=== PATIENT | female | born 1955 | race Caucasian/White ===

== ENCOUNTER → 2016-11-28 | Outpatient (CLI) | payer BC ==
[~2016-11-28] MED LIST: EZET10TA63 PO; GLC/500 PO; LEVO88TA PO; METO1TAB69 PO; METO50TA7 PO; OXYC-57 PO; POTA10CA28 PO; POTA20TA16 PO; TRIA37.5 PO
--- NOTE | 2016-11-28 16:45 | MAMMOGRAPHY REPORT ---
BILATERAL DIGITAL SCREENING MAMMOGRAM TOMOSYNTHESIS WITH CAD: 11/28/2016 CLINICAL HISTORY: Routine screening. Patient has no complaints. TECHNIQUE: Breast tomosynthesis in addition to standard 2D mammography was performed. Current study was also evaluated with a Computer Aided Detection (CAD) system. COMPARISON: Comparison is made to exams dated: 11/27/2015 mammogram, 11/22/2013 mammogram, 11/23/2014 [place] mogram, 11/18/2012 mammogram, 11/13/2011 mammogram, and 11/12/2010 mammogram - [facility] nt. BREAST COMPOSITION: The tissue of both breasts is almost entirely fatty. FINDINGS: No suspicious masses, calcifications, or areas of architectural distortion are noted in e ither breast. There has been no significant interval change compared to prior exams. IMPRESSION: ACR BI-RADS CATEGORY 1: NEGATIVE There is no mammographic evidence of malignancy. A 1 year screening mammogram is recommended. The p atient will receive written notification of the results. Approximately 10% of breast cancers are not detected with mammography. A negative mammographic repor t should not delay biopsy if a clinically suggestive mass is present. Mary Zapien M.D. /:11/28/2016 16:12:37 Tar Chaser: Yasmine PORTILLO(Tanja)(M), [facility] letter sent: Normal 1/2 BI-RADS Code: ACR BI-RADS Category 1: Negative
== END | disposition home or self-care (01) ==
LOC: C.MAMM 08:26
PROVIDERS: ATTEND Internal Medicine
DX: Z12.31 Encounter for screening mammogram for malignant neoplasm of breast (principal)

== ENCOUNTER → 2016-11-28 | Outpatient (CLI) | payer BC ==
[2016-11-28 10:07] LABS: BLOOD UREA NITROGEN 14 mg/dl (7-18); BUN/CREATININE RATIO 14.2 (10-20); CALCIUM 8.6 mg/dl (8.5-10.1); CARBON DIOXIDE 31 mmol/L (21-32); CHLORIDE 101 mmol/L (98-107); GLUCOSE 110 mg/dl (70-99); POTASSIUM 3.2 mmol/L (3.5-5.1); SODIUM 140 mmol/L (136-145)
[2016-11-28 10:18] LABS: CHOLESTEROL 194 mg/dl (0-200); CHOLESTEROL/HDL RATIO 4.3; HDL CHOLESTEROL 45 mg/dl; LDL CHOLESTEROL CALCULATED 124 mg/dl; TRIGLYCERIDES 125 mg/dl (0-150); VERY LOW DENSITY LIPOPROT CALC 25 mg/dl
[2016-11-28 10:40] LABS: ESTIMATED AVERAGE GLUCOSE 137 mg/dl; HA1C FLAG Normal (Normal)
== END | disposition home or self-care (01) ==
LOC: C.LAB1850 08:48
PROVIDERS: ATTEND Internal Medicine
DX: R73.03 Prediabetes (principal); E03.9 Hypothyroidism, unspecified; E78.5 Hyperlipidemia, unspecified

== ENCOUNTER 2016-12-15 19:22 | Inpatient (IN) | payer BC ==
[~2016-12-15] VITALS: Ht 154.9 cm; Wt 90.5 kg
[~2016-12-15 19:22] MED LIST changes: -OXYC-57 PO; -POTA10CA28 PO
[2016-12-15] MEDS ORDERED: SODIUM CHLORIDE 0.9% 1000ML 1,000 ML IV STA (19:59)
[2016-12-15] MEDS ORDERED: SODIUM CHLORIDE 0.9% 1000ML 500 ML IV STA (19:59)
[2016-12-15 20:07] LABS: BASO % 0.1 %; BASO ABS # 0.02 K/uL (0-0.2); COMPLETE YES; EOS % 1.1 %; HEMATOCRIT 46.1 % (37-47); IG% 0.2 %; LYMPH % 12.4 %; LYMPH ABS # 1.75 K/uL (1.2-3.4); MEAN CELL VOLUME 83.1 fL (80-100); MEAN CORPUSCULAR HEMOGLOBIN 28.8 pg (25-34); MEAN CORPUSCULAR HGB CONC 34.7 g/dl (32-36); MEAN PLATELET VOLUME 9.6 fL (7.4-10.4); MONO % 5.9 %; NEUT % 80.3 %; PLATELET COUNT 355 K/uL (130-400); RED BLOOD COUNT 5.55 M/uL (4.2-5.4); WHITE BLOOD COUNT 14.17 K/uL (4.8-10.8)
--- NOTE | 2016-12-15 20:11 | EMERGENCY ROOM VISIT NOTE ---
History Report prepared by Cesar: Carmen Longoria Under the Supervision of: Dr. Goldy Fernandez M.D. First contact with patient: 19:56 Chief Complaint: ABDOMINAL PAIN Stated Complaint: ABD/RT SIDE/BACK PAIN Nursing Triage Summary: Pt reports R sided abdominal pain off and on since August. Got worse today, now presents to ER for evaluation. Pt reports nausea today, but no other symptoms. History of Present Illness The patient is a 61 year old female who presents to the Emergency Room with complaints of intermittent right sided abdominal pain that began in August, but worsened this weekend. She rated her discomfort as an 8/10 in severity earlier today. The patient states that she has noticed her pain everywhere from her right flank, right upper quadrant abdominal pain, and epigastric pain. She states that her mother from pancreatic cancer, and states that she talked to Dr. Bartholomew regarding her symptoms several months ago. The patient states that Dr. Bartholomew didn't think that the pain was related to her pancreas, but offered an ultrasound. She states that she declined the ultrasound, and states that she let her symptoms go too long. The patient states that she has an appointment with Dr. Bartholomew tomorrow. She states that last evening she ate a piece of pizza and chips, and states that she noticed increased pain. The patient states that this evening she noticed chills, but denies any fever or urinary symptoms. She denies any previous abdominal surgeries. Source of History: patient Onset: August, worsened this weekend Position: abdomen (right sided) Symptom Intensity: 8/10 Timing: intermittent, worsening Modifying Factors (Worsening): eating (pizza) Associated Symptoms: + chills, No fevers, No urinary symptoms Review of Systems See HPI for pertinent positives & negatives. A total of 10 systems reviewed and were otherwise negative. Past Medical & Surgical No pertinent history stated. Family History Cancer Social History Smoking Status: Never Smoker Marital Status: Housing Status: lives with significant other Occupation Status: employed Current/Historical Medications Scheduled Ezetimibe (Zetia), 10 MG PO DAILY Levothyroxine Sodium (Synthroid), 88 MCG PO DAILY Metformin Hcl (Glucophage), 500 MG PO DAILY Metformin Hcl (Glucophage), 1,000 MG PO QPM Metoprolol Succ (Toprol Xl) (Toprol-Xl ), 100 MG PO DAILY Metoprolol Succ (Toprol Xl) (Toprol-Xl), 50 MG PO DAILY Triamterene/Hctz (Dyazide 37.5MG/25MG), 1 TAB PO DAILY Allergies Coded Allergies: Statins (Unverified Allergy, Unknown, ACHY, 12/15/16) Physical Exam Vital Signs Date Time Temp Pulse Resp B/P Pulse Ox O2 Delivery O2 Flow Rate FiO2 12/15/16 23:44 95 18 147/78 94 Room Air 12/15/16 22:11 97 16 159/82 97 Room Air 12/15/16 21:09 101 14 154/90 95 Room Air 12/15/16 19:29 37.4 113 16 179/84 97 Room Air Physical Exam GENERAL: Patient is in no acute distress. HEENT: No acute trauma, normocephalic atraumatic, mucous membranes moist, no nasal congestion, no scleral icterus. NECK: No stridor, no adenopathy, no meningismus, trachea is midline. LUNGS: Clear to auscultation bilaterally, no wheeze, no rhonchi, breath sounds equal. HEART: Tachycardic, with a regular rhythm, no murmurs. ABDOMEN: Soft, tender in the right upper quadrant and somewhat in the epigastrium, bowel sounds positive, no hernias, no peritonitis. EXTREMITIES: No cyanosis or edema, full range of motion of all the joints without pain or difficulty, no signs for acute trauma. NEUROLOGIC: Oriented x 3, no acute motor or sensory deficits, no focal weakness. SKIN: No rash, no jaundice, no diaphoresis. Medical Decision & Procedures ER Provider Diagnostic Interpretation: X ray results and stated below per my interpretation and radiologist interpretation. Other radiology results and stated below per my review and radiologist interpretation: CHEST ONE VIEW PORTABLE CLINICAL HISTORY: Abdominal pain. COMPARISON STUDY: No previous studies for comparison. FINDINGS: Lung volumes are normal. Lungs are clear. There is no pneumothorax or pleural effusion. Cardiac size is normal. Mediastinal contours are normal. There is no evidence of pulmonary edema. IMPRESSION: No acute cardiopulmonary findings. Electronically signed by: Ethan Mcneill M.D. 12/15/2016 8:26 PM Dictated Date/Time: 12/15/2016 8:[address] OF THE ABDOMEN AND PELVIS WITH CONTRAST CLINICAL HISTORY: Right-sided abdominal and back pain. COMPARISON STUDY: None. TECHNIQUE: Following IV administration of Optiray-320, axial images of the abdomen and pelvis were obtained from the lung bases to the proximal femurs. Images were reviewed in the axial, sagittal, and coronal planes. IV contrast was administered without complication. Oral contrast was administered. CT DOSE: 810.08 mGy.cm FINDINGS: Lung bases are clear. There is moderate gallbladder wall thickening with mild pericholecystic infiltration. There is a peripherally calcified abnormality within the gallbladder neck which could reflect a partially calcified gallstone or minimal calcification of the gallbladder wall. Note is made of mild biliary ductal dilatation. The common bile measures 8 mm in caliber. There is no peripancreatic infiltration. There is no pancreatic ductal dilatation. There is a suspected 1.1 cm cystic lesion within the pancreatic head shown on axial image 159 of 461. There is no evidence for a bowel obstruction. The caliber and wall thickness of small and large bowel are normal. No lymphadenopathy is present. No suspicious skeletal lesions are identified. The uterus is mildly enlarged and heterogeneous. A 2.1 cm hypodense anterior uterine body lesion likely reflects a fibroid. There is a bulbous appearance of the posterior uterine fundus that measures approximately 4.7 cm. This likely reflects an additional fibroid. No hepatic lesions are identified. The spleen is unremarkable with exception of several calcified granulomas. The adrenal glands and kidneys are normal. There is no hydronephrosis. IMPRESSION: 1. Moderate gallbladder wall thickening with mild pericholecystic infiltration suggestive of acute cholecystitis. Peripherally calcified abnormality within the gallbladder neck could reflect a gallstone or less likely gallbladder wall calcification. 2. Mild biliary ductal dilatation which could be correlated with obstructive liver function tests. No peripancreatic infiltration. 3. 1.1 cm cystic lesion within the pancreatic head. This likely reflects a side branch IPMN. A follow-up MRI of the pancreas in 6 months is recommended to ensure stability. 4. Suspected uterine fibroids. Nonemergent follow-up pelvic ultrasound is recommended for confirmation. Electronically signed by: Ethan Mcneill M.D. 12/15/2016 10:49 PM Dictated Date/Time: 12/15/2016 10:39 PM Laboratory Results 12/15/16 19:50 Red Blood Count 5.55, Mean Corpuscular Volume 83.1, Mean Corpuscular Hemoglobin 28.8, Mean Corpuscular Hemoglobin Concent 34.7, Mean Platelet Volume 9.6, Neutrophils (%) (Auto) 80.3, Lymphocytes (%) (Auto) 12.4, Monocytes (%) (Auto) 5.9, Eosinophils (%) (Auto) 1.1, Basophils (%) (Auto) 0.1, Neutrophils # (Auto) 11.37, Lymphocytes # (Auto) 1.75, Monocytes # (Auto) 0.84, Eosinophils # (Auto) 0.16, Basophils # (Auto) 0.02 12/15/16 19:50 Test 12/15/16 19:41 12/15/16 19:50 Urine Color DK YELLOW Urine Appearance CLEAR (CLEAR) Urine pH 5.5 (4.5-7.5) Urine Specific [place] 1.023 (1.000-1.030) Urine Protein NEG (NEG) Urine Glucose (UA) NEG (NEG) Urine Ketones 3+ (NEG) Urine Occult Blood NEG (NEG) Urine Nitrite NEG (NEG) Urine Bilirubin NEG (NEG) Urine Urobilinogen NEG (NEG) Urine Leukocyte Esterase NEG (NEG) White Blood Count 14.17 K/uL (4.8-10.8) Red Blood Count 5.55 M/uL (4.2-5.4) Hemoglobin 16.0 g/dL (12.0-16.0) Hematocrit 46.1 % (37-47) Mean Corpuscular Volume 83.1 fL (80-100) Mean Corpuscular Hemoglobin 28.8 pg (25-34) Mean Corpuscular Hemoglobin Concent 34.7 g/dl (32-36) Platelet Count 355 K/uL (130-400) Mean Platelet Volume 9.6 fL (7.4-10.4) Neutrophils (%) (Auto) 80.3 % Lymphocytes (%) (Auto) 12.4 % Monocytes (%) (Auto) 5.9 % Eosinophils (%) (Auto) 1.1 % Basophils (%) (Auto) 0.1 % Neutrophils # (Auto) 11.37 K/uL (1.4-6.5) Lymphocytes # (Auto) 1.75 K/uL (1.2-3.4) Monocytes # (Auto) 0.84 K/uL (0.11-0.59) Eosinophils # (Auto) 0.16 K/uL (0-0.5) Basophils # (Auto) 0.02 K/uL (0-0.2) RDW Standard Deviation 38.9 fL (36.4-46.3) RDW Coefficient of Variation 12.9 % (11.5-14.5) Immature Granulocyte % (Auto) 0.2 % Immature Granulocyte # (Auto) 0.03 K/uL (0.00-0.02) Anion Gap 9.0 mmol/L (3-11) Est Creatinine Clear Calc Drug Dose 60.5 ml/min Estimated GFR () 70.4 Estimated GFR (Non- 60.8 BUN/Creatinine Ratio 14.0 (10-20) Calcium Level 9.8 mg/dl (8.5-10.1) Total Bilirubin 1.1 mg/dl (0.2-1) Aspartate Amino Transf (AST/SGOT) 26 U/L (15-37) Alanine Aminotransferase (ALT/SGPT) 39 U/L (12-78) Alkaline Phosphatase 106 U/L (45-117) Troponin I < 0.015 ng/ml (0-0.045) Total Protein 8.7 gm/dl (6.4-8.2) Albumin 3.8 gm/dl (3.4-5.0) Globulin 4.9 gm/dl (2.5-4.0) Albumin/Globulin Ratio 0.8 (0.9-2) Lipase 236 U/L (73-393) Thyroid Stimulating Hormone (TSH) 1.870 uIu/ml (0.300-4.500) Laboratory results reviewed by me. Medications Administered Medications (Trade) Dose Ordered Sig/Joe Route Start Time Stop Time Status Last Admin Dose Admin Sodium Chloride 500 ml @ 999 mls/hr Q31M STAT IV 12/15/16 19:59 12/15/16 20:29 DC 12/15/16 20:27 999 MLS/HR Sodium Chloride 1,000 ml @ 200 mls/hr Q5H STAT IV 12/15/16 19:59 12/16/16 00:58 12/15/16 20:27 200 MLS/HR Sodium Chloride (Nss 500ml) 500 ml @ 999 mls/hr Q31M STAT IV 12/15/16 21:25 12/15/16 21:55 DC 12/15/16 21:25 999 MLS/HR Ondansetron HCl (Zofran Inj) 4 mg NOW STAT IV 12/15/16 21:52 12/15/16 21:53 DC 12/15/16 21:56 4 MG Piperacillin Sod/ Tazobactam Sod (Zosyn Iv) 4.5 gm NOW STAT IV 12/15/16 23:20 12/15/16 23:21 DC 12/15/16 23:41 4.5 GM Morphine Sulfate (MoRPHine SULFATE INJ) 4 mg Q15M PRN IV 12/15/16 23:30 12/29/16 23:29 12/15/16 23:39 4 MG ED Course 1956: The patient was evaluated in room B11B. A complete history and physical exam was performed. 1958: Ordered Sodium Chloride 1000 ml @ 200 mls/hr IV, Sodium Chloride 500 ml @ 999 mls/hr IV. 2124: Ordered Sodium Chloride 1000 ml @ 500 mls/hr IV. 2151: Per nursing staff the patient is nauseous. Ordered Zofran Inj 4 mg IV. 2321: I reevaluated the patient and she is resting comfortably. I discussed the exam findings with her and I discussed the treatment plan. She verbalized complete understanding and agreement. Surgery has been paged for the patient and the surgeon is going to call back as soon as he is out of the operating room. 0: Ordered Zosyn IV 4.5 gm IV. 2330: Ordered Morphine Sulfate 4 mg IV. Medical Decision The patient is a 61 year old female who presents to the ED with complaints of abdominal pain. Differential diagnoses considered include biliary colic, pancreatitis, hepatitis, acute cholecystitis, pneumonia, diverticulitis, appendicitis, UTI, musculoskeletal pain. There is a moderate leukocytosis which is consistent with infection, no concerning anemia. No significant electrolyte abnormality, kidney failure or hepatitis. There is no pancreatitis. The patient appears to be in a euthyroid state. Urinalysis does not show evidence for infection. Chest x-ray shows no pneumonia or free air. EKG shows a sinus tachycardia, no acute ischemia. Cardiac enzyme testing times one is not consistent with acute cardiac injury. Abdominal CT shows evidence for acute cholecystitis. The patient received IV Zosyn for antibiotic coverage. She was given IV Zofran and IV saline. She was given IV morphine for pain control. The patient presents with abdominal pain. She was tender in the right upper quadrant and epigastrium. She appears to have acute cholecystitis by workup. Admission/observation is warranted. The on-call surgeon has been consulted. I discussed my findings with the patient and case management. Consults Time Called: 2320 Consulting Physician: General Surgeon Impression Primary Impression: Acute cholecystitis Scribe Attestation The scribe's documentation has been prepared under my direction and personally reviewed by me in its entirety. I confirm that the note above accurately reflects all work, treatment, procedures, and medical decision making performed by me. Departure Information Dispostion Being Evaluated By Surgeon Referrals Pro,Mejia Sinha M.D. (PCP)
[2016-12-15] MEDS ORDERED: OPTIRAY 320 IV PRN (20:15)
[2016-12-15 20:24] LABS: ALT/SGPT 39 U/L (12-78); BLOOD UREA NITROGEN 14 mg/dl (7-18); CALCIUM 9.8 mg/dl (8.5-10.1); CARBON DIOXIDE 30 mmol/L (21-32); CHLORIDE 95 mmol/L (98-107); GLUCOSE 125 mg/dl (70-99); POTASSIUM 3.1 mmol/L (3.5-5.1); SODIUM 134 mmol/L (136-145)
[2016-12-15 20:25] LABS: URINE APPEARANCE CLEAR (CLEAR); URINE BILIRUBIN NEG (NEG); URINE COLOR DK YELLOW; URINE NITRITE NEG (NEG); URINE PH 5.5 (4.5-7.5); URINE SPECIFIC GRAVITY 1.023 (1.000-1.030); UROBILINOGEN NEG (NEG); ZZUR CULT IF INDIC CLEAN CATCH NO
[2016-12-15 20:27] LABS: MANUAL MICROSCOPIC REQUIRED? NO; REVIEW REQ? NO
--- NOTE | 2016-12-15 20:27 | DIAGNOSTIC IMAGING REPORT ---
CHEST ONE VIEW PORTABLE CLINICAL HISTORY: Abdominal pain. COMPARISON STUDY: No previous studies for comparison. FINDINGS: Lung volumes are normal. Lungs are clear. There is no pneumothorax or pleural effusion. Cardiac size is normal. Mediastinal contours are normal. There is no evidence of pulmonary edema. IMPRESSION: No acute cardiopulmonary findings. Electronically signed by: Ethan Mcneill M.D. 12/15/2016 8:26 PM Dictated Date/Time: 12/15/2016 8:25 PM
[2016-12-15 20:34] LABS: ALB/GLOB RATIO 0.8 (0.9-2); ALKALINE PHOSPHATASE 106 U/L (45-117); AST/SGOT 26 U/L (15-37)
[2016-12-15] MEDS ORDERED: SODIUM CHLORIDE 0.9% 500ML 500 ML IV STA (21:25)
[2016-12-15] MEDS ORDERED: ONDANSETRON INJ 2 MG/ML 2 ML VIAL IV STA (21:52)
--- NOTE | 2016-12-15 22:51 | DIAGNOSTIC IMAGING REPORT ---
CT OF THE ABDOMEN AND PELVIS WITH CONTRAST CLINICAL HISTORY: Right-sided abdominal and back pain. COMPARISON STUDY: None. TECHNIQUE: Following IV administration of Optiray-320, axial images of the abdomen and pelvis were obtained from the lung bases to the proximal femurs. Images were reviewed in the axial, sagittal, and coronal planes. IV contrast was administered without complication. Oral contrast was administered. CT DOSE: 810.08 mGy.cm FINDINGS: Lung bases are clear. There is moderate gallbladder wall thickening with mild pericholecystic infiltration. There is a peripherally calcified abnormality within the gallbladder neck which could reflect a partially calcified gallstone or minimal calcification of the gallbladder wall. Note is made of mild biliary ductal dilatation. The common bile measures 8 mm in caliber. There is no peripancreatic infiltration. There is no pancreatic ductal dilatation. There is a suspected 1.1 cm cystic lesion within the pancreatic head shown on axial image 159 of 461. There is no evidence for a bowel obstruction. The caliber and wall thickness of small and large bowel are normal. No lymphadenopathy is present. No suspicious skeletal lesions are identified. The uterus is mildly enlarged and heterogeneous. A 2.1 cm hypodense anterior uterine body lesion likely reflects a fibroid. There is a bulbous appearance of the posterior uterine fundus that measures approximately 4.7 cm. This likely reflects an additional fibroid. No hepatic lesions are identified. The spleen is unremarkable with exception of several calcified granulomas. The adrenal glands and kidneys are normal. There is no hydronephrosis. IMPRESSION: 1. Moderate gallbladder wall thickening with mild pericholecystic infiltration suggestive of acute cholecystitis. Peripherally calcified abnormality within the gallbladder neck could reflect a gallstone or less likely gallbladder wall calcification. 2. Mild biliary ductal dilatation which could be correlated with obstructive liver function tests. No peripancreatic infiltration. 3. 1.1 cm cystic lesion within the pancreatic head. This likely reflects a side branch IPMN. A follow-up MRI of the pancreas in 6 months is recommended to ensure stability. 4. Suspected uterine fibroids. Nonemergent follow-up pelvic ultrasound is recommended for confirmation. Electronically signed by: Ethan Mcneill M.D. 12/15/2016 10:49 PM Dictated Date/Time: 12/15/2016 10:39 PM
[2016-12-15] MEDS ORDERED: PIPERACILLIN/TAZOBACTAM 4.5 GM/100ML D5W IV STA (23:20)
[2016-12-15] MEDS ORDERED: MoRPHine SULFATE 4 MG/ML 1 ML CARP\\VIAL IV PRN (23:30)
--- NOTE | 2016-12-16 00:33 | History and Physical ---
History & Physical Date & Time of Service: Dec 16, 2016 at 00:26 Chief Complaint: Abd/Rt Side/Back Pain Primary Care Physician: Mejia Bartholomew M.D. History of Present Illness Source: patient The patient is a 61 year old female who presents to the Emergency Room with complaints of intermittent right sided abdominal pain that began in August, but worsened this weekend. She rated her discomfort as an 8/10 in severity earlier today. The patient states that she has noticed her pain everywhere from her right flank, right upper quadrant abdominal pain, and epigastric pain.pt denies diarrhea, no fever, Family History Cancer Social History Smoking Status: Never Smoker Smokeless Tobacco Use: No Alcohol Use: none Drug Use: none Marital Status: Occupational Status: employed Multi-Drug Resistant Organisms History of MDRO: No Allergies Coded Allergies: Statins (Unverified Allergy, Unknown, ACHY, 12/15/16) Home Medications Scheduled Ezetimibe (Zetia), 10 MG PO DAILY Levothyroxine Sodium (Synthroid), 88 MCG PO DAILY Metformin Hcl (Glucophage), 500 MG PO DAILY Metformin Hcl (Glucophage), 1,000 MG PO QPM Metoprolol Succ (Toprol Xl) (Toprol-Xl ), 100 MG PO DAILY Metoprolol Succ (Toprol Xl) (Toprol-Xl), 50 MG PO DAILY Triamterene/Hctz (Dyazide 37.5MG/25MG), 1 TAB PO DAILY Review of Systems Constitutional: No chills, No fatigue, No fever, No problem reported, No sweats , No weakness, No weight loss Eyes: No diplopia, No discharge, No eye pain, No problem reported, No redness, No worsening of vision ENT: No dental problems, No hearing loss, No nasal symptoms, No problem reported, No sore throat, No tinnitus, No trouble swallowing, No unusual epistaxis Respiratory: No cough, No dyspnea at rest, No dyspnea on exertion, No hemoptysis, No problem reported, No shortness of breath, No sputum, No wheezing Cardiovascular: No PND, No chest pain, No claudication, No edema, No orthopnea , No palpitations, No problem reported Abdomen: + nausea, + pain, + vomiting Genitourinary - Female: No dysmenorrhea, No dysuria, No hematuria, No menorrhagia, No metrorrhagia, No , No problem reported, No rash, No urinary frequency, No urinary incontinence, No urinary retention, No urinary urgency, No vaginal bleeding, No vaginal discharge, No vaginal itching, No vulvodynia Neurologic: No balance problems, No memory loss, No numbness/tingling, No paralysis, No problem reported, No vertigo, No weakness Psychiatric: No anhedonism, No anxiety, No depression symptoms, No insomnia, No problem reported, No substance abuse Endocrine: No excessive thirst, No excessive urination, No fatigue, No problem reported Hematologic / Lymphatic: No abnormal bleeding/bruising, No clotting problems, No night sweats, No problem reported, No swollen lymph nodes Physical Exam Vital Signs Date Time Temp Pulse Resp B/P Pulse Ox O2 Delivery O2 Flow Rate FiO2 12/15/16 23:44 95 18 147/78 94 Room Air 12/15/16 22:11 97 16 159/82 97 Room Air 12/15/16 21:09 101 14 154/90 95 Room Air 12/15/16 19:29 37.4 113 16 179/84 97 Room Air General Appearance: WD/WN Head: normocephalic Eyes: normal inspection ENT: normal ENT inspection Neck: supple, no JVD Respiratory/Chest: chest non-tender, lungs clear, normal breath sounds Cardiovascular: regular rate, rhythm, no edema, no gallop, no JVD Abdomen/GI: soft, + tenderness Genitourinary - Female: external genitalia normal Extremities/Musculoskelatal: normal inspection, no calf tenderness, normal capillary refill Neurologic/Psych: no motor/sensory deficits, alert, normal mood/affect Skin: normal color, warm/dry, no rash Diagnostics Laboratory Results Results Past 24 Hours Test 12/15/16 19:41 12/15/16 19:50 Range/Units Urine Color DK YELLOW Urine Appearance CLEAR CLEAR Urine pH 5.5 4.5-7.5 Urine Specific [place] 1.023 1.000-1.030 Urine Protein NEG NEG Urine Glucose (UA) NEG NEG Urine Ketones 3+ NEG Urine Occult Blood NEG NEG Urine Nitrite NEG NEG Urine Bilirubin NEG NEG Urine Urobilinogen NEG NEG Urine Leukocyte Esterase NEG NEG White Blood Count 14.17 4.8-10.8 K/uL Red Blood Count 5.55 4.2-5.4 M/uL Hemoglobin 16.0 12.0-16.0 g/dL Hematocrit 46.1 37-47 % Mean Corpuscular Volume 83.1 80-100 fL Mean Corpuscular Hemoglobin 28.8 25-34 pg Mean Corpuscular Hemoglobin Concent 34.7 32-36 g/dl Platelet Count 355 130-400 K/uL Mean Platelet Volume 9.6 7.4-10.4 fL Neutrophils (%) (Auto) 80.3 % Lymphocytes (%) (Auto) 12.4 % Monocytes (%) (Auto) 5.9 % Eosinophils (%) (Auto) 1.1 % Basophils (%) (Auto) 0.1 % Neutrophils # (Auto) 11.37 1.4-6.5 K/uL Lymphocytes # (Auto) 1.75 1.2-3.4 K/uL Monocytes # (Auto) 0.84 0.11-0.59 K/uL Eosinophils # (Auto) 0.16 0-0.5 K/uL Basophils # (Auto) 0.02 0-0.2 K/uL RDW Standard Deviation 38.9 36.4-46.3 fL RDW Coefficient of Variation 12.9 11.5-14.5 % Immature Granulocyte % (Auto) 0.2 % Immature Granulocyte # (Auto) 0.03 0.00-0.02 K/uL Sodium Level 134 136-145 mmol/L Potassium Level 3.1 3.5-5.1 mmol/L Chloride Level 95 98-107 mmol/L Carbon Dioxide Level 30 21-32 mmol/L Anion Gap 9.0 3-11 mmol/L Blood Urea Nitrogen 14 7-18 mg/dl Creatinine 1.00 0.60-1.20 mg/dl Est Creatinine Clear Calc Drug Dose 60.5 ml/min Estimated GFR () 70.4 Estimated GFR (Non- 60.8 BUN/Creatinine Ratio 14.0 10-20 Random Glucose 125 70-99 mg/dl Calcium Level 9.8 8.5-10.1 mg/dl Total Bilirubin 1.1 0.2-1 mg/dl Aspartate Amino Transf (AST/SGOT) 26 15-37 U/L Alanine Aminotransferase (ALT/SGPT) 39 12-78 U/L Alkaline Phosphatase 106 45-117 U/L Troponin I < 0.015 0-0.045 ng/ml Total Protein 8.7 6.4-8.2 gm/dl Albumin 3.8 3.4-5.0 gm/dl Globulin 4.9 2.5-4.0 gm/dl Albumin/Globulin Ratio 0.8 0.9-2 Lipase 236 73-393 U/L Thyroid Stimulating Hormone (TSH) 1.870 0.300-4.500 uIu/ml Diagnostic Radiology CT scan-IMPRESSION: 1. Moderate gallbladder wall thickening with mild pericholecystic infiltration suggestive of acute cholecystitis. Peripherally calcified abnormality within the gallbladder neck could reflect a gallstone or less likely gallbladder wall calcification. 2. Mild biliary ductal dilatation which could be correlated with obstructive liver function tests. No peripancreatic infiltration. 3. 1.1 cm cystic lesion within the pancreatic head. This likely reflects a side branch IPMN. A follow-up MRI of the pancreas in 6 months is recommended to ensure stability. 4. Suspected uterine fibroids. Nonemergent follow-up pelvic ultrasound is recommended for confirmation. Impression Assessment and Plan IMP acute cholecystitis Plan: admit to hospital IV fluid, antibiotic, control pain U/S study gallbladder possible do laparoscopic cholecystectomy tomorrow, D/W benefits, risks and alternatives of the procedure, the risks- infection, bleeding, injury CBD, bowel , NH, DVT, stroke, , pt understood, she agrees with the plan. I answered all questions, ASA Classification: ASA Class II Level of Care Med/Surg VTE Prophylaxis Given or contraindicated: SCD's
[2016-12-16] MEDS ORDERED: IV FLUIDS COMPLETED PRN (02:30)
[2016-12-16 02:41] VITALS: Ht 154.9 cm; Wt 90.5 kg
[2016-12-16] MEDS: HYDROmorphone INJ 1 MG/ML SYR IV PRN ×2 (04:25→07:45)
[2016-12-16] MEDS: D5W AND 1/2NSS + 40MEQ KCL 1,000 ML IV SCH ×3 (04:25→23:16)
[2016-12-16] MEDS: ONDANSETRON INJ 2 MG/ML 2 ML VIAL IV PRN ×2 (04:25→12:07)
[2016-12-16] MEDS ORDERED: NURSING VERBAL MED ORDER ONE ×2 (04:30→17:45)
[2016-12-16] MEDS: PIPERACILL/TAZOBAC IV 3.375 GM in DEXTROSE 5% 100ML 100 ML IV SCH ×3 (05:38→22:34)
[2016-12-16] MEDS: OXYCODONE/ACETAMINOPHEN 5-325 TAB PO PRN (05:56)
[2016-12-16 07:18] VITALS: BP 128/77; PULSE 91; TEMP 36.8; O2SAT 91
--- NOTE | 2016-12-16 07:18 | DIAGNOSTIC IMAGING REPORT ---
ULTRASOUND RIGHT UPPER QUADRANT ABDOMEN CLINICAL HISTORY: Right upper quadrant abdominal pain. COMPARISON STUDY: Abdominal CT dated 12/15/2016. TECHNIQUE: Real-time, grayscale, and color flow sonography of the right upper quadrant of the abdomen was performed. Images are reviewed in the transverse and longitudinal planes. FINDINGS: Liver: The liver is enlarged and demonstrates heterogeneously increased echotexture consistent with severe hepatic steatosis. Fatty sparing is noted adjacent to gallbladder fossa. There is mild central intrahepatic biliary ductal dilatation. The main portal vein is patent. Gallbladder: There are shadowing calcified gallstones and biliary sludge. The gallbladder is significantly distended and the wall is thickened measuring up to 5 mm. There is trace pericholecystic fluid. A sonographic Gilbert's sign is reportedly present. The common bile duct measures up to 1.0 cm in diameter. Pancreas: Visualized portions of the pancreatic head and body are normal in appearance. Right kidney: Survey images of the right kidney demonstrate mild cortical atrophy. There is no hydronephrosis. Ascites: None. IMPRESSION: 1. Cholelithiasis with evidence of acute cholecystitis. Surgical consultation is advised. 2. Hepatomegaly and severe hepatic steatosis. 3. The common bile duct is dilated measuring up to 1.0 cm. There is also intrahepatic biliary ductal dilatation. Electronically signed by: Goldy Jimenez M.D. 12/16/2016 7:16 AM Dictated Date/Time: 12/16/2016 7:14 AM
[2016-12-16 12:39] LABS: HEMATOCRIT 41.5 % (37-47); MEAN CELL VOLUME 84.2 fL (80-100); MEAN CORPUSCULAR HEMOGLOBIN 29.6 pg (25-34); MEAN PLATELET VOLUME 9.7 fL (7.4-10.4); PLATELET COUNT 337 K/uL (130-400); RED BLOOD COUNT 4.93 M/uL (4.2-5.4); WHITE BLOOD COUNT 14.48 K/uL (4.8-10.8)
[2016-12-16 12:48] LABS: MEAN CORPUSCULAR HGB CONC 35.2 g/dl (32-36)
[2016-12-16 12:49] LABS: BUN/CREATININE RATIO 12.1 (10-20); CALCIUM 8.8 mg/dl (8.5-10.1); CREATININE 0.94 mg/dl (0.60-1.20); POTASSIUM 3.8 mmol/L (3.5-5.1)
--- NOTE | 2016-12-16 12:54 | Surgery Progress Note ---
Surgery Progress Note Date of Service Dec 16, 2016. Subjective Post OP Day: HD # 1 + feeling well, + nausea, + pain controlled, + vomiting (vomited this am), No SOB, No chest pain, No complaints Objective Vital Signs: Date Time Temp Pulse Resp B/P Pulse Ox O2 Delivery O2 Flow Rate FiO2 12/16/16 07:40 Room Air 12/16/16 07:18 36.8 91 16 128/77 91 Room Air 12/16/16 02:49 Room Air 12/16/16 02:41 Room Air 12/16/16 01:04 97 20 163/94 96 Room Air 12/15/16 23:44 95 18 147/78 94 Room Air 12/15/16 22:11 97 16 159/82 97 Room Air 12/15/16 21:09 101 14 154/90 95 Room Air 12/15/16 19:29 37.4 113 16 179/84 97 Room Air General Appearance: WD/WN, no apparent distress, + obese Head: normocephalic, atraumatic Respiratory/Chest: no respiratory distress, no accessory muscle use Abdomen: non distended, soft, + tenderness (RUQ) Laboratory Results: Results Past 24 Hours Test 12/15/16 19:41 12/15/16 19:50 12/16/16 12:22 Range/Units Urine Color DK YELLOW Urine Appearance CLEAR CLEAR Urine pH 5.5 4.5-7.5 Urine Specific [place] 1.023 1.000-1.030 Urine Protein NEG NEG Urine Glucose (UA) NEG NEG Urine Ketones 3+ NEG Urine Occult Blood NEG NEG Urine Nitrite NEG NEG Urine Bilirubin NEG NEG Urine Urobilinogen NEG NEG Urine Leukocyte Esterase NEG NEG White Blood Count 14.17 14.48 4.8-10.8 K/uL Red Blood Count 5.55 4.93 4.2-5.4 M/uL Hemoglobin 16.0 14.6 12.0-16.0 g/dL Hematocrit 46.1 41.5 37-47 % Mean Corpuscular Volume 83.1 84.2 80-100 fL Mean Corpuscular Hemoglobin 28.8 29.6 25-34 pg Mean Corpuscular Hemoglobin Concent 34.7 35.2 32-36 g/dl Platelet Count 355 337 130-400 K/uL Mean Platelet Volume 9.6 9.7 7.4-10.4 fL Neutrophils (%) (Auto) 80.3 % Lymphocytes (%) (Auto) 12.4 % Monocytes (%) (Auto) 5.9 % Eosinophils (%) (Auto) 1.1 % Basophils (%) (Auto) 0.1 % Neutrophils # (Auto) 11.37 1.4-6.5 K/uL Lymphocytes # (Auto) 1.75 1.2-3.4 K/uL Monocytes # (Auto) 0.84 0.11-0.59 K/uL Eosinophils # (Auto) 0.16 0-0.5 K/uL Basophils # (Auto) 0.02 0-0.2 K/uL RDW Standard Deviation 38.9 39.8 36.4-46.3 fL RDW Coefficient of Variation 12.9 13.2 11.5-14.5 % Immature Granulocyte % (Auto) 0.2 % Immature Granulocyte # (Auto) 0.03 0.00-0.02 K/uL Sodium Level 134 136 136-145 mmol/L Potassium Level 3.1 3.8 3.5-5.1 mmol/L Chloride Level 95 102 98-107 mmol/L Carbon Dioxide Level 30 23 21-32 mmol/L Anion Gap 9.0 11.0 3-11 mmol/L Blood Urea Nitrogen 14 11 7-18 mg/dl Creatinine 1.00 0.94 0.60-1.20 mg/dl Est Creatinine Clear Calc Drug Dose 60.5 64.3 ml/min Estimated GFR () 70.4 75.9 Estimated GFR (Non- 60.8 65.5 BUN/Creatinine Ratio 14.0 12.1 10-20 Random Glucose 125 172 70-99 mg/dl Calcium Level 9.8 8.8 8.5-10.1 mg/dl Total Bilirubin 1.1 0.2-1 mg/dl Aspartate Amino Transf (AST/SGOT) 26 226 15-37 U/L Alanine Aminotransferase (ALT/SGPT) 39 205 12-78 U/L Alkaline Phosphatase 106 45-117 U/L Troponin I < 0.015 0-0.045 ng/ml Total Protein 8.7 6.4-8.2 gm/dl Albumin 3.8 2.9 3.4-5.0 gm/dl Globulin 4.9 2.5-4.0 gm/dl Albumin/Globulin Ratio 0.8 0.9-2 Lipase 236 73-393 U/L Thyroid Stimulating Hormone (TSH) 1.870 0.300-4.500 uIu/ml Hepatitis C Antibody Screen NEG NEG Assessment & Plan Acute Cholecystitis Dilated CBD - Leukocytosis of 14.8 - CMP pending - Abdominal pain controlled with Dilaudid - slight nausea Plan: Continue IV fluids, IV antibiotics and pain management Start full liquids NPO after midnight Plan for Laparoscopic Cholecystectomy tomorrow Repeat labs in am Encouraged ambulation Dr. Herrmann has seen and examined patient, agrees with above stated findings and treatment plan.
[2016-12-16 12:55] LABS: ALB/GLOB RATIO 0.7 (0.9-2)
--- NOTE | 2016-12-16 15:10 | Gastrointestinal Consultation ---
Gastrointestinal Consultation Date of Consultation: Dec 16, 2016 Consulting Physician: Stoney Reason for Consultation: choledocolithiasis, CBD dilation History of Present Illness Patient is a 61 year old female with past medical history significant for insulin resistance, HTN, hypothyroidism and dyslipidemia who presented to the ED with severe right upper quadrant abdominal pain. She reports for the past few months she has had intermittent abdominal discomfort, right upper quadrant and epigastric region. This pain would wax and wane. Two days ago, after dinner there was an abrupt onset increase in pain 7/10. This was located in the right upper quadrant and epigastric region. It was sharp stabbing and did not radiate. There was associated nausea and vomiting. and she was unable to identify alleviating factors. No other GI symptoms reported. No change in bowels , black/bloody stools, unintentional weight loss, fever, chills, chest pain, SOB. GI was consulted this morning with new elevating in LFTs and a lipase of 2502. RUQ US 12/16/16: Cholelithiasis with evidence of acute cholecystitis. Surgical consultation is advised. Hepatomegaly and severe hepatic steatosis. The common bile duct is dilated measuring up to 1.0 cm. There is also intrahepatic biliary ductal dilatation. CT abd 12/15/16: Moderate gallbladder wall thickening with mild pericholecystic infiltration suggestive of acute cholecystitis. Peripherally calcified abnormality within the gallbladder neck could reflect a gallstone or less likely gallbladder wall calcification. Mild biliary ductal dilatation which could be correlated with obstructive liver function tests. No peripancreatic infiltration. 1.1 cm cystic lesion within the pancreatic head. This likely reflects a side branch IPMN. A follow-up MRI of the pancreas in 6 months is recommended to ensure stability. Suspected uterine fibroids. Nonemergent follow- up pelvic ultrasound is recommended for confirmation. Past Medical/Surgical History Medical Problems: (1) Acute cholecystitis Status: Acute Family History Cancer Social History Smoking Status: Never Smoker Drug Use: none Marital Status: Housing Status: lives with significant other Occupation Status: employed Allergies Coded Allergies: Statins (Unverified Allergy, Unknown, ACHY, 12/15/16) Current Medications Home Meds and Scripts Medications Dose Route/Sig Max Daily Dose Days Date Category Dose Instructions Toprol-Xl (Metoprolol Succinate) 50 Mg Tabcr 50 Mg PO DAILY 10/11/13 Reported TAKE WITH 100 MG TABLET TO EQUAL 150 MG'S A DAY. Zetia (Ezetimibe) 10 Mg Tab 10 Mg PO DAILY 10/11/13 Reported Dyazide 37.5MG/25MG (Triamterene/HCTZ) Cap 1 Tab PO DAILY 10/11/13 Reported Toprol-Xl (Metoprolol Succinate) 100 Mg Tabcr 100 Mg PO DAILY 10/11/13 Reported TAKE WITH 50 MG TABLET TO EQUAL 150 MG'S DAILY. Glucophage (Metformin Hcl) 500 Mg Tab 1,000 Mg PO QPM 10/11/13 Reported TAKE 2 TABLETS AT DINNER Glucophage (Metformin Hcl) 500 Mg Tab 500 Mg PO DAILY 10/11/13 Reported TAKE ONE TABLET WITH BREAKFAST. Synthroid (Levothyroxine Sodium) 88 Mcg Tab 88 Mcg PO DAILY 10/11/13 Reported Review of Systems Constitutional: No chills, No fever Respiratory: No cough, No shortness of breath Cardiac: No chest pain, No edema Abdomen: + nausea, + pain, No GI bleeding, No constipation, No diarrhea, No vomiting Physical Exam Date Time Temp Pulse Resp B/P Pulse Ox O2 Delivery O2 Flow Rate FiO2 12/16/16 07:40 Room Air 12/16/16 07:18 36.8 91 16 128/77 91 Room Air 12/16/16 02:49 Room Air 12/16/16 02:41 Room Air 12/16/16 01:04 97 20 163/94 96 Room Air 12/15/16 23:44 95 18 147/78 94 Room Air 12/15/16 22:11 97 16 159/82 97 Room Air 12/15/16 21:09 101 14 154/90 95 Room Air 12/15/16 19:29 37.4 113 16 179/84 97 Room Air General Appearance: no apparent distress Eyes: PERRL, EOMI ENT: hearing grossly normal Neck: supple, trachea midline Respiratory/Chest: lungs clear, normal breath sounds, no respiratory distress, no accessory muscle use Cardiovascular: regular rate, rhythm, no edema, no gallop, no murmur Abdomen: normal bowel sounds, soft, no organomegaly, no pulsatile mass, + tenderness (epigastric tenderness with palpation) Neurologic/Psych: alert, normal mood/affect, oriented x 3 Skin: normal color, no jaundice, warm/dry Laboratory Results Last 24 Hours Test 12/15/16 19:41 12/15/16 19:50 12/16/16 12:22 Urine Color DK YELLOW Urine Appearance CLEAR Urine pH 5.5 Urine Specific [place] 1.023 Urine Protein NEG Urine Glucose (UA) NEG Urine Ketones 3+ Urine Occult Blood NEG Urine Nitrite NEG Urine Bilirubin NEG Urine Urobilinogen NEG Urine Leukocyte Esterase NEG White Blood Count 14.17 K/uL 14.48 K/uL Red Blood Count 5.55 M/uL 4.93 M/uL Hemoglobin 16.0 g/dL 14.6 g/dL Hematocrit 46.1 % 41.5 % Mean Corpuscular Volume 83.1 fL 84.2 fL Mean Corpuscular Hemoglobin 28.8 pg 29.6 pg Mean Corpuscular Hemoglobin Concent 34.7 g/dl 35.2 g/dl Platelet Count 355 K/uL 337 K/uL Mean Platelet Volume 9.6 fL 9.7 fL Neutrophils (%) (Auto) 80.3 % Lymphocytes (%) (Auto) 12.4 % Monocytes (%) (Auto) 5.9 % Eosinophils (%) (Auto) 1.1 % Basophils (%) (Auto) 0.1 % Neutrophils # (Auto) 11.37 K/uL Lymphocytes # (Auto) 1.75 K/uL Monocytes # (Auto) 0.84 K/uL Eosinophils # (Auto) 0.16 K/uL Basophils # (Auto) 0.02 K/uL RDW Standard Deviation 38.9 fL 39.8 fL RDW Coefficient of Variation 12.9 % 13.2 % Immature Granulocyte % (Auto) 0.2 % Immature Granulocyte # (Auto) 0.03 K/uL Sodium Level 134 mmol/L 136 mmol/L Potassium Level 3.1 mmol/L 3.8 mmol/L Chloride Level 95 mmol/L 102 mmol/L Carbon Dioxide Level 30 mmol/L 23 mmol/L Anion Gap 9.0 mmol/L 11.0 mmol/L Blood Urea Nitrogen 14 mg/dl 11 mg/dl Creatinine 1.00 mg/dl 0.94 mg/dl Est Creatinine Clear Calc Drug Dose 60.5 ml/min 64.3 ml/min Estimated GFR () 70.4 75.9 Estimated GFR (Non- 60.8 65.5 BUN/Creatinine Ratio 14.0 12.1 Random Glucose 125 mg/dl 172 mg/dl Calcium Level 9.8 mg/dl 8.8 mg/dl Total Bilirubin 1.1 mg/dl 3.8 mg/dl Aspartate Amino Transf (AST/SGOT) 26 U/L 226 U/L Alanine Aminotransferase (ALT/SGPT) 39 U/L 205 U/L Alkaline Phosphatase 106 U/L 176 U/L Troponin I < 0.015 ng/ml Total Protein 8.7 gm/dl 7.2 gm/dl Albumin 3.8 gm/dl 2.9 gm/dl Globulin 4.9 gm/dl 4.3 gm/dl Albumin/Globulin Ratio 0.8 0.7 Lipase 236 U/L 2502 U/L Thyroid Stimulating Hormone (TSH) 1.870 uIu/ml Hepatitis C Antibody Screen NEG Impression Patient is a 61 year old female with gallstones pancreatitis and elevated LFTs. Differentials include gallstone pancreatitis, suspected choledocholithiasis and suspected cholangitis Plan MRCP 1 mg IV ativan 15-20 minutes before MRCP for anxiety/claustrophobia NPO - bowel rest and for procedure tomorrow EUS/ERCP tomorrow with Dr. Lua LR 200 ml/hr antiemetics as needed pain medications as needed I have seen and evaluated the patient. She presented last evening with abdominal pain nausea and vomiting. Of note her liver enzymes have increased and she is now mildly jaundiced. She reports having persistent nausea and right -sided abdominal discomfort. Physical examination Mild scleral icterus Right upper quadrant tender to outpatient Impression I suspect the patient may have choledocholithiasis and would suggest an MRCP tonight. If the study is negative I would then recommend we proceed with endoscopic ultrasound and ERCP if positive. Recommendations Continue broad-spectrum antibiotics MRCP ordered ERCP arranged for Thursday
--- NOTE | 2016-12-16 15:51 | Anesthesiology Progress Note ---
Anesthesia Progress Note Date of Service Dec 16, 2016. Progress Notes Patient for possible l/s ryan and/or EUS/ERCP tomorrow. Chart reviewed, spoke with patient about the anesthesia and answered her questions. Perop eval and consent in holding.
[2016-12-16] MEDS ORDERED: LORAZEPAM INJ 1 MG in SYRINGE 0.5 ML IV ONE (16:00)
[2016-12-16 17:15] VITALS: BP 126/81; PULSE 79; TEMP 36.9; O2SAT 91
[2016-12-16] MEDS ORDERED: PROMETHAZINE HCL INJ 12.5 MG in SODIUM CHLORIDE 0.9% 50ML 50 ML IV PRN (18:00)
--- NOTE | 2016-12-16 20:52 | DIAGNOSTIC IMAGING REPORT ---
MAGNETIC RESONANCE CHOLANGIOPANCREATOGRAPHY CLINICAL HISTORY: Acute cholecystitis. Ductal dilatation. COMPARISON STUDY: Abdominal ultrasound dated 12/08/2016, CT scan dated 12/15/2016 FINDINGS: There is mild intrahepatic biliary ductal dilatation. There is cholelithiasis. There is sludge in the gallbladder. There is pericholecystic fluid. The findings are indicative of acute cholecystitis. There is no pancreatic ductal dilatation. The common bile duct measures 9.5 mm. There is a suspected distal common bile duct calculus measuring 5 mm. IMPRESSION: 1. MRCP findings indicative of acute cholecystitis with gallstones, gallbladder sludge, and pericholecystic fluid 2. Intra and extrahepatic biliary ductal dilatation. The common bile duct measures 9.5 mm 3. 5 mm filling defect within the distal common bile duct, consistent with a calculus. Electronically signed by: Jose Juan Jiang M.D. 12/16/2016 8:50 PM Dictated Date/Time: 12/16/2016 8:45 PM
[2016-12-16 23:37] VITALS: BP 119/69; PULSE 85; TEMP 36.5; O2SAT 96
[2016-12-17] VITALS (8 sets, daily range): BP systolic 135–163; BP diastolic 81–94; PULSE 91–117; TEMP 36.5–37.2; O2SAT 91–99
[2016-12-17 08:39] LABS: BASO % 0.1 %; BASO ABS # 0.01 K/uL (0-0.2); COMPLETE YES; EOS % 3.9 %; HEMATOCRIT 37.8 % (37-47); IG% 0.1 %; LYMPH % 16.2 %; LYMPH ABS # 1.21 K/uL (1.2-3.4); MEAN CELL VOLUME 83.8 fL (80-100); MEAN CORPUSCULAR HEMOGLOBIN 28.6 pg (25-34); MEAN CORPUSCULAR HGB CONC 34.1 g/dl (32-36); MEAN PLATELET VOLUME 9.4 fL (7.4-10.4); NEUT % 71.7 %; PLATELET COUNT 283 K/uL (130-400); RED BLOOD COUNT 4.51 M/uL (4.2-5.4); WHITE BLOOD COUNT 7.47 K/uL (4.8-10.8)
[2016-12-17] MEDS: D5W AND 1/2NSS + 40MEQ KCL 1,000 ML IV SCH ×2 (08:51→21:01)
[2016-12-17] MEDS ORDERED: INDOMETHACIN 50 MG SUPP PR ONE ×3 (09:00→12:45)
[2016-12-17 09:14] LABS: BUN/CREATININE RATIO 9.3 (10-20); CALCIUM 9.2 mg/dl (8.5-10.1); CREATININE 0.9 mg/dl (0.60-1.20); POTASSIUM 3.6 mmol/L (3.5-5.1)
[2016-12-17 09:17] LABS: ALB/GLOB RATIO 0.7 (0.9-2)
[2016-12-17] MEDS ORDERED: LIDOCAINE HCL 2% 2 ML VIAL (20MG/ML) ONE (11:32)
[2016-12-17] MEDS ORDERED: PROPOFOL IV EMULSION 10 MG/ML 20 ML VIAL IV ONE (11:32)
[2016-12-17] MEDS ORDERED: ONDANSETRON INJ 2 MG/ML 2 ML VIAL ONE (11:32)
[2016-12-17] MEDS ORDERED: DEXAMETHASONE SOD INJ 4 MG/ML VIAL ONE (11:32)
[2016-12-17] MEDS ORDERED: FENTANYL CITRATE INJ 50 MCG/1 ML 2 ML VIAL ONE (11:33)
[2016-12-17] MEDS ORDERED: MIDAZOLAM HCL 1 MG/ML 2ML VIAL ONE (11:33)
--- NOTE | 2016-12-17 11:49 | Endo History and Physical ---
History & Physical Date of Service: Dec 17, 2016. Chief Complaint: Abdominal pain Referring Physician: Dr. Herrmann History of Present Illness History of abdominal pain elevated LAEs found to have a stone in the CBD. Past Surgical History Hx Cardiac Surgery: No Hx Internal Defibrillator: No Hx Pacemaker: No Hx Abdominal Surgery: No Hx Post-Op Nausea and Vomiting: No Hx Cancer Surgery: No Hx Thoracic Surgery: No Hx Orthopedic: No Hx Urinary Tract Surgery: No Social History Smoking Status: Never Smoker Smokeless Tobacco Use: No Hx Substance Use: No Hx Alcohol Use: No Allergies Coded Allergies: Statins (Unverified Allergy, Unknown, ACHY, 12/15/16) Current Medications Reported Home Medications Medications Dose Route/Sig Max Daily Dose Days Date Category Dose Instructions Toprol-Xl (Metoprolol Succinate) 50 Mg Tabcr 50 Mg PO DAILY 10/11/13 Reported TAKE WITH 100 MG TABLET TO EQUAL 150 MG'S A DAY. Zetia (Ezetimibe) 10 Mg Tab 10 Mg PO DAILY 10/11/13 Reported Dyazide 37.5MG/25MG (Triamterene/HCTZ) Cap 1 Tab PO DAILY 10/11/13 Reported Toprol-Xl (Metoprolol Succinate) 100 Mg Tabcr 100 Mg PO DAILY 10/11/13 Reported TAKE WITH 50 MG TABLET TO EQUAL 150 MG'S DAILY. Glucophage (Metformin Hcl) 500 Mg Tab 1,000 Mg PO QPM 10/11/13 Reported TAKE 2 TABLETS AT DINNER Glucophage (Metformin Hcl) 500 Mg Tab 500 Mg PO DAILY 10/11/13 Reported TAKE ONE TABLET WITH BREAKFAST. Synthroid (Levothyroxine Sodium) 88 Mcg Tab 88 Mcg PO DAILY 10/11/13 Reported Vital Signs Weight (Kilograms): 90.500 Height (Feet): 5 Height (Inches): 1.00 Date Time Temp Pulse Resp B/P Pulse Ox O2 Delivery O2 Flow Rate FiO2 12/17/16 08:02 36.7 117 18 148/86 98 Room Air 12/17/16 08:00 Room Air 12/16/16 23:37 36.5 85 18 119/69 96 Room Air 12/16/16 19:20 Room Air 12/16/16 17:15 36.9 79 18 126/81 91 Room Air Physical Exam General Appearance: no apparent distress Respiratory/Chest: Respiratory effort: no dyspnea, good air movement Cardiovascular: Heart Auscultation: RRR Abdomen: Inspection & Palpation: RUQ tenderness Assessment and Plan ERCP today for evaluation of CBD stones. We have discussed the risks to include bleeding, infection, perforation, pain, pancreatitis and failed cannulation.
[2016-12-17] MEDS ORDERED: LACTATED RINGER'S 1000ML 1,000 ML IV PRN (11:53)
[2016-12-17] MEDS ORDERED: FENTANYL CITRATE INJ 50 MCG/1 ML 2 ML VIAL IV PRN (12:00)
[2016-12-17] MEDS ORDERED: ONDANSETRON INJ 2 MG/ML 2 ML VIAL IV PRN (12:00)
[2016-12-17] MEDS ORDERED: SUCCINYLCHOLINE CHLORIDE 20 MG/ML 10 ML VIAL IV ONE (12:22)
--- NOTE | 2016-12-17 12:41 | GI REPORT ---
Procedure Date: 12/17/2016 12:06 PM Procedure: ERCP Indications: Abdominal pain of suspected biliary origin, Abnormal MRCP, Jaundice Medicines: General Anesthesia Complications: No immediate complications. Estimated blood loss: Minimal. Estimated Blood Loss: Estimated blood loss was minimal. Procedure: Pre-Anesthesia Assessment: - Prior to the procedure, a History and Physical was performed, and patient medications, allergies and sensitivities were reviewed. The patient's tolerance of previous anesthesia was reviewed. - The risks and benefits of the procedure and the sedation options and risks were discussed with the patient. All questions were answered and informed consent was obtained. - Patient identification and proposed procedure were verified prior to the procedure by the physician, the nurse and the radiology orderly. The procedure was verified in the procedure room. - Pre-procedure physical examination revealed no contraindications to sedation. - ASA Grade Assessment: III - A patient with severe systemic disease. - After reviewing the risks and benefits, the patient was deemed in satisfactory condition to undergo the procedure. - The anesthesia plan was to use general anesthesia. - Immediately prior to administration of medications, the patient was re-assessed for adequacy to receive sedatives. - The heart rate, respiratory rate, oxygen saturations, blood pressure, adequacy of pulmonary ventilation, and response to care were monitored throughout the procedure. - The physical status of the patient was re-assessed after the procedure. After obtaining informed consent, the scope was passed under direct vision. Throughout the procedure, the patient's blood pressure, pulse, and oxygen saturations were monitored continuously. The scope was introduced through the mouth, and advanced to the duodenum and used to inject contrast into the bile duct. The ERCP was accomplished without difficulty. The patient tolerated the procedure well. Findings: The timekeeping supervisor film was normal. The esophagus was successfully intubated under direct vision without detailed examination of the pharynx, larynx, and associated structures, and upper GI tract. The upper GI tract was grossly normal. The major papilla was congested. The major papilla was small. The bile duct was deeply cannulated with the short-nosed traction sphincterotome (Omni 35) and 0.035 in MET2 gluidewire during the initial cannulation attempt. Contrast was injected. I personally interpreted the bile duct images. Contrast extended to the hepatic ducts. The main bile duct was diffusely dilated. The largest diameter was 10 mm. The biliary orifice was stenotic. This appeared benign. The lower third of the main bile duct and middle third of the main bile duct contained filling defect(s) thought to be a stone and sludge. Biliary sphincterotomy was made with a monofilament short-tip traction sphincterotome using ERBE electrocautery. There was no post-sphincterotomy bleeding. The biliary tree was swept with an 8.5 mm to 15 mm balloon starting at the bifurcation 4 times. Sludge was swept from the duct. Four pale pigmented stones were removed. No stones remained on occlusion cholangiogram. A moderate amount of pus was swept from the duct. Due to the cholangitis, one 10 Fr by 7 cm biliary stent with a single external flap and a single internal flap was placed 7 cm into the common bile duct. Bile, pus and sludge flowed through the stent. The stent was in good position. The total fluoroscopy exposure time was 1 minute and 4 seconds. The endoscope was withdrawn from the patient. Impression: - The major papilla appeared congested. - The biliary tree was swept and pus and 4 stones were found. - One biliary stent was placed into the common bile duct. Recommendation: - Avoid aspirin and nonsteroidal anti-inflammatory medicines for 1 week. - Clear liquid diet today. - Observe patient's clinical course following today's ERCP with therapeutic intervention. - Repeat ERCP in 6 weeks to remove stent. - Use broad spectrum antibiotics for 2 weeks. Malka Lua D.O. Malka Lua, 12/17/2016 12:40:32 PM This report has been signed electronically. Note Initiated On: 12/17/2016 12:06 PM I attest to the content of the Intraoperative Record and orders documented therein, exceptions below
[2016-12-17] MEDS ORDERED: ESMOLOL HCL 10 MG/ML 10 ML VIAL ONE (12:57)
--- NOTE | 2016-12-17 13:22 | DIAGNOSTIC IMAGING REPORT ---
ERCP BILIARY DUCTAL CLINICAL HISTORY: Choledocholithiasis COMPARISON STUDY: MRCP dated 12/16/2016 FLUOROSCOPY TIME: 65 seconds. 15 fluoroscopic spot images were acquired.. FINDINGS: The ERCP was performed. The common buttock was cannulated and contrast was instilled. It appears a sphincterotomy was performed. A balloon catheter was swept through the duct. A biliary enteric stent was placed. IMPRESSION: ERCP with placement of a biliary enteric stent. Electronically signed by: Jose Juan Jiang M.D. 12/17/2016 1:21 PM Dictated Date/Time: 12/17/2016 1:20 PM
--- NOTE | 2016-12-17 13:34 | Anesthesiology Progress Note ---
Anesthesia Post Op Note Date & Time Dec 17, 2016 at 13:34 Vital Signs Pain Intensity: 1 Vital Signs Past 12 Hours Date Time Temp Pulse Resp B/P Pulse Ox O2 Delivery O2 Flow Rate FiO2 12/17/16 13:25 121/99 12/17/16 13:23 87 12 100 12/17/16 13:23 87 12 12/17/16 13:19 155/90 12/17/16 13:18 95 19 100 12/17/16 13:18 98 19 12/17/16 13:17 36.5 12/17/16 13:14 163/86 12/17/16 13:12 90 12/17/16 13:12 90 16 100 12/17/16 13:09 153/89 12/17/16 13:07 90 16 12/17/16 13:07 90 16 100 12/17/16 13:04 156/86 12/17/16 13:02 103 17 100 12/17/16 13:02 104 17 12/17/16 12:59 144/98 12/17/16 12:57 103 14 12/17/16 12:57 103 14 100 12/17/16 12:55 Nasal Cannula 3 12/17/16 12:54 152/90 12/17/16 12:52 105 15 100 12/17/16 12:52 106 15 12/17/16 12:50 140/102 12/17/16 12:42 36.7 107 14 152/99 100 Mask 10 12/17/16 08:02 36.7 117 18 148/86 98 Room Air 12/17/16 08:00 Room Air Notes Mental Status: alert / awake / arousable, participated in evaluation Pt Amnestic to Procedure: Yes Nausea / Vomiting: adequately controlled Pain: adequately controlled Airway Patency, RR, SpO2: stable & adequate BP & HR: stable & adequate Hydration State: stable & adequate Anesthetic Complications: no major complications apparent Pt doing well.
--- NOTE | 2016-12-17 13:52 | [facility] Post Operative Brief Note ---
Immediate Operative Summary Operative Date Dec 17, 2016. Pre-Operative Diagnosis Common bile duct stones Post-Operative Diagnosis Common bile duct stones, cholangitis Procedure(s) Performed Endoscopic Retrograde Cholangiopancreatogram, with common bile duct stent placement, biliary sphincterotomy and gallstone extraction. Surgeon Dr. Malka Lua Gas Producer Surgeon(s) None Estimated Blood Loss 0 mL Findings 4 common bile duct stones Cholangitis Specimens No pathology specimens per surgeon Anesthesia general Complication(s) None
--- NOTE | 2016-12-17 14:16 | Surgery Progress Note ---
Surgery Progress Note Date of Service Dec 17, 2016. Subjective Post OP Day: HD # 2 + ambulating, + pain controlled, No SOB, No chest pain, No nausea, No vomiting Objective Vital Signs: Date Time Temp Pulse Resp B/P Pulse Ox O2 Delivery O2 Flow Rate FiO2 12/17/16 14:08 91 18 141/87 99 2.0 12/17/16 13:40 Nasal Cannula 2.0 12/17/16 13:40 36.5 92 16 135/83 94 Nasal Cannula 2.0 12/17/16 13:40 Nasal Cannula 12/17/16 13:25 121/99 12/17/16 13:23 87 12 100 12/17/16 13:23 87 12 12/17/16 13:19 155/90 12/17/16 13:18 95 19 100 12/17/16 13:18 98 19 12/17/16 13:17 36.5 12/17/16 13:14 163/86 12/17/16 13:12 90 12/17/16 13:12 90 16 100 12/17/16 13:09 153/89 12/17/16 13:07 90 16 12/17/16 13:07 90 16 100 12/17/16 13:04 156/86 12/17/16 13:02 103 17 100 12/17/16 13:02 104 17 12/17/16 12:59 144/98 12/17/16 12:57 103 14 12/17/16 12:57 103 14 100 12/17/16 12:55 Nasal Cannula 3 12/17/16 12:54 152/90 12/17/16 12:52 105 15 100 12/17/16 12:52 106 15 12/17/16 12:50 140/102 12/17/16 12:42 36.7 107 14 152/99 100 Mask 10 12/17/16 08:02 36.7 117 18 148/86 98 Room Air 12/17/16 08:00 Room Air 12/16/16 23:37 36.5 85 18 119/69 96 Room Air 12/16/16 19:20 Room Air 12/16/16 17:15 36.9 79 18 126/81 91 Room Air General Appearance: WD/WN, no apparent distress, + obese Head: normocephalic, atraumatic Respiratory/Chest: no respiratory distress, no accessory muscle use Abdomen: non tender, non distended, soft Extremities: normal range of motion Laboratory Results: Results Past 24 Hours Test 12/17/16 08:23 Range/Units White Blood Count 7.47 4.8-10.8 K/uL Red Blood Count 4.51 4.2-5.4 M/uL Hemoglobin 12.9 12.0-16.0 g/dL Hematocrit 37.8 37-47 % Mean Corpuscular Volume 83.8 80-100 fL Mean Corpuscular Hemoglobin 28.6 25-34 pg Mean Corpuscular Hemoglobin Concent 34.1 32-36 g/dl Platelet Count 283 130-400 K/uL Mean Platelet Volume 9.4 7.4-10.4 fL Neutrophils (%) (Auto) 71.7 % Lymphocytes (%) (Auto) 16.2 % Monocytes (%) (Auto) 8.0 % Eosinophils (%) (Auto) 3.9 % Basophils (%) (Auto) 0.1 % Neutrophils # (Auto) 5.35 1.4-6.5 K/uL Lymphocytes # (Auto) 1.21 1.2-3.4 K/uL Monocytes # (Auto) 0.60 0.11-0.59 K/uL Eosinophils # (Auto) 0.29 0-0.5 K/uL Basophils # (Auto) 0.01 0-0.2 K/uL RDW Standard Deviation 40.9 36.4-46.3 fL RDW Coefficient of Variation 13.5 11.5-14.5 % Immature Granulocyte % (Auto) 0.1 % Immature Granulocyte # (Auto) 0.01 0.00-0.02 K/uL Sodium Level 140 136-145 mmol/L Potassium Level 3.6 3.5-5.1 mmol/L Chloride Level 106 98-107 mmol/L Carbon Dioxide Level 26 21-32 mmol/L Anion Gap 8.0 3-11 mmol/L Blood Urea Nitrogen 8 7-18 mg/dl Creatinine 0.90 0.60-1.20 mg/dl Est Creatinine Clear Calc Drug Dose 67.2 ml/min Estimated GFR () 80.0 Estimated GFR (Non- 69.0 BUN/Creatinine Ratio 9.3 10-20 Random Glucose 159 70-99 mg/dl Calcium Level 9.2 8.5-10.1 mg/dl Total Bilirubin 3.8 0.2-1 mg/dl Aspartate Amino Transf (AST/SGOT) 284 15-37 U/L Alanine Aminotransferase (ALT/SGPT) 298 12-78 U/L Alkaline Phosphatase 265 45-117 U/L Total Protein 6.5 6.4-8.2 gm/dl Albumin 2.6 3.4-5.0 gm/dl Globulin 3.9 2.5-4.0 gm/dl Albumin/Globulin Ratio 0.7 0.9-2 Lipase 298 73-393 U/L Assessment & Plan Acute Cholecystitis with Choledocholithiasis and Acute Pancreatitis - Leukocytosis resolved - Abdominal pain controlled with Dilaudid - Lipase normalized with IV fluids hydration - LFTs increased, bilirubin stable at 3.8 - MRCP showing intra and extrahepatic biliary ductal dilatation (CBD 9.5 mm ) and a 5 mm filling defect within the distal common bile duct, consistent with a calculus. Plan: Continue IV fluids, IV antibiotics and pain management Patient had ERCP today with biliary stent placement Will plan for Laparoscopic cholecystectomy on Thursday May have clear liquids Will continue to monitor Dr. Herrmann has seen and examined patient, agrees with assessment and plan.
[2016-12-17] MEDS ORDERED: NURSING VERBAL MED ORDER ONE (19:45)
[2016-12-17] MEDS ORDERED: GLUCOSE 10 TABS/TUBE PO PRN (20:00)
[2016-12-17] MEDS ORDERED: GLUCAGON FOR INJ 1 MG VIAL SQ PRN (20:00)
[2016-12-17] MEDS ORDERED: GLUCOSE 40% GEL 15 GM TUBE PO PRN (20:00)
[2016-12-17] MEDS ORDERED: DEXTROSE 50% 50 ML SYR IV PRN (20:00)
[2016-12-17] MEDS: INSULIN ASPART 100 UNITS/ML 3 ML PEN SC SCH (21:00)
[2016-12-17] MEDS: CIPROFLOXACIN 500 MG TAB PO SCH (21:01)
[2016-12-17] MEDS: METOPROLOL SUCC 25MG EXT REL TAB PO SCH (21:01)
[2016-12-17] MEDS: OXYCODONE/ACETAMINOPHEN 5-325 TAB PO PRN (23:37)
[2016-12-18 04:13] VITALS: BP 146/77; PULSE 81; TEMP 36.7; O2SAT 95
[2016-12-18] MEDS: D5W AND 1/2NSS + 40MEQ KCL 1,000 ML IV SCH ×2 (06:11→15:31)
--- NOTE | 2016-12-18 06:43 | Surgery Progress Note ---
Surgery Progress Note Date of Service Dec 18, 2016. Subjective + feeling well S/P ERCP, pt is doing beter, no abdominal pain, no fever, Objective Vital Signs: Date Time Temp Pulse Resp B/P Pulse Ox O2 Delivery O2 Flow Rate FiO2 12/18/16 04:13 36.7 81 14 146/77 95 Room Air 12/17/16 23:30 Room Air 12/17/16 22:39 37.1 94 17 157/84 93 Room Air 12/17/16 19:31 37.0 113 18 163/94 91 Room Air 12/17/16 16:48 37.2 105 18 152/90 92 Room Air 12/17/16 15:40 37.1 96 18 148/86 91 Room Air 12/17/16 15:30 Room Air 12/17/16 14:40 36.6 91 18 143/81 96 Room Air 12/17/16 14:08 91 18 141/87 99 2.0 12/17/16 13:40 Nasal Cannula 2.0 12/17/16 13:40 36.5 92 16 135/83 94 Nasal Cannula 2.0 12/17/16 13:40 Nasal Cannula 12/17/16 13:25 121/99 12/17/16 13:23 87 12 100 12/17/16 13:23 87 12 12/17/16 13:19 155/90 12/17/16 13:18 95 19 100 12/17/16 13:18 98 19 12/17/16 13:17 36.5 12/17/16 13:14 163/86 12/17/16 13:12 90 12/17/16 13:12 90 16 100 12/17/16 13:09 153/89 12/17/16 13:07 90 16 12/17/16 13:07 90 16 100 12/17/16 13:04 156/86 12/17/16 13:02 103 17 100 12/17/16 13:02 104 17 12/17/16 12:59 144/98 12/17/16 12:57 103 14 12/17/16 12:57 103 14 100 12/17/16 12:55 Nasal Cannula 3 12/17/16 12:54 152/90 12/17/16 12:52 105 15 100 12/17/16 12:52 106 15 12/17/16 12:50 140/102 12/17/16 12:42 36.7 107 14 152/99 100 Mask 10 12/17/16 08:02 36.7 117 18 148/86 98 Room Air 12/17/16 08:00 Room Air General Appearance: WD/WN Head: normocephalic Neck: supple, no JVD Respiratory/Chest: chest non-tender, lungs clear Cardiovascular: regular rate, rhythm, no edema, no gallop, no JVD Abdomen: normal bowel sounds, non tender, non distended, soft Laboratory Results: Results Past 24 Hours Test 12/17/16 08:23 12/17/16 20:49 Range/Units White Blood Count 7.47 4.8-10.8 K/uL Red Blood Count 4.51 4.2-5.4 M/uL Hemoglobin 12.9 12.0-16.0 g/dL Hematocrit 37.8 37-47 % Mean Corpuscular Volume 83.8 80-100 fL Mean Corpuscular Hemoglobin 28.6 25-34 pg Mean Corpuscular Hemoglobin Concent 34.1 32-36 g/dl Platelet Count 283 130-400 K/uL Mean Platelet Volume 9.4 7.4-10.4 fL Neutrophils (%) (Auto) 71.7 % Lymphocytes (%) (Auto) 16.2 % Monocytes (%) (Auto) 8.0 % Eosinophils (%) (Auto) 3.9 % Basophils (%) (Auto) 0.1 % Neutrophils # (Auto) 5.35 1.4-6.5 K/uL Lymphocytes # (Auto) 1.21 1.2-3.4 K/uL Monocytes # (Auto) 0.60 0.11-0.59 K/uL Eosinophils # (Auto) 0.29 0-0.5 K/uL Basophils # (Auto) 0.01 0-0.2 K/uL RDW Standard Deviation 40.9 36.4-46.3 fL RDW Coefficient of Variation 13.5 11.5-14.5 % Immature Granulocyte % (Auto) 0.1 % Immature Granulocyte # (Auto) 0.01 0.00-0.02 K/uL Sodium Level 140 136-145 mmol/L Potassium Level 3.6 3.5-5.1 mmol/L Chloride Level 106 98-107 mmol/L Carbon Dioxide Level 26 21-32 mmol/L Anion Gap 8.0 3-11 mmol/L Blood Urea Nitrogen 8 7-18 mg/dl Creatinine 0.90 0.60-1.20 mg/dl Est Creatinine Clear Calc Drug Dose 67.2 ml/min Estimated GFR () 80.0 Estimated GFR (Non- 69.0 BUN/Creatinine Ratio 9.3 10-20 Random Glucose 159 70-99 mg/dl Calcium Level 9.2 8.5-10.1 mg/dl Total Bilirubin 3.8 0.2-1 mg/dl Aspartate Amino Transf (AST/SGOT) 284 15-37 U/L Alanine Aminotransferase (ALT/SGPT) 298 12-78 U/L Alkaline Phosphatase 265 45-117 U/L Total Protein 6.5 6.4-8.2 gm/dl Albumin 2.6 3.4-5.0 gm/dl Globulin 3.9 2.5-4.0 gm/dl Albumin/Globulin Ratio 0.7 0.9-2 Lipase 298 73-393 U/L Bedside Glucose 144 70-90 mg/dl Assessment & Plan S/P ERCP, cholelithiasis Pt will have laparoscopic cholecystectomy ,possible open, or cholangiogram tomorrow, D/W benefits, risks and alternatives of the procedure, the risks- infection, bleeding, injury CBD, bowel, incisional hernia, , pt understood , she agrees with the plan, I answered all questions,
[2016-12-18 07:33] VITALS: BP 150/77; PULSE 79; TEMP 36.8; O2SAT 95
[2016-12-18] MEDS: CIPROFLOXACIN 500 MG TAB PO SCH ×2 (09:08→20:31)
[2016-12-18] MEDS: METOPROLOL SUCC 25MG EXT REL TAB PO SCH (09:08)
[2016-12-18] MEDS: INSULIN ASPART 100 UNITS/ML 3 ML PEN SC SCH ×4 (09:08→23:03)
--- NOTE | 2016-12-18 10:08 | Gastroenterology Progress Note ---
Progress Note Date of Service: Dec 18, 2016 Subjective Pt evaluation today including: conversation w/ patient, physical exam, chart review, lab review, review of inpatient medication list Pt feels well, denies any abd pain, n/v, passing flatus and tolerated [place] diet this AM. LFTs trending down, lipase normalized to 158 Review of Systems Constitutional: No chills, No fever Respiratory: No cough, No shortness of breath Cardiac: No chest pain Abdomen: No nausea, No pain, No vomiting Medications Current Inpatient Medications Medications (Trade) Dose Ordered Sig/Joe Route Start Time Stop Time Status Last Admin Dose Admin Ioversol 100 ml 100 ml UD PRN IV 12/15/16 20:15 12/19/16 20:14 Potassium Chloride/Dextrose/ Sod Cl (D5W And 1/2nss + 40meq KCl) 1,000 ml @ 100 mls/hr Q10H IV 12/16/16 04:00 01/15/17 03:59 12/18/16 06:11 100 MLS/HR Oxycodone/ Acetaminophen (Percocet 5-325mg Tab) 1 tab Q4H PRN PO 12/16/16 00:45 12/30/16 00:44 12/17/16 23:37 1 TAB Hydromorphone HCl (Dilaudid Inj) 1 mg Q3H PRN IV 12/16/16 00:45 12/30/16 00:44 12/16/16 07:45 1 MG Miscellaneous (Iv Fluids Completed) 1 ea PRN PRN N/A 12/16/16 02:30 12/16/17 02:29 Ondansetron HCl 4 mg 4 mg Q8H PRN IV 12/16/16 04:30 01/15/17 04:29 12/16/16 12:07 4 MG Promethazine HCl/ Sodium Chloride (Phenergan Inj/ Nss 50ml) 50.5 ml @ 202 mls/hr Q6H PRN IV 12/16/16 18:00 01/15/17 17:59 12/16/16 17:57 202 MLS/HR Ciprofloxacin (Cipro Tab) 500 mg BID PO 12/17/16 21:00 12/31/16 20:59 12/18/16 09:08 500 MG Insulin Aspart (novoLOG ASPART) SLIDING SCALE ACHS SC 12/17/16 21:00 3/31/17 20:59 Glucose (Glucose 40% Gel) 15-30 GRAMS 15 GRAMS... UD PRN PO 12/17/16 20:00 01/16/17 19:59 Glucose (Glucose Chew Tab) 4-8 Tablets 4 Tabl... UD PRN PO 12/17/16 20:00 01/16/17 19:59 Dextrose (Dextrose 50% 50ML Syringe) 25-50ML OF 50% DW IV FOR... UD PRN IV 12/17/16 20:00 01/16/17 19:59 Glucagon (Glucagon Inj) 1 mg UD PRN SQ 12/17/16 20:00 01/16/17 19:59 Metoprolol Succinate (Toprol Xl Tab) 25 mg BID PO 12/17/16 21:00 01/16/17 20:59 12/18/16 09:08 25 MG Objective Vital Signs Date Time Temp Pulse Resp B/P Pulse Ox O2 Delivery O2 Flow Rate FiO2 12/18/16 07:33 36.8 79 20 150/77 95 Room Air 12/18/16 04:13 36.7 81 14 146/77 95 Room Air 12/17/16 23:30 Room Air 12/17/16 22:39 37.1 94 17 157/84 93 Room Air 12/17/16 19:31 37.0 113 18 163/94 91 Room Air 12/17/16 16:48 37.2 105 18 152/90 92 Room Air 12/17/16 15:40 37.1 96 18 148/86 91 Room Air 12/17/16 15:30 Room Air 12/17/16 14:40 36.6 91 18 143/81 96 Room Air 12/17/16 14:08 91 18 141/87 99 2.0 12/17/16 13:40 Nasal Cannula 2.0 12/17/16 13:40 36.5 92 16 135/83 94 Nasal Cannula 2.0 12/17/16 13:40 Nasal Cannula 12/17/16 13:25 121/99 12/17/16 13:23 87 12 100 12/17/16 13:23 87 12 12/17/16 13:19 155/90 12/17/16 13:18 95 19 100 12/17/16 13:18 98 19 12/17/16 13:17 36.5 12/17/16 13:14 163/86 12/17/16 13:12 90 12/17/16 13:12 90 16 100 12/17/16 13:09 153/89 12/17/16 13:07 90 16 12/17/16 13:07 90 16 100 12/17/16 13:04 156/86 12/17/16 13:02 103 17 100 12/17/16 13:02 104 17 12/17/16 12:59 144/98 12/17/16 12:57 103 14 12/17/16 12:57 103 14 100 12/17/16 12:55 Nasal Cannula 3 12/17/16 12:54 152/90 12/17/16 12:52 105 15 100 12/17/16 12:52 106 15 12/17/16 12:50 140/102 12/17/16 12:42 36.7 107 14 152/99 100 Mask 10 Physical Exam General Appearance: WD/WN, no apparent distress, + obese Eyes: normal inspection, PERRL, EOMI Neck: supple, no JVD, trachea midline Respiratory/Chest: normal breath sounds, no respiratory distress, no accessory muscle use Cardiovascular: regular rate, rhythm, no gallop, no murmur Abdomen: normal bowel sounds, non tender, soft Extremities: normal inspection, no pedal edema, no calf tenderness Neurologic/Psych: alert, normal mood/affect, oriented x 3 Skin: normal color, no jaundice, no rash Laboratory Results Last 24 Hours Test 12/17/16 20:49 12/18/16 07:40 12/18/16 08:58 Bedside Glucose 144 mg/dl 144 mg/dl Total Bilirubin 1.1 mg/dl Direct Bilirubin 0.6 mg/dl Aspartate Amino Transf (AST/SGOT) 139 U/L Alanine Aminotransferase (ALT/SGPT) 260 U/L Alkaline Phosphatase 254 U/L Total Protein 6.3 gm/dl Albumin 2.4 gm/dl Lipase 158 U/L Assessment and Plan Pt is a 61 y/o female admitted for gallstone pancreatitis - noted elevated LFTs , Lipase, MRCP w 9mm CBD and filling defect in distal CBD. Underwent ERCP w biliary stone removal on 12/17/16, biliary stent placement. Pus was noted on bile duct. She did well overnight afebrile, denies any abd pain, n/ v this AM. Tolerated breakfast. LFTs trending down, lipase normalized. PLANS: - Diet advancement per surgery. - Per Dr. Montez goddard vs open cholecystectomy on 12/19 - Monitor LFTs - Cipro 500mg BID x 2 week; avoid NSAIDs and ASA x 1 week post sphincterectomy - Repeat ERCP in 6 week's time to remove biliary stent - GI will watch peripherally; call if new questions or concerns arise. I saw and evaluated the patient. She underwent an ERCP for gallstone extraction yesterday. A biliary stent was placed due to underlying cholangitis. Recommendations Avoid nonsteroidals for a total of 1 week Complete a two-week course of antibiotics due to underlying cholangitis ERCP in 6-8 weeks
[2016-12-18 10:57] VITALS: BP 159/80; PULSE 80; TEMP 36.5; O2SAT 99
[2016-12-18] MEDS ORDERED: NURSING VERBAL MED ORDER ONE (11:30)
[2016-12-18] MEDS ORDERED: METOPROLOL SUCC 25MG EXT REL TAB PO ONE (12:00)
--- NOTE | 2016-12-18 14:03 | Anesthesiology Progress Note ---
Pre-OP Anesthesia Assessment Date of Note Dec 18, 2016. Review patient information reviewed, chart reviewed, labs reviewed, acceptable for surgery Notes I saw this pt for lap ryan by Dr. Herrmann tomorrow. She was admitted w/ gallstone pancreatitis and underwent uneventful ERCP and biliary stent placement yesterday on 12/17 (grade 2 view w/ Mac 3). Lipase has since normalized and LFTs are coming down. PMH includes obesity, HTN, HLD, DM2 on oral agents, hypothyroidism. Afebrile w/ stable vitals. I consented the pt for GA. She'll be NPO after midnight except meds w/ sips of water.
[2016-12-18 15:38] VITALS: BP 144/81; PULSE 79; TEMP 36.9; O2SAT 94
[2016-12-18] MEDS: METOPROLOL SUCC 50MG EXT REL TAB PO SCH (20:32)
[2016-12-18 23:23] VITALS: BP 160/82; PULSE 81; TEMP 37.1; O2SAT 96
[2016-12-19] VITALS (10 sets, daily range): BP systolic 134–162; BP diastolic 59–90; PULSE 70–98; TEMP 36.1–36.9; O2SAT 96–100
[2016-12-19] MEDS: D5W AND 1/2NSS + 40MEQ KCL 1,000 ML IV SCH (01:05)
[2016-12-19] MEDS ORDERED: NURSING VERBAL MED ORDER ONE ×2 (01:15→12:15)
[2016-12-19] MEDS ORDERED: CEFAZOLIN IV 2,000 MG/60 ML D5W IV SCH (06:00)
[2016-12-19] MEDS ORDERED: INSULIN ASPART 100 UNITS/ML 3 ML PEN SC SCH (06:00)
[2016-12-19] MEDS: METOPROLOL SUCC 50MG EXT REL TAB PO SCH ×2 (06:00→21:13)
[2016-12-19] MEDS ORDERED: DEXAMETHASONE SOD INJ 4 MG/ML VIAL ONE (06:35)
[2016-12-19] MEDS ORDERED: FENTANYL CITRATE INJ 50 MCG/1 ML 2 ML VIAL ONE ×2 (06:35→09:18)
[2016-12-19] MEDS ORDERED: ONDANSETRON INJ 2 MG/ML 2 ML VIAL ONE ×2 (06:35→07:48)
[2016-12-19] MEDS ORDERED: GLYCOPYRROLATE INJ 0.2 MG/ML VIAL ONE ×2 (06:35→10:34)
[2016-12-19] MEDS ORDERED: NEOSTIGMINE METHYLSULFATE 5 MG/5 ML SYR ONE (06:35)
[2016-12-19] MEDS ORDERED: MIDAZOLAM HCL 1 MG/ML 2ML VIAL ONE (06:35)
[2016-12-19] MEDS ORDERED: PROPOFOL IV EMULSION 10 MG/ML 20 ML VIAL IV ONE ×2 (06:35→09:16)
[2016-12-19] MEDS ORDERED: ROCURONIUM BROMIDE 10 MG/ML 5 ML VIAL ONE (06:35)
[2016-12-19] MEDS ORDERED: LIDOCAINE HCL 2% 2 ML VIAL (20MG/ML) ONE (06:35)
--- NOTE | 2016-12-19 06:50 | History & Physical Bridge Note ---
H&P Re-Evaluation Bridge Note: I have examined the patient, reviewed the History & Physical and in the interval since the performance of the History & Physical I have noted the following changes of clinical significance: No changes noted
[2016-12-19] MEDS ORDERED: ONDANSETRON INJ 2 MG/ML 2 ML VIAL IV PRN (07:00)
[2016-12-19] MEDS ORDERED: ATROPINE SULFATE 0.1 MG/ML 5ML SYR IV PRN (07:00)
[2016-12-19] MEDS ORDERED: LABETALOL HCL IV 5 MG/ML 20ML IV PRN (07:00)
[2016-12-19] MEDS ORDERED: KETOROLAC TROMETHAMINE 30 MG/ML VIAL IV. PRN (07:00)
[2016-12-19] MEDS ORDERED: PROMETHAZINE HCL INJ 12.5 MG in SODIUM CHLORIDE 0.9% 50ML 50 ML IV PRN (07:00)
[2016-12-19] MEDS ORDERED: LIDOCAINE HCL 1% 20 ML VIAL ONE (07:03)
[2016-12-19] MEDS ORDERED: BUPIVACAINE 0.5 % 5 MG/1 ML MPF 30ML VIAL ONE (07:04)
[2016-12-19] MEDS ORDERED: BACITRACIN OINT 15 GM TUBE ONE (07:04)
[2016-12-19] MEDS ORDERED: EpHEDrine SULFATE 50MG/5ML SYR ONE (07:51)
[2016-12-19] MEDS: CIPROFLOXACIN 500 MG TAB PO SCH ×2 (09:00→21:12)
--- NOTE | 2016-12-19 10:20 | [facility] Post Operative Brief Note ---
Immediate Operative Summary Operative Date Dec 19, 2016. Pre-Operative Diagnosis Acute cholecystitis Post-Operative Diagnosis Same Procedure(s) Performed Laparoscopic Subtotal Cholecystectomy Surgeon Dr Herrmann Laborer Rags Surgeon(s) Dee Jones PA-C Estimated Blood Loss 30ml Findings severe acute cholecystis, cholelithiasis Fluids (cc crystalloids) 1000ml Specimens A. Gallbladder Drains DERRICK x1 Anesthesia General Complication(s) None Disposition Recovery Room / PACU
[2016-12-19] MEDS: HYDROmorphone INJ 2 MG/ML SYR/VIAL IV PRN ×4 (10:40→10:55)
--- NOTE | 2016-12-19 11:04 | OPERATIVE REPORT ---
DATE OF OPERATION: 12/19/2016 PREOPERATIVE DIAGNOSIS: Post stat endoscopic retrograde cholangiopancreatography. POSTOPERATIVE DIAGNOSIS: Same. OPERATION: Laparoscopic subtotal cholecystectomy, DERRICK drainage x1. SURGEON: Dr. Ty Herrmann. ANESTHESIA: General. ESTIMATED BLOOD LOSS: About 30 mL. INTRAVENOUS FLUIDS: 1 liter. FINDINGS: Significant and severe acute cholecystitis with cholelithiasis. COMPLICATIONS: None. INDICATIONS FOR THE PROCEDURE: This is a 61-year-old female who presented to the ED with abdominal pain. The patient was admitted to hospital for acute cholecystitis, cholelithiasis with common bile duct stone and the patient had an ERCP by the GI doctor 2 days ago and patient doing fine; however, patient still has acute cholecystitis, cholelithiasis and patient required total laparoscopic cholecystectomy, possible open, possible cholangiogram. I did talk to the patient about the benefit and risk, alternate procedure. I indicated the risks may include but not limited such as bleeding, infection, injury to common bile duct, injury to bowel, myocardial infarction, DVT, stroke, incisional hernia, bile leak, even . The patient understands. She signed informed consent and I answered all questions. DETAILS OF PROCEDURE: We brought the patient to the OR and put the patient in the supine position. The patient received SCD on bilateral legs to prevent DVT. Also, the patient received 2 grams Ancef IV for prophylactic antibiotic. The patient received general anesthesia without difficulty. The abdomen was prepped and draped in routine sterile fashion. After a timeout, I injected local anesthesia by using 1% lidocaine mixed with 0.5% Marcaine just above the umbilical. Then I made a small incision just above umbilical, opened fascia and opened peritoneum under direct vision. I put a Ev trocar in, connected to CO2 to create pneumoperitoneum. Flow rate 6 liter per minute. Pressure not more than 14 mmHg. Once we got a nice pneumoperitoneum, we put a 10 mm camera in and looked around the abdomen shows no more findings on the stomach, small bowel, large bowel, liver; however, the patient had significant inflammation gallbladder. The gallbladder wall significant inflammation with edema. Then we put another 3.5 mm trocar on the right upper quadrant and we used a grasper to hold the base of the gallbladder; however, based on the gallbladder significant distended we tried to use the needle to decompress the gallbladder, nothing came out because the gallbladder filled full of stones. We tried to identify the cystic duct, it was very difficult because the inflammation and not very clear the cystic duct. At this moment I decided to do the subtotal cholecystectomy used the top down technique, then we used Bovie to take down the gallbladder from top near close the cystic duct. I used the Endoloop close near the cystic duct and then I used harmonic transection the gallbladder near the cystic duct and hemostasis obtained. No bile leak. Then we found the gallbladder had multiple larger stones. Then we used the catch bag to catch the gallbladder and stone pulled out. Then we reinserted Ev trocar in to create pneumoperitoneum again to look around the abdomen on the liver bed and no bile leak and the Endoloop stayed securely, no bile leak from the remaining small portion of the gallbladder. I did remove almost 95% of the gallbladder. This was a safety concern. There were very very tiny small piece of gallbladder to the wall of the common bile duct. Rechecked and no bile leak, no active bleeding. I decided to put 7 mm DERRICK drainage and used 2-0 Vicryl to fix the skin on the DERRICK drainage and then we removed all the trocars under direct vision. No active bleeding. Then the pneumoperitoneum released. Closed umbilical fascial layer by using #1 Vicryl [id number] x2, closed subcutaneous layer by using 2-0 Vicryl, closed the skin by using 4-0 Vicryl and another 3.5 mm trocar site closed skin only by using 4-0 Vicryl. Another two 5 mm trocar site closed skin by using 2-0 Vicryl. We put the dressing on. The patient tolerated the procedure well. All the instrument, needle and sponge count correct x2 at the end of case. The patient transferred to recovery room in stable condition. I attest to the content of the Intraoperative Record and any orders documented therein. Any exceptions are noted below. BLAKE
[2016-12-19] MEDS: SODIUM CHLOR 0.45% + 20MEQ KCL 1,000 ML IV SCH (11:33)
[2016-12-19] MEDS ORDERED: OXYC-57 PO (11:40)
--- NOTE | 2016-12-19 11:42 | Discharge Instructions ---
Discharge Instructions Admission Reason for Admission: Acute Cholecystitis Discharge Discharge Diagnosis / Problem: S/p laparoscopic cholecystectomy and ERCP Discharge Goals Goal(s): Decrease discomfort Activity Recommendations Activity Limitations: as noted below No heavy lifting over 20 pounds for 2 weeks Walking is encouraged NO strenuous activity No driving while taking narcotic pain medications. . Instructions / Follow-Up Instructions / Follow-Up Remove dressings in 3 days and then you may shower sponge bath in the meantime Follow-up in surgical office in 1 week for Drain removal Please call office at [phone] to make an appointment Record drainage each day If you develop abdominal pain, nausea, vomiting, incisional pain/redness/ drainage please call office or go to emergency room if symptoms are severe for further evaluation Current Hospital Diet Patient's current hospital diet: Full Liquid Diet Discharge Diet Recommended Diet: Regular Diet Procedures Procedures Performed: Laparoscopic Subtotal Cholecystectomy Pending Studies Studies pending at discharge: no Laboratory Results Hemoglobin A1c Test 11/28/16 08:50 Range/Units Estimated Average Glucose 137 mg/dl Hemoglobin A1c 6.4 H 4.5-5.6 % Lipid Panel Test 11/28/16 08:50 Range/Units Triglycerides Level 125 0-150 mg/dl Cholesterol Level 194 0-200 mg/dl HDL Cholesterol 45 mg/dl Cholesterol/HDL Ratio 4.3 LDL Cholesterol, Calculated 124 mg/dl Medical Emergencies . Who to Call and When: Medical Emergencies: If at any time you feel your situation is an emergency, please call 911 immediately. . Non-Emergent Contact Non-Emergency issues call your: Primary Care Provider, Surgeon Call Non-Emergent contact if: temperature is above 101.5, your pain is not controlled, your pain is worsening, wound has increased drainage, wound has increased redness, wound has increased pain . "Provider Documentation" section prepared by Dee Jones. VTE Core Measure Inpt VTE Proph given/why not?: SCD's [place] Drug Monitoring Program Search Results: patient reviewed within database, no issues identified
--- NOTE | 2016-12-19 14:44 | Anesthesiology Progress Note ---
Anesthesia Post Op Note Date & Time Dec 19, 2016 at 14:44 Vital Signs Pain Intensity: 0.0 Vital Signs Past 12 Hours Date Time Temp Pulse Resp B/P Pulse Ox O2 Delivery O2 Flow Rate FiO2 12/19/16 13:32 36.6 98 16 157/88 99 Nasal Cannula 3.0 12/19/16 12:13 76 16 134/78 97 2.0 12/19/16 11:57 36.4 77 17 157/82 97 Nasal Cannula 2.0 12/19/16 11:30 96 Nasal Cannula 3.0 12/19/16 11:30 36.7 86 16 155/90 96 Nasal Cannula 3.0 12/19/16 11:30 96 Nasal Cannula 3.0 12/19/16 11:06 36.5 12/19/16 11:02 77 16 96 12/19/16 11:02 76 16 12/19/16 11:00 153/89 12/19/16 10:57 74 15 96 12/19/16 10:57 75 15 12/19/16 10:56 150/85 12/19/16 10:52 85 14 12/19/16 10:52 85 14 97 12/19/16 10:51 165/91 12/19/16 10:47 77 13 99 12/19/16 10:47 77 13 12/19/16 10:46 166/93 12/19/16 10:45 Nasal Cannula 3 12/19/16 10:42 83 14 99 12/19/16 10:42 83 14 12/19/16 10:40 168/110 12/19/16 10:37 83 13 12/19/16 10:37 83 13 99 12/19/16 10:35 169/97 12/19/16 10:32 81 15 99 12/19/16 10:32 81 15 12/19/16 10:30 157/83 12/19/16 10:29 167/98 12/19/16 10:22 36.2 83 16 162/94 100 Mask 10 12/19/16 06:34 36.9 75 18 151/95 96 Room Air 12/19/16 06:03 36.8 71 16 162/85 97 Room Air Notes Mental Status: alert / awake / arousable, participated in evaluation Pt Amnestic to Procedure: Yes Nausea / Vomiting: adequately controlled Pain: adequately controlled Airway Patency, RR, SpO2: stable & adequate BP & HR: stable & adequate Hydration State: stable & adequate Anesthetic Complications: no major complications apparent
[2016-12-19] MEDS: INSULIN ASPART 100 UNITS/ML 3 ML PEN SC SCH ×2 (17:15→21:00)
[2016-12-19] MEDS: OXYCODONE/ACETAMINOPHEN 5-325 TAB PO PRN ×2 (17:29→22:04)
[2016-12-20 03:46] VITALS: BP 149/84; PULSE 67; TEMP 36.7; O2SAT 97
[2016-12-20] MEDS: SODIUM CHLOR 0.45% + 20MEQ KCL 1,000 ML IV SCH (06:16)
[2016-12-20 07:09] LABS: BASO % 0.3 %; BASO ABS # 0.02 K/uL (0-0.2); COMPLETE YES; EOS % 1.7 %; IG% 0.3 %; LYMPH % 33.1 %; LYMPH ABS # 2.35 K/uL (1.2-3.4); MEAN CELL VOLUME 87.6 fL (80-100); MEAN CORPUSCULAR HEMOGLOBIN 29.2 pg (25-34); MEAN CORPUSCULAR HGB CONC 33.3 g/dl (32-36); MEAN PLATELET VOLUME 9.4 fL (7.4-10.4); MONO % 7.2 %; NEUT % 57.4 %; PLATELET COUNT 271 K/uL (130-400); RED BLOOD COUNT 4.11 M/uL (4.2-5.4)
[2016-12-20 07:18] LABS: BUN/CREATININE RATIO 13.3 (10-20); CALCIUM 8.3 mg/dl (8.5-10.1); CREATININE 0.75 mg/dl (0.60-1.20); POTASSIUM 3.7 mmol/L (3.5-5.1)
[2016-12-20 07:21] LABS: ALB/GLOB RATIO 0.7 (0.9-2)
[2016-12-20 07:45] VITALS: BP 150/77; PULSE 70; TEMP 36.5; O2SAT 93
[2016-12-20] MEDS: INSULIN ASPART 100 UNITS/ML 3 ML PEN SC SCH ×2 (08:00→11:48)
--- NOTE | 2016-12-20 09:38 | Surgery Progress Note ---
Surgery Progress Note Date of Service Dec 20, 2016. Subjective Post OP Day: 1 + feeling well S/P lparoscopic subtotal cholecystectomy, POD 1 pt is doing fine, no C/O, good control incisional pain, she tolerated the diet, DERRICK 25ml, I informed pt about or finding and the procedure pt had, pt understood , I answered all questions, pt wants to go home. Objective Vital Signs: Date Time Temp Pulse Resp B/P Pulse Ox O2 Delivery O2 Flow Rate FiO2 12/20/16 07:45 36.5 70 18 150/77 93 Room Air 12/20/16 07:28 Room Air 12/20/16 03:46 36.7 67 18 149/84 97 Room Air 12/19/16 23:55 Room Air 12/19/16 23:20 36.8 70 16 159/59 96 Nasal Cannula 2.0 12/19/16 21:14 73 148/84 12/19/16 19:11 36.9 77 17 159/82 100 Nasal Cannula 3.0 12/19/16 16:35 Nasal Cannula 3.0 12/19/16 15:45 36.6 70 18 146/80 97 Nasal Cannula 3.0 12/19/16 14:30 36.1 84 18 152/79 97 Nasal Cannula 2.0 12/19/16 13:32 36.6 98 16 157/88 99 Nasal Cannula 3.0 12/19/16 12:13 76 16 134/78 97 2.0 12/19/16 11:57 36.4 77 17 157/82 97 Nasal Cannula 2.0 12/19/16 11:30 96 Nasal Cannula 3.0 12/19/16 11:30 36.7 86 16 155/90 96 Nasal Cannula 3.0 12/19/16 11:30 96 Nasal Cannula 3.0 12/19/16 11:06 36.5 12/19/16 11:02 77 16 96 12/19/16 11:02 76 16 12/19/16 11:00 153/89 12/19/16 10:57 74 15 96 12/19/16 10:57 75 15 12/19/16 10:56 150/85 12/19/16 10:52 85 14 12/19/16 10:52 85 14 97 12/19/16 10:51 165/91 12/19/16 10:47 77 13 99 12/19/16 10:47 77 13 12/19/16 10:46 166/93 12/19/16 10:45 Nasal Cannula 3 12/19/16 10:42 83 14 99 12/19/16 10:42 83 14 12/19/16 10:40 168/110 12/19/16 10:37 83 13 12/19/16 10:37 83 13 99 12/19/16 10:35 169/97 12/19/16 10:32 81 15 99 12/19/16 10:32 81 15 12/19/16 10:30 157/83 12/19/16 10:29 167/98 12/19/16 10:22 36.2 83 16 162/94 100 Mask 10 Physical Exam: DERRICK drainage (25ml) General Appearance: WD/WN Head: normocephalic Neck: supple, no JVD Respiratory/Chest: chest non-tender, lungs clear, normal breath sounds Cardiovascular: regular rate, rhythm, no edema, no gallop, no JVD Abdomen: normal bowel sounds, non tender, non distended, soft Incision(s): clean, dry, intact Extremities: normal range of motion, non-tender, normal inspection Laboratory Results: Results Past 24 Hours Test 12/19/16 10:28 12/19/16 11:54 12/19/16 17:18 12/19/16 20:51 Range/Units Bedside Glucose 126 125 113 100 70-90 mg/dl Test 12/20/16 06:30 12/20/16 08:49 Range/Units White Blood Count 7.10 4.8-10.8 K/uL Red Blood Count 4.11 4.2-5.4 M/uL Hemoglobin 12.0 12.0-16.0 g/dL Hematocrit 36.0 37-47 % Mean Corpuscular Volume 87.6 80-100 fL Mean Corpuscular Hemoglobin 29.2 25-34 pg Mean Corpuscular Hemoglobin Concent 33.3 32-36 g/dl Platelet Count 271 130-400 K/uL Mean Platelet Volume 9.4 7.4-10.4 fL Neutrophils (%) (Auto) 57.4 % Lymphocytes (%) (Auto) 33.1 % Monocytes (%) (Auto) 7.2 % Eosinophils (%) (Auto) 1.7 % Basophils (%) (Auto) 0.3 % Neutrophils # (Auto) 4.08 1.4-6.5 K/uL Lymphocytes # (Auto) 2.35 1.2-3.4 K/uL Monocytes # (Auto) 0.51 0.11-0.59 K/uL Eosinophils # (Auto) 0.12 0-0.5 K/uL Basophils # (Auto) 0.02 0-0.2 K/uL RDW Standard Deviation 44.8 36.4-46.3 fL RDW Coefficient of Variation 13.9 11.5-14.5 % Immature Granulocyte % (Auto) 0.3 % Immature Granulocyte # (Auto) 0.02 0.00-0.02 K/uL Sodium Level 142 136-145 mmol/L Potassium Level 3.7 3.5-5.1 mmol/L Chloride Level 106 98-107 mmol/L Carbon Dioxide Level 25 21-32 mmol/L Anion Gap 11.0 3-11 mmol/L Blood Urea Nitrogen 10 7-18 mg/dl Creatinine 0.75 0.60-1.20 mg/dl Est Creatinine Clear Calc Drug Dose 80.7 ml/min Estimated GFR () 99.7 Estimated GFR (Non- 86.0 BUN/Creatinine Ratio 13.3 10-20 Random Glucose 93 70-99 mg/dl Calcium Level 8.3 8.5-10.1 mg/dl Total Bilirubin 0.7 0.2-1 mg/dl Aspartate Amino Transf (AST/SGOT) 52 15-37 U/L Alanine Aminotransferase (ALT/SGPT) 151 12-78 U/L Alkaline Phosphatase 179 45-117 U/L Total Protein 5.8 6.4-8.2 gm/dl Albumin 2.4 3.4-5.0 gm/dl Globulin 3.4 2.5-4.0 gm/dl Albumin/Globulin Ratio 0.7 0.9-2 Lipase 153 73-393 U/L Bedside Glucose 81 70-90 mg/dl Assessment & Plan 12/20/2016, S/P lparoscopic subtotal cholecystectomy POD 1, pt is doing fine, pulled DERRICK, pt wants to go home today, I gave pt post- op care instruction, pt understood, I answered all questions, F/U 1 week, S/P ERCP, cholelithiasis Pt will have laparoscopic cholecystectomy ,possible open, or cholangiogram tomorrow, D/W benefits, risks and alternatives of the procedure, the risks- infection, bleeding, injury CBD, bowel, incisional hernia, , pt understood , she agrees with the plan, I answered all questions, regular diet S/P ERCP, cholelithiasis Pt will have laparoscopic cholecystectomy ,possible open, or cholangiogram tomorrow, D/W benefits, risks and alternatives of the procedure, the risks- infection, bleeding, injury CBD, bowel, incisional hernia, , pt understood , she agrees with the plan, I answered all questions,
[2016-12-20] MEDS: METOPROLOL SUCC 50MG EXT REL TAB PO SCH (09:42)
[2016-12-20] MEDS: CIPROFLOXACIN 500 MG TAB PO SCH (09:42)
[2016-12-20 09:43] VITALS: BP 150/77; PULSE 70; TEMP 36.5; O2SAT 93
[2016-12-20] MEDS ORDERED: OXYC-57 PO (09:45)
[2016-12-20] MEDS: OXYCODONE/ACETAMINOPHEN 5-325 TAB PO PRN (09:51)
--- NOTE | 2016-12-20 10:05 | DISCHARGE SUMMARY ---
DATE OF DISCHARGE: 12/20/2016. ADMITTING DIAGNOSIS: Acute cholecystitis, cholelithiasis with common bile duct stone. DISCHARGE DIAGNOSIS: Same. OPERATION: Post ERCP and laparoscopic subtotal cholecystectomy. SURGEON: Dr. Ty Herrmann and for ERCP is Dr. Malka Lua. DETAILS OF DISCHARGE SUMMARY: This is 61-year-old female who presented abdominal pain and the patient had CT scan and ultrasound showed chronic acute cholecystitis with gallstone and common bile duct stone and patient was admitted to the hospital. Later on the patient had ERCP by the GI Dr. Lua. The patient tolerated the ERCP well. Following a couple days the patient labs go back normal and we decided to take the patient to the OR. In the OR we found the patient had significant inflammation of the gallbladder. I decided to do laparoscopic subtotal cholecystectomy. The patient tolerated the procedure well. This morning we followed up the patient. The patient doing fine and no significant abdominal pain. No nausea, no vomiting. No diarrhea. The patient tolerated the diet. PHYSICAL EXAMINATION: VITAL SIGNS: This morning temperature is 36.5, heart rate 70, respiratory rate 18, blood pressure 150/76. O2 saturation 93% on room air. GENERAL: The patient is alert, awake, oriented x3. No distress. NECK: No JVD. CHEST: Bilateral lung sounds clear. HEART: Normal S1, S2. No murmur. ABDOMEN: Soft, no tenderness. All dressings intact. Bowel sounds positive. I removed the DERRICK drainage. EXTREMITIES: No edema. I reviewed all the labs with no more limitation. The patient wanted to go home today. I gave the patient postop care instructions. We will follow up the patient in 1 week. Also instructed the patient should come back to hospital ER if patient develops any severe abdominal pain, nausea, vomiting, diarrhea. The patient understands.
== END 2016-12-20 12:01 | disposition home or self-care (01) | DRG 418 ==
LOC: ENRESERVDT → ENRESERVTM → C.EDB 19:23 → C.MSW 12-16 00:39 → OBSVTOIN 12-16 10:21
PROVIDERS: ADMIT Surgery; ATTEND Surgery
PROC: 0FHB8DZ Insertion of Intraluminal Device into Hepatobiliary Duct, Via Natural or Artificial Opening Endoscopic (ICD-10-PCS; principal; 2016-12-17 13:45)
PROC: 0FC98ZZ Extirpation of Matter from Common Bile Duct, Via Natural or Artificial Opening Endoscopic (ICD-10-PCS; principal; 2016-12-17 13:45)
PROC: 0FB44ZZ Excision of Gallbladder, Percutaneous Endoscopic Approach (ICD-10-PCS; 2016-12-19)
DX: K80.62 Calculus of gallbladder and bile duct with acute cholecystitis without obstruction (principal); K80.30 Calculus of bile duct with cholangitis, unspecified, without obstruction; Z79.899 Other long term (current) drug therapy; E66.9 Obesity, unspecified; I10 Essential (primary) hypertension; E03.9 Hypothyroidism, unspecified; E78.5 Hyperlipidemia, unspecified

== ENCOUNTER → 2017-01-07 | Outpatient (CLI) | payer BC ==
[~2017-01-07] MED LIST changes: -METO50TA7 PO; +POTA10CA28 PO; -POTA20TA16 PO
[2017-01-07 11:41] LABS: ALT/SGPT 41 U/L (12-78); AST/SGOT 22 U/L (15-37); BLOOD UREA NITROGEN 18 mg/dl (7-18); BUN/CREATININE RATIO 19.3 (10-20); CALCIUM 9.1 mg/dl (8.5-10.1); CARBON DIOXIDE 31 mmol/L (21-32); CHLORIDE 105 mmol/L (98-107); CREATININE 0.94 mg/dl (0.60-1.20); GLUCOSE 86 mg/dl (70-99); POTASSIUM 3.3 mmol/L (3.5-5.1); SODIUM 143 mmol/L (136-145)
[2017-01-07 11:43] LABS: ALKALINE PHOSPHATASE 92 U/L (45-117)
== END | disposition home or self-care (01) ==
LOC: C.LAB1850 10:09
PROVIDERS: ATTEND Physician Assistant Surgical
DX: Z90.49 Acquired absence of other specified parts of digestive tract (principal)

== ENCOUNTER 2017-01-21 10:57 | Day surgery (SDC) | payer BC ==
[2017-01-06 09:06] VITALS: BMI 37.0
[~2017-01-21] VITALS: Ht 154.9 cm; Wt 88.2 kg
[~2017-01-21 10:57] MED LIST changes: +LACTATED RINGER'S 1000ML 1,000 ML IV SCH; +METO100T44 PO; -METO1TAB69 PO; -POTA10CA28 PO
[2017-01-21 11:21] VITALS: BP 149/72; PULSE 65; TEMP 36.8; O2SAT 95; Ht 154.9 cm; Wt 88.2 kg
[2017-01-21] MEDS ORDERED: LIDOCAINE HCL 2% 2 ML VIAL (20MG/ML) ONE (11:58)
[2017-01-21] MEDS ORDERED: PROPOFOL IV EMULSION 10 MG/ML 20 ML VIAL IV ONE (11:58)
[2017-01-21] MEDS ORDERED: LARYING-O-JET KIT (LTA) EXT ONE ×4 (11:58→12:47)
[2017-01-21] MEDS ORDERED: SUCCINYLCHOLINE CHLORIDE 20 MG/ML 10 ML VIAL IV ONE (11:58)
[2017-01-21] MEDS ORDERED: FENTANYL CITRATE INJ 50 MCG/1 ML 2 ML VIAL ONE (11:58)
[2017-01-21] MEDS ORDERED: MIDAZOLAM HCL 1 MG/ML 2ML VIAL ONE (11:59)
--- NOTE | 2017-01-21 12:13 | Endo History and Physical ---
History & Physical Date of Service: Jan 21, 2017. Chief Complaint: Stent removal Referring Physician: Dr. Herrmann / Dr. Bartholomew History of Present Illness Patient previously admitted with cholangitis presenting for repeat ERCP today with stent removal. Past Surgical History Hx Cardiac Surgery: No Hx Internal Defibrillator: No Hx Pacemaker: No Hx Abdominal Surgery: Yes (LAP JASEN) Hx Post-Op Nausea and Vomiting: No Hx Cancer Surgery: No Hx Thoracic Surgery: No Hx Orthopedic: No Hx Urinary Tract Surgery: No Social History Smoking Status: Never Smoker Hx Substance Use: No Hx Alcohol Use: No Allergies Coded Allergies: Statins (Verified Allergy, Unknown, ACHY, 01/21/17) Current Medications Reported Home Medications Medications Dose Route/Sig Max Daily Dose Days Date Category Dose Instructions Zetia (Ezetimibe) 10 Mg Tab 10 Mg PO QAM 10/11/13 Reported Dyazide 37.5MG/25MG (Triamterene/HCTZ) Cap 1 Tab PO QAM 10/11/13 Reported Toprol-Xl (Metoprolol Succinate) 100 Mg Tabcr 150 Mg PO QAM 10/11/13 Reported Glucophage (Metformin Hcl) 500 Mg Tab 1,000 Mg PO QPM 10/11/13 Reported TAKE 2 TABLETS AT DINNER Glucophage (Metformin Hcl) 500 Mg Tab 500 Mg PO DAILY 10/11/13 Reported TAKE ONE TABLET WITH BREAKFAST. Synthroid (Levothyroxine Sodium) 88 Mcg Tab 88 Mcg PO QAM 10/11/13 Reported Vital Signs Weight (Kilograms): 88.18 Height (Feet): 5 Height (Inches): 1 Date Time Temp Pulse Resp B/P Pulse Ox O2 Delivery O2 Flow Rate FiO2 01/21/17 11:21 36.8 65 149/72 95 Room Air Physical Exam General Appearance: no apparent distress Respiratory/Chest: Auscultation: breath sounds normal Cardiovascular: Heart Auscultation: RRR Abdomen: Inspection & Palpation: soft Assessment and Plan Patient for ERCP today for f/u on cholangitis and biliary stent removal. We have discussed the risks to include bleeding, infection, perforation, pain, pancreatitis and failed cannulation. Plan ERCP today
[2017-01-21] MEDS ORDERED: INDOMETHACIN 50 MG SUPP PR SCH (12:15)
[2017-01-21] MEDS ORDERED: DEXAMETHASONE SOD INJ 4 MG/ML VIAL ONE (12:47)
[2017-01-21] MEDS ORDERED: ONDANSETRON INJ 2 MG/ML 2 ML VIAL ONE (12:47)
--- NOTE | 2017-01-21 13:07 | GI REPORT ---
Procedure Date: 01/21/2017 12:19 PM Procedure: ERCP Indications: Follow-up of ascending cholangitis, Stent removal Medicines: General Anesthesia, Indocin 100 NE Complications: No immediate complications. Estimated blood loss: Minimal. Estimated Blood Loss: Estimated blood loss was minimal. Procedure: Pre-Anesthesia Assessment: - Prior to the procedure, a History and Physical was performed, and patient medications, allergies and sensitivities were reviewed. The patient's tolerance of previous anesthesia was reviewed. - The risks and benefits of the procedure and the sedation options and risks were discussed with the patient. All questions were answered and informed consent was obtained. - Patient identification and proposed procedure were verified prior to the procedure by the physician, the nurse and the blockers skiver. The procedure was verified in the procedure room. - Pre-procedure physical examination revealed no contraindications to sedation. - ASA Grade Assessment: II - A patient with mild systemic disease. - After reviewing the risks and benefits, the patient was deemed in satisfactory condition to undergo the procedure. - The anesthesia plan was to use general anesthesia. - Immediately prior to administration of medications, the patient was re-assessed for adequacy to receive sedatives. - The heart rate, respiratory rate, oxygen saturations, blood pressure, adequacy of pulmonary ventilation, and response to care were monitored throughout the procedure. - The physical status of the patient was re-assessed after the procedure. After obtaining informed consent, the scope was passed under direct vision. Throughout the procedure, the patient's blood pressure, pulse, and oxygen saturations were monitored continuously. The Scope was introduced through the mouth, and advanced to the duodenum and used to inject contrast into the bile duct. The ERCP was accomplished without difficulty. The patient tolerated the procedure well. Findings: A cured meats supervisor film of the abdomen was obtained. Surgical clips, consistent with previous cholecystectomy, were seen in the area of the right upper quadrant of the abdomen. One stent ending in the main bile duct was seen. The esophagus was successfully intubated under direct vision without detailed examination of the pharynx, larynx, and associated structures, and upper GI tract. The upper GI tract was grossly normal. One biliary stent originating in the biliary tree was emerging from the major papilla. The stent was visibly patent. A biliary sphincterotomy had been performed. The sphincterotomy appeared open. One stent was removed from the biliary tree using a snare. The bile duct was deeply cannulated with the short-nosed traction sphincterotome (Omni 35) and 0.035 in Acrobat guidewire. Contrast was injected. I personally interpreted the bile duct images. Contrast extended to the hepatic ducts. The upper third of the main bile duct contained a single segmental stenosis 10 mm in length. This appeared to be in the region where the cystic duct remanent crossed the bile duct (possibly inflammatory). The upper third of the main bile duct was successfully dilated with an 8 mm balloon dilator held inflated for 3 minute. Cells for cytology were obtained by brushing in the upper third of the main bile duct. One 10 Fr by 8 cm biliary stent with a single external flap and a single internal flap was placed 8 cm into the common bile duct. Bile flowed through the stent. The stent was in good position. The total fluoroscopy exposure time was 1 minute and 39 seconds. The endoscope was withdrawn from the patient. Impression: - One visibly patent stent from the biliary tree was seen in the major papilla. - Prior biliary endoscopic sphincterotomy appeared open. - One stent was removed from the biliary tree. - A segmental biliary stricture was found. The stricture was secondary to previous stone(s) and inflammatory. - The upper third of the main bile duct was successfully dilated - Cells for cytology obtained in the upper third of the main bile duct. - One biliary stent was placed into the pseudocyst. Recommendation: - Avoid aspirin and nonsteroidal anti-inflammatory medicines for 1 week. - Clear liquid diet today. - Cipro (ciprofloxacin) 500 mg PO BID for 5 days. - Await cytology results. - Repeat ERCP in 8 - 12 weeks to remove stent. Malka Lua D.O. Malka Lua DO 01/21/2017 1:06:25 PM This report has been signed electronically. Note Initiated On: 01/21/2017 12:19 PM I attest to the content of the Intraoperative Record and orders documented therein, exceptions below
--- NOTE | 2017-01-21 13:09 | [facility] Post Operative Brief Note ---
Immediate Operative Summary Operative Date Jan 21, 2017. Pre-Operative Diagnosis Indwelling Stent Post-Operative Diagnosis Bile Duct Stricture Procedure(s) Performed Endoscopic Retrograde Cholangiopancreatogram with Stent Exchange, Biliary Dilitation and [place] Cytology Surgeon Dr. Malka Lua Box Spring Maker Surgeon(s) None Estimated Blood Loss Zero Findings Stricture of the mid - common bile duct (region of cystic duct crossing CBD) Specimens [place] cytology of the CBD Drains New biliary stent placed Anesthesia general Complication(s) None Disposition Recovery Room / PACU
--- NOTE | 2017-01-21 13:11 | Discharge Instructions ---
Endoscopy Patient Instructions Date / Procedure(s) Performed Jan 21, 2017. ERCP Allergy Information Coded Allergies: Statins (Verified Allergy, Unknown, ACHY, 01/21/17) Discharge Date / Findings Jan 21, 2017. New biliary stent placed A stricture was seen in the upper CBD (possibly inflammatory) Medication Instructions Reported Home Medications Medications Dose Route/Sig Max Daily Dose Days Date Category Dose Instructions Zetia (Ezetimibe) 10 Mg Tab 10 Mg PO QAM 10/11/13 Reported Dyazide 37.5MG/25MG (Triamterene/HCTZ) Cap 1 Tab PO QAM 10/11/13 Reported Toprol-Xl (Metoprolol Succinate) 100 Mg Tabcr 150 Mg PO QAM 10/11/13 Reported Glucophage (Metformin Hcl) 500 Mg Tab 1,000 Mg PO QPM 10/11/13 Reported TAKE 2 TABLETS AT DINNER Glucophage (Metformin Hcl) 500 Mg Tab 500 Mg PO DAILY 10/11/13 Reported TAKE ONE TABLET WITH BREAKFAST. Synthroid (Levothyroxine Sodium) 88 Mcg Tab 88 Mcg PO QAM 10/11/13 Reported Provider Instructions Activity Restrictions - No exercising or heavy lifting for 24 hours. - Do not drink alcohol the day of the procedure. - Do not drive a car or operate machinery until the day after the procedure. - Do not make any important decisions or sign important papers in 24 hours after the procedure. Following Day: - Return to full activity which may include returning to work/school. Diet Clear liquid diet today Regular diet on 01/22/17 Treatment For Common After Affects For mild abdominal pain, bloating, or excessive gas: - Rest - Eat lightly - Lie on right side Follow-Up Information Follow-up with Dr. Lua in 4 weeks Cipro 500 mg twice daily for 5 days Repeat ERCP in 8 to 12 weeks Anesthesia Information What You Should Know You have had a procedure that required some medicine to reduce anxiety and discomfort. This treatment is called moderate sedation. After receiving the treatment, you may be sleepy, but you will be able to breathe on your own. The effects of the treatment may last for several hours. Follow these instructions along with Activity/Diet recommendations noted above: * Do NOT do anything where dizziness or clumsiness would be dangerous. * Rest quietly at home today, then you can be up and about tomorrow. * Have a responsible person stay with you the rest of today. * You may have had an I.V. today. If so, you may take the dressing off later today. Recommendations Call your doctor if: * Trouble breathing * Continuous vomiting for more than 24 hours * Temperature above 101 degrees * Severe abdominal pain or bloating * Pain not relieved by pain medicine ordered * There is increased drainage or redness from any incision * A large amount of rectal bleeding greater than 2-3 tablespoons. (If you had a polyp/s removed or have hemorrhoids, a small amount of blood - from the rectum is to be expected.) * You have any unanswered questions or concerns. IN THE EVENT OF A SERIOUS EMERGENCY, GO TO THE NEAREST EMERGENCY ROOM Your discharge instructions were prepared by provider Malka Lua. Patient Instructions Signature Page Jazzmine Bolaños Patient (or Guardian) Signature/Date: I have read and understand the instructions given to me by my caregivers. Caregiver/RN/Doctor Signature/Date: The above-named patient and/or guardian has received patient instructions on this date. + Original Patient Signature Page (only) stays with chart. Please make copy for patient.
[2017-01-21] MEDS ORDERED: CIPROFLOXACIN 400MG / 200ML D5W IV ONE (13:15)
[2017-01-21] MEDS ORDERED: ONDANSETRON INJ 2 MG/ML 2 ML VIAL IV PRN ×2 (13:15→13:45)
--- NOTE | 2017-01-21 13:25 | DIAGNOSTIC IMAGING REPORT ---
ERCP BILIARY DUCTAL CLINICAL HISTORY: ERCP COMPARISON STUDY: ERCP 12/17/2016. FLUOROSCOPY TIME: 1 minute and 49 seconds. 11 fluoroscopic spot images.. FINDINGS: Initial images demonstrate the endoscope at the second portion of the duodenum and a common bile duct stent in place. The common bile duct stent was removed and a guidewire was placed into the common bile duct. Contrast was injected. Filling defects within the common bile duct consistent with stones. Focal mild stricture within the proximal common bile duct. A balloon sweep was performed. Mild intrahepatic bile duct dilatation. The common bile duct stent was replaced. IMPRESSION: Fluoroscopy provided for a balloon sweep of the common bile duct with replacement of the common bile duct and. Electronically signed by: Dillon Almanza M.D. 01/21/2017 1:24 PM Dictated Date/Time: 01/21/2017 1:22 PM
--- NOTE | 2017-01-21 13:34 | Anesthesiology Progress Note ---
Anesthesia Post Op Note Date & Time Jan 21, 2017 at 13:34 Vital Signs Pain Intensity: 0 Vital Signs Past 12 Hours Date Time Temp Pulse Resp B/P Pulse Ox O2 Delivery O2 Flow Rate FiO2 01/21/17 13:15 67 16 149/87 100 Mask 10 01/21/17 13:08 36.2 80 16 176/86 100 Mask 10 01/21/17 11:21 36.8 65 149/72 95 Room Air Notes Mental Status: alert / awake / arousable, participated in evaluation Pt Amnestic to Procedure: Yes Nausea / Vomiting: adequately controlled Pain: adequately controlled Airway Patency, RR, SpO2: stable & adequate BP & HR: stable & adequate Hydration State: stable & adequate Anesthetic Complications: no major complications apparent
[2017-01-21] MEDS ORDERED: EpHEDrine SULFATE INJ 50 MG/ML AMP IV PRN (13:45)
[2017-01-21] MEDS ORDERED: PROMETHAZINE HCL INJ 6.25 MG in SODIUM CHLORIDE 0.9% 50ML 50 ML IV PRN (13:45)
[2017-01-21] MEDS ORDERED: FENTANYL CITRATE INJ 50 MCG/1 ML 2 ML VIAL IV PRN (13:45)
[2017-01-21] MEDS ORDERED: ATROPINE SULFATE 0.1 MG/ML 5ML SYR IV PRN (13:45)
[2017-01-21 14:03] VITALS: BP 152/80; PULSE 60; TEMP 36.5; O2SAT 94
[2017-01-21 14:31] VITALS: BP 165/82; PULSE 69; O2SAT 97
[2017-01-21 15:00] VITALS: BP 185/88; PULSE 64; TEMP 36.5; O2SAT 99
[2017-01-21 15:15] VITALS: BP 176/91
== END 2017-01-21 15:23 | disposition home or self-care (01) ==
LOC: C.ACU 10:57
PROVIDERS: ATTEND Internal Medicine Gastroenterology
DX: K83.1 Obstruction of bile duct (principal); E11.9 Type 2 diabetes mellitus without complications; E07.9 Disorder of thyroid, unspecified; I10 Essential (primary) hypertension

== ENCOUNTER 2017-04-10 06:24 | Day surgery (SDC) | payer BC ==
[2017-03-18 07:25] VITALS: BMI 37.0
[~2017-04-10] VITALS: Ht 154.9 cm; Wt 88.2 kg
[2017-04-10 06:48] VITALS: BP 84/81; PULSE 72; TEMP 36.8; O2SAT 95; Ht 154.9 cm; Wt 88.2 kg
[2017-04-10 07:04] LABS: BASO % 0.5 %; BASO ABS # 0.02 K/uL (0-0.2); EOS % 4.4 %; LYMPH % 41.3 %; LYMPH ABS # 1.77 K/uL (1.2-3.4); MEAN CELL VOLUME 85.7 fL (80-100); MEAN CORPUSCULAR HEMOGLOBIN 28.4 pg (25-34); MEAN PLATELET VOLUME 9.5 fL (7.4-10.4); MONO % 10.3 %; NEUT % 43.5 %; PLATELET COUNT 229 K/uL (130-400); WHITE BLOOD COUNT 4.29 K/uL (4.8-10.8)
[2017-04-10 07:08] LABS: COMPLETE YES; MEAN CORPUSCULAR HGB CONC 33.1 g/dl (32-36)
[2017-04-10] MEDS ORDERED: PROPOFOL IV EMULSION 10 MG/ML 20 ML VIAL IV ONE (07:13)
[2017-04-10] MEDS ORDERED: NEOSTIGMINE METHYLSULFATE 5 MG/5 ML SYR ONE (07:13)
[2017-04-10] MEDS ORDERED: ONDANSETRON INJ 2 MG/ML 2 ML VIAL ONE (07:13)
[2017-04-10] MEDS ORDERED: SUCCINYLCHOLINE CHLORIDE 20 MG/ML 10 ML VIAL IV ONE (07:13)
[2017-04-10] MEDS ORDERED: DEXAMETHASONE SOD INJ 4 MG/ML VIAL ONE (07:13)
[2017-04-10] MEDS ORDERED: GLYCOPYRROLATE INJ 0.2 MG/ML VIAL ONE (07:13)
[2017-04-10] MEDS ORDERED: MIDAZOLAM HCL 1 MG/ML 2ML VIAL ONE (07:13)
[2017-04-10] MEDS ORDERED: LIDOCAINE HCL 2% 2 ML VIAL (20MG/ML) ONE (07:13)
[2017-04-10] MEDS ORDERED: ROCURONIUM BROMIDE 10 MG/ML 5 ML VIAL ONE (07:13)
[2017-04-10] MEDS ORDERED: EpHEDrine SULFATE INJ 50 MG/ML AMP ONE (07:13)
[2017-04-10] MEDS ORDERED: PHENYLEPHRINE HCL INJ 10 MG/ML VIAL ONE (07:13)
[2017-04-10] MEDS ORDERED: FENTANYL CITRATE INJ 50 MCG/1 ML 2 ML VIAL ONE (07:14)
[2017-04-10] MEDS ORDERED: INDOMETHACIN 50 MG SUPP PR ONE ×2 (07:31→08:15)
[2017-04-10] MEDS ORDERED: ATROPINE SULFATE 0.1 MG/ML 5ML SYR IV PRN (07:45)
[2017-04-10] MEDS ORDERED: ONDANSETRON INJ 2 MG/ML 2 ML VIAL IV PRN ×2 (07:45→09:00)
[2017-04-10] MEDS ORDERED: PROMETHAZINE HCL INJ 6.25 MG in SODIUM CHLORIDE 0.9% 50ML 50 ML IV PRN (07:45)
[2017-04-10] MEDS ORDERED: EpHEDrine SULFATE INJ 50 MG/ML AMP IV PRN (07:45)
[2017-04-10] MEDS ORDERED: FENTANYL CITRATE INJ 50 MCG/1 ML 2 ML VIAL IV PRN (07:45)
--- NOTE | 2017-04-10 07:59 | Endo History and Physical ---
History & Physical Date of Service: Apr 10, 2017. Chief Complaint: NONE Referring Physician: History of Present Illness hISTORY OF GALLSTONES FOR F/U ERCP TODAY Past Surgical History Hx Cardiac Surgery: No Hx Internal Defibrillator: No Hx Pacemaker: No Hx Abdominal Surgery: Yes (LAP JASEN, BILATERAL TUBAL LIGATION) Hx Post-Op Nausea and Vomiting: Yes (WITH LAST ERCP, PT BECAME NAUSEATED) Hx Cancer Surgery: No Hx Thoracic Surgery: No Hx Orthopedic: No Hx Urinary Tract Surgery: No Social History Smoking Status: Never Smoker Hx Substance Use: No Hx Alcohol Use: No Allergies Coded Allergies: Statins (Verified Allergy, Unknown, KG, 04/10/17) Current Medications Reported Home Medications Medications Dose Route/Sig Max Daily Dose Days Date Category Dose Instructions Zetia (Ezetimibe) 10 Mg Tab 10 Mg PO QAM 10/11/13 Reported Dyazide 37.5MG/25MG (Triamterene/HCTZ) Cap 1 Tab PO QAM 10/11/13 Reported Toprol-Xl (Metoprolol Succinate) 100 Mg Tabcr 150 Mg PO QAM 10/11/13 Reported Glucophage (Metformin Hcl) 500 Mg Tab 1,000 Mg PO QPM 10/11/13 Reported TAKE 2 TABLETS AT DINNER Glucophage (Metformin Hcl) 500 Mg Tab 500 Mg PO DAILY 10/11/13 Reported TAKE ONE TABLET WITH BREAKFAST. Synthroid (Levothyroxine Sodium) 88 Mcg Tab 88 Mcg PO QAM 10/11/13 Reported Vital Signs Weight (Kilograms): 88.18 Height (Feet): 5 Height (Inches): 1 Date Time Temp Pulse Resp B/P (MAP) Pulse Ox O2 Delivery O2 Flow Rate FiO2 04/10/17 06:48 36.8 72 18 84/81 (82) 95 Room Air Physical Exam General Appearance: no apparent distress Respiratory/Chest: Respiratory effort: no dyspnea Auscultation: breath sounds normal Cardiovascular: Heart Auscultation: RRR Abdomen: Inspection & Palpation: soft Assessment and Plan PATIENT FOR F/U ERCP TODAY, RISKS DISCUSSED TO INCLUDE BLEEDING, INFECTION, PERFORATION, PAIN, AND PANCREATITIS
[2017-04-10] MEDS ORDERED: METOCLOPRAMIDE HCL INJ 5 MG/ML 2 ML VIAL ONE (08:13)
--- NOTE | 2017-04-10 08:48 | GI REPORT ---
Procedure Date: 04/10/2017 8:22 AM Procedure: ERCP Indications: Stent removal, Bile duct stricture Medicines: General Anesthesia, Indocin 100 mg CA Complications: No immediate complications. Estimated blood loss: Minimal. Estimated Blood Loss: Estimated blood loss was minimal. Procedure: Pre-Anesthesia Assessment: - Prior to the procedure, a History and Physical was performed, and patient medications, allergies and sensitivities were reviewed. The patient's tolerance of previous anesthesia was reviewed. - The risks and benefits of the procedure and the sedation options and risks were discussed with the patient. All questions were answered and informed consent was obtained. - Patient identification and proposed procedure were verified prior to the procedure by the physician, the nurse and the home service director. The procedure was verified in the procedure room. - Pre-procedure physical examination revealed no contraindications to sedation. - ASA Grade Assessment: III - A patient with severe systemic disease. - After reviewing the risks and benefits, the patient was deemed in satisfactory condition to undergo the procedure. - The anesthesia plan was to use general anesthesia. - Immediately prior to administration of medications, the patient was re-assessed for adequacy to receive sedatives. - The heart rate, respiratory rate, oxygen saturations, blood pressure, adequacy of pulmonary ventilation, and response to care were monitored throughout the procedure. - The physical status of the patient was re-assessed after the procedure. After obtaining informed consent, the scope was passed under direct vision. Throughout the procedure, the patient's blood pressure, pulse, and oxygen saturations were monitored continuously. The SCOPE was introduced through the mouth, and advanced to the duodenum and used to inject contrast into the bile duct. The ERCP was accomplished without difficulty. The patient tolerated the procedure well. Findings: A press set up person film of the abdomen was obtained. One stent ending in the main bile duct was seen. Surgical clips, consistent with previous cholecystectomy, were seen in the area of the right upper quadrant of the abdomen. The esophagus was successfully intubated under direct vision without detailed examination of the pharynx, larynx, and associated structures, and upper GI tract. The upper GI tract was grossly normal. One biliary stent originating in the biliary tree was emerging from the major papilla. The stent was partially occluded. A biliary sphincterotomy had been performed. The sphincterotomy appeared open. One stent was removed from the biliary tree using a snare. The bile duct was deeply cannulated with the short-nosed traction sphincterotome and 0.035 in Acrobat guidewire. Contrast was injected. I personally interpreted the bile duct images. Contrast extended to the hepatic ducts. The main bile duct was diffusely dilated. The largest diameter was 10 mm. To discover objects, the biliary tree was swept with a 15 mm balloon starting at the bifurcation. Sludge was swept from the duct. The previously noted biliary stricture had resolved. The endoscope was withdrawn from the patient. Impression: - One partially occluded stent from the biliary tree was seen in the major papilla. - Prior biliary endoscopic sphincterotomy appeared open. - One stent was removed from the biliary tree. - The entire main bile duct was dilated. - The biliary tree was swept and sludge was found. Recommendation: - Avoid aspirin and nonsteroidal anti-inflammatory medicines for 5 days. - Clear liquid diet today. - Observe patient's clinical course following today's ERCP with therapeutic intervention. Malka Lua D.O. Malka Lua DO 04/10/2017 8:47:37 AM This report has been signed electronically. Note Initiated On: 04/10/2017 8:22 AM I attest to the content of the Intraoperative Record and orders documented therein, exceptions below
--- NOTE | 2017-04-10 08:58 | Discharge Instructions ---
Endoscopy Patient Instructions Date / Procedure(s) Performed Apr 10, 2017. ERCP Allergy Information Coded Allergies: Statins (Verified Allergy, Unknown, ACHY, 04/10/17) Discharge Date / Findings Apr 10, 2017. Resolution of a biliary stricture Mld dilation of the common bile duct Medication Instructions Reported Home Medications Medications Dose Route/Sig Max Daily Dose Days Date Category Dose Instructions Zetia (Ezetimibe) 10 Mg Tab 10 Mg PO QAM 10/11/13 Reported Dyazide 37.5MG/25MG (Triamterene/HCTZ) Cap 1 Tab PO QAM 10/11/13 Reported Toprol-Xl (Metoprolol Succinate) 100 Mg Tabcr 150 Mg PO QAM 10/11/13 Reported Glucophage (Metformin Hcl) 500 Mg Tab 1,000 Mg PO QPM 10/11/13 Reported TAKE 2 TABLETS AT DINNER Glucophage (Metformin Hcl) 500 Mg Tab 500 Mg PO DAILY 10/11/13 Reported TAKE ONE TABLET WITH BREAKFAST. Synthroid (Levothyroxine Sodium) 88 Mcg Tab 88 Mcg PO QAM 10/11/13 Reported Provider Instructions Activity Restrictions - No exercising or heavy lifting for 24 hours. - Do not drink alcohol the day of the procedure. - Do not drive a car or operate machinery until the day after the procedure. - Do not make any important decisions or sign important papers in 24 hours after the procedure. Following Day: - Return to full activity which may include returning to work/school. Diet Liquid diet today Regular diet on 04/11/17 Treatment For Common After Affects For mild abdominal pain, bloating, or excessive gas: - Rest - Eat lightly - Lie on right side Follow-Up Information Follow-up with Dr. Lua as needed Anesthesia Information What You Should Know You have had a procedure that required some medicine to reduce anxiety and discomfort. This treatment is called moderate sedation. After receiving the treatment, you may be sleepy, but you will be able to breathe on your own. The effects of the treatment may last for several hours. Follow these instructions along with Activity/Diet recommendations noted above: * Do NOT do anything where dizziness or clumsiness would be dangerous. * Rest quietly at home today, then you can be up and about tomorrow. * Have a responsible person stay with you the rest of today. * You may have had an I.V. today. If so, you may take the dressing off later today. Recommendations Call your doctor if: * Trouble breathing * Continuous vomiting for more than 24 hours * Temperature above 101 degrees * Severe abdominal pain or bloating * Pain not relieved by pain medicine ordered * There is increased drainage or redness from any incision * A large amount of rectal bleeding greater than 2-3 tablespoons. (If you had a polyp/s removed or have hemorrhoids, a small amount of blood - from the rectum is to be expected.) * You have any unanswered questions or concerns. IN THE EVENT OF A SERIOUS EMERGENCY, GO TO THE NEAREST EMERGENCY ROOM Your discharge instructions were prepared by provider Malka Lua. Patient Instructions Signature Page Jazzmine Bolaños Patient (or Guardian) Signature/Date: I have read and understand the instructions given to me by my caregivers. Caregiver/RN/Doctor Signature/Date: The above-named patient and/or guardian has received patient instructions on this date. + Original Patient Signature Page (only) stays with chart. Please make copy for patient.
--- NOTE | 2017-04-10 09:01 | DIAGNOSTIC IMAGING REPORT ---
ERCP BILIARY DUCTAL CLINICAL HISTORY: EXPLORE DUCTS IN OR COMPARISON STUDY: ERCP 01/21/2017. FLUOROSCOPY TIME: 42 seconds. FINDINGS: 6 fluoroscopic spot images of the right upper quadrant were submitted. There is an endoscope at the second portion of the duodenum. The ampulla was cannulated. Contrast was injected into the common bile duct. Multiple filling defects suggestive of stones. A balloon sweep was performed. IMPRESSION: Fluoroscopy provided for ERCP. Electronically signed by: Dillon Almanza M.D. 04/10/2017 8:59 AM Dictated Date/Time: 04/10/2017 8:58 AM
[2017-04-10 09:35] VITALS: BP 158/69; PULSE 65; TEMP 36.6; O2SAT 98
--- NOTE | 2017-04-10 09:38 | Anesthesiology Progress Note ---
Anesthesia Post Op Note Date & Time Apr 10, 2017 at 09:38 Vital Signs Pain Intensity: 0 Vital Signs Past 12 Hours Date Time Temp Pulse Resp B/P (MAP) Pulse Ox O2 Delivery O2 Flow Rate FiO2 04/10/17 09:35 59 13 140/76 97 Room Air 04/10/17 09:25 36.3 59 12 146/80 98 Room Air 04/10/17 09:15 57 16 180/84 99 Room Air 04/10/17 09:05 63 17 152/88 100 Mask 10 04/10/17 08:55 64 13 157/87 100 Mask 10 04/10/17 08:49 36.2 62 12 163/85 100 Mask 10 04/10/17 06:48 36.8 72 18 84/81 (82) 95 Room Air Notes Mental Status: alert / awake / arousable, participated in evaluation Pt Amnestic to Procedure: Yes Nausea / Vomiting: adequately controlled Pain: adequately controlled Airway Patency, RR, SpO2: stable & adequate BP & HR: stable & adequate Hydration State: stable & adequate Anesthetic Complications: no major complications apparent
--- NOTE | 2017-04-10 09:51 | [facility] Post Operative Brief Note ---
Immediate Operative Summary Operative Date Apr 10, 2017. Pre-Operative Diagnosis Biliary stricture Post-Operative Diagnosis Dilated CBD Procedure(s) Performed Endoscopic Retrograde Cholangiopancreatogram with Stent Removal Surgeon Dr. Lua Switch Box Installer Surgeon(s) none Estimated Blood Loss 0 cc Findings Dilated CBD Biliary sludge Resolution of a biliary stricture Specimens none per surgeon Anesthesia General Complication(s) None Disposition Surgical ICU
[2017-04-10 10:05] VITALS: BP 163/74; PULSE 63; O2SAT 98
== END 2017-04-10 10:30 | disposition home or self-care (01) ==
LOC: C.ACU 06:24
PROVIDERS: ATTEND Internal Medicine Gastroenterology
DX: K83.1 Obstruction of bile duct (principal); Z45.89 Encounter for adjustment and management of other implanted devices; I10 Essential (primary) hypertension; E11.9 Type 2 diabetes mellitus without complications; Z90.49 Acquired absence of other specified parts of digestive tract; Z98.51 Tubal ligation status; E66.9 Obesity, unspecified; Z68.37 Body mass index [BMI] 37.0-37.9, adult

== ENCOUNTER → 2017-05-06 | Outpatient (CLI) | payer BC ==
[~2017-05-06] MED LIST changes: -LACTATED RINGER'S 1000ML 1,000 ML IV SCH; -METO100T44 PO; +METO1TAB69 PO; +POTA10CA28 PO
[2017-05-06 12:34] LABS: ALT/SGPT 49 U/L (12-78); AST/SGOT 31 U/L (15-37); BLOOD UREA NITROGEN 17 mg/dl (7-18); BUN/CREATININE RATIO 17.1 (10-20); CALCIUM 9.4 mg/dl (8.5-10.1); CARBON DIOXIDE 29 mmol/L (21-32); CHLORIDE 106 mmol/L (98-107); CREATININE 0.98 mg/dl (0.60-1.20); GLUCOSE 100 mg/dl (70-99); SODIUM 142 mmol/L (136-145)
[2017-05-06 12:45] LABS: ALB/GLOB RATIO 1.2 (0.9-2); ALKALINE PHOSPHATASE 78 U/L (45-117); CHOLESTEROL 191 mg/dl (0-200); CHOLESTEROL/HDL RATIO 3.8; HDL CHOLESTEROL 50 mg/dl; LDL CHOLESTEROL CALCULATED 118 mg/dl; THYROID STIMULATING HORMONE 0.831 uIu/ml (0.300-4.500); TRIGLYCERIDES 115 mg/dl (0-150); VERY LOW DENSITY LIPOPROT CALC 23 mg/dl
[2017-05-06 12:53] LABS: ESTIMATED AVERAGE GLUCOSE 128 mg/dl; HA1C FLAG Normal (Normal)
== END | disposition home or self-care (01) ==
LOC: C.LAB1850 10:41
PROVIDERS: ATTEND Internal Medicine
DX: Z00.00 Encounter for general adult medical examination without abnormal findings (principal); R73.03 Prediabetes; E03.9 Hypothyroidism, unspecified; K85.10 Biliary acute pancreatitis without necrosis or infection

== ENCOUNTER 2017-05-28 15:50 | Emergency (ER) | payer BC ==
[~2017-05-28] VITALS: Ht 154.9 cm; Wt 86.0 kg
[~2017-05-28 15:50] MED LIST changes: -POTA10CA28 PO
[2017-05-28 15:54] VITALS: TEMP 37.3; Ht 154.9 cm; Wt 86.0 kg
--- NOTE | 2017-05-28 16:22 | EMERGENCY ROOM VISIT NOTE ---
History Report prepared by Cesar: Kole Hdz Under the Supervision of: Dr. Mayte Burris D.O. First contact with patient: 16:02 Chief Complaint: ABDOMINAL PAIN Stated Complaint: FLU, STOMACH PAIN Nursing Triage Summary: Since May 14, pt has been experiencing episodes of diaphoresis, nausea, and abdominal pain, finally today she felt better so she came in for eval. Pt believes she has the flu. Pt also c/o sharp pain with deep inspiration. at this time rates abdominal pain zero/10. History of Present Illness The patient is a 62 year old female who presents to the Emergency Room with complaints of persistent flu-like symptoms that started around 2 weeks ago. The patient states that she thinks she has the flu. She says that she was seeing her primary care physician for a regular checkup on the day that the symptoms came on. The patient states that she has been fatigued and intermittently nauseous and sweaty, with alternating chills and hot spells. The patient states that she has been taking her temperature, and she has not had a fever. The patient adds that she has been having intermittent upper abdominal pain. She says that movement and taking a deep breath brings on the pain, and she rates the pain about a 6 out of 10 in severity. The patient notes that when she gets up in the morning, she has been having a runny nose with clear phlegm. The patient has had a decreased appetite, but did eat Jell-O today. She states that her abdomen feels bloated easily after drinking water. She denies any cough or urinary symptoms. The patient notes that her was sick earlier last month with similar symptoms. She adds that her potassium was running low, but she has not been taking her potassium medication. The patient had a cholecystectomy in December due to gallstone pancreatitis. She says that she was told that there was a little piece left by her surgeon. Source of History: patient Onset: Around 2 weeks ago Position: other (global - flu-like symptoms) Timing: other (persistent) Associated Symptoms: + chills, + diaphoresis, + nausea, + abdominal pain, + fatigue, No fevers, No cough, No urinary symptoms Note: Associated symptoms: Runny nose with clear phlegm in morning. Decreased appetite. Review of Systems See HPI for pertinent positives & negatives. A total of 10 systems reviewed and were otherwise negative. Past Medical & Surgical Surgical Problems: (1) Gallstone pancreatitis (2) Hx of cholecystectomy (3) S/P ERCP Family History Cancer Social History Smoking Status: Never Smoker Drug Use: none Marital Status: Housing Status: lives with significant other Occupation Status: employed Current/Historical Medications Scheduled Ezetimibe (Zetia), 10 MG PO QAM Levothyroxine Sodium (Synthroid), 88 MCG PO QAM Metformin Hcl (Glucophage), 500 MG PO DAILY Metformin Hcl (Glucophage), 1,000 MG PO QPM Metoprolol Succ (Toprol Xl) (Toprol-Xl ), 150 MG PO QAM Potassium Chloride (Micro-K Ext Rel), 10 MEQ PO DAILY Triamterene/Hctz (Dyazide 37.5MG/25MG), 1 TAB PO QAM Allergies Coded Allergies: Statins (Verified Allergy, Unknown, ACHY, 05/28/17) Physical Exam Vital Signs Date Time Temp Pulse Resp B/P (MAP) Pulse Ox O2 Delivery O2 Flow Rate FiO2 05/28/17 22:05 95 18 131/90 94 Room Air 05/28/17 20:12 98 14 148/98 92 Room Air 05/28/17 18:29 111 20 159/94 95 Room Air 05/28/17 15:54 37.3 124 18 110/75 95 Room Air Physical Exam GENERAL: alert, well appearing, well nourished, no distress, non-toxic EYE EXAM: normal conjunctiva, PERRL and EOM's grossly intact OROPHARYNX: no exudate, no erythema, lips, buccal mucosa, and tongue normal and mucous membranes are dry NECK: supple, no nuchal rigidity, no adenopathy, non-tender LUNGS: Clear to auscultation. Normal chest wall mechanics HEART: no murmurs, S1 normal and S2 normal ABDOMEN: abdomen soft, non-tender, normo-active bowel sounds, no masses, no rebound or guarding. BACK: Back is symmetrical on inspection and there is no deformity, no midline tenderness, no CVA tenderness. SKIN: no rashes and no bruising UPPER EXTREMITIES: upper extremities are grossly normal. LOWER EXTREMITIES: No pitting edema. NEURO EXAM: Normal sensorium, cranial nerves II-XII grossly intact, normal speech, no gross weakness of arms, no gross weakness of legs. No drift. Finger to nose intact. Gross sensation intact. Medical Decision & Procedures ER Provider Diagnostic Interpretation: Radiology results have been interpreted by the radiologist and reviewed by me. ABDOMEN 2VIEW W/PA CHEST RTN CLINICAL HISTORY: Abdominal pain and flulike symptoms COMPARISON STUDY: 12/15/2016 FINDINGS: The heart is normal in size. There is no lobar consolidation. There is mild bronchovascular crowding at the lung bases. There is no free intraperitoneal air. Erect and supine views the abdomen reveal no abnormally dilated loops of large or small bowel. There are no transition zones indicate bowel obstruction. There are surgical clips in the right upper quadrant. There are few scattered colonic air-fluid levels. IMPRESSION: No evidence of bowel obstruction. No evidence of free air. Electronically signed by: Jose Juan Jiang M.D. 05/28/2017 5:44 PM Dictated Date/Time: 05/28/2017 5:43 PM ABDOMEN LIMITED (US) HISTORY: Pain. Nausea. epigastric/ruq pain. COMPARISON: 12/16/2016 FINDINGS: Pancreas: The pancreas demonstrates a normal echotexture. Liver: Fatty infiltration Gallbladder: Surgically removed CBD: 7 mm Right kidney: No hydronephrosis. IMPRESSION: 1. Fatty infiltration of liver. 2. Otherwise negative study post cholecystectomy. The above report was generated using voice recognition software. It may contain grammatical, syntax or spelling errors. Electronically signed by: Lorenzo Tinoco M.D. 05/28/2017 8:17 PM Dictated Date/Time: 05/28/2017 8:15 PM Laboratory Results 05/28/17 16:35 Red Blood Count 4.86, Mean Corpuscular Volume 86.2, Mean Corpuscular Hemoglobin 30.5, Mean Corpuscular Hemoglobin Concent 35.3, Mean Platelet Volume 9.6, Neutrophils (%) (Auto) 81.0, Lymphocytes (%) (Auto) 12.9, Monocytes (%) (Auto) 5.0, Eosinophils (%) (Auto) 0.2, Basophils (%) (Auto) 0.2, Neutrophils # (Auto) 9.32, Lymphocytes # (Auto) 1.48, Monocytes # (Auto) 0.57, Eosinophils # (Auto) 0.02, Basophils # (Auto) 0.02 05/28/17 16:35 Test 05/28/17 16:30 05/28/17 16:35 05/28/17 19:24 Influenza Type A Antigen Neg for Influ A (NEG) Influenza Type B Antigen Neg for Influ B (NEG) White Blood Count 11.49 K/uL (4.8-10.8) Red Blood Count 4.86 M/uL (4.2-5.4) Hemoglobin 14.8 g/dL (12.0-16.0) Hematocrit 41.9 % (37-47) Mean Corpuscular Volume 86.2 fL (80-100) Mean Corpuscular Hemoglobin 30.5 pg (25-34) Mean Corpuscular Hemoglobin Concent 35.3 g/dl (32-36) Platelet Count 506 K/uL (130-400) Mean Platelet Volume 9.6 fL (7.4-10.4) Neutrophils (%) (Auto) 81.0 % Lymphocytes (%) (Auto) 12.9 % Monocytes (%) (Auto) 5.0 % Eosinophils (%) (Auto) 0.2 % Basophils (%) (Auto) 0.2 % Neutrophils # (Auto) 9.32 K/uL (1.4-6.5) Lymphocytes # (Auto) 1.48 K/uL (1.2-3.4) Monocytes # (Auto) 0.57 K/uL (0.11-0.59) Eosinophils # (Auto) 0.02 K/uL (0-0.5) Basophils # (Auto) 0.02 K/uL (0-0.2) RDW Standard Deviation 43.4 fL (36.4-46.3) RDW Coefficient of Variation 13.8 % (11.5-14.5) Immature Granulocyte % (Auto) 0.7 % Immature Granulocyte # (Auto) 0.08 K/uL (0.00-0.02) Anion Gap 11.0 mmol/L (3-11) Est Creatinine Clear Calc Drug Dose 65.2 ml/min Estimated GFR () 80.5 Estimated GFR (Non- 69.5 BUN/Creatinine Ratio 18.8 (10-20) Calcium Level 9.6 mg/dl (8.5-10.1) Magnesium Level 2.4 mg/dl (1.8-2.4) Total Bilirubin 0.9 mg/dl (0.2-1) Aspartate Amino Transf (AST/SGOT) 57 U/L (15-37) Alanine Aminotransferase (ALT/SGPT) 57 U/L (12-78) Alkaline Phosphatase 311 U/L (45-117) Troponin I < 0.015 ng/ml (0-0.045) Pro-B-Type Natriuretic Peptide 80 pg/ml (0-900) Total Protein 7.6 gm/dl (6.4-8.2) Albumin 2.0 gm/dl (3.4-5.0) Globulin 5.6 gm/dl (2.5-4.0) Albumin/Globulin Ratio 0.4 (0.9-2) Thyroid Stimulating Hormone (TSH) 11.600 uIu/ml (0.300-4.500) Lyme Disease IgG Antibody NEG (NEG) Lyme Disease IgM Antibody NEG (NEG) Monoscreen NEG (NEG) Urine Color DK YELLOW Urine Appearance CLEAR (CLEAR) Urine pH 5.5 (4.5-7.5) Urine Specific [place] 1.022 (1.000-1.030) Urine Protein TRACE (NEG) Urine Glucose (UA) NEG (NEG) Urine Ketones 2+ (NEG) Urine Occult Blood 2+ (NEG) Urine Nitrite NEG (NEG) Urine Bilirubin NEG (NEG) Urine Urobilinogen POS (NEG) Urine Leukocyte Esterase TRACE (NEG) Urine WBC (Auto) 1-5 /hpf (0-5) Urine RBC (Auto) 5-10 /hpf (0-4) Urine Hyaline Casts (Auto) 1-5 /lpf (0-5) Urine Epithelial Cells (Auto) 20-30 /lpf (0-5) Urine Bacteria (Auto) NEG (NEG) Laboratory results per my review. Medications Administered Medications (Trade) Dose Ordered Sig/Joe Route Start Time Stop Time Status Last Admin Dose Admin Sodium Chloride 1,000 ml @ 999 mls/hr Q1H1M STAT IV 05/28/17 16:26 05/28/17 17:26 DC 05/28/17 16:46 999 MLS/HR Potassium Chloride (Klor-Con M10) 40 meq NOW STAT PO 05/28/17 17:42 05/28/17 17:43 DC 05/28/17 18:27 40 MEQ Al Hydroxide/Mg Hydroxide (Maalox Susp) 30 ml NOW STAT PO 05/28/17 19:00 05/28/17 19:02 DC 05/28/17 19:21 30 ML Sodium Chloride 1,000 ml @ 999 mls/hr Q1H1M STAT IV 05/28/17 21:00 05/28/17 22:00 DC 05/28/17 21:06 999 MLS/HR ECG Indication: abdominal pain Rate (beats per minute): 107 Rhythm: sinus tachycardia Findings: no acute ischemic change, no ectopy, other (normal axis, normal intervals) ED Course 1603: The patient was evaluated in room A11B. A complete history and physical exam was performed. 1626: Ordered NSS 1000 ml @ 999 mls/hr IV. 1742: Ordered Klor-Con M10 40 meq PO. 1855: I reevaluated the patient and she is still not feeling well. She gave us a urine sample. Pt with known thyroid dysfunction on levothyroxine. States hasn't taken in a couple of days bc of not feeling well. 0: Ordered Maalox Susp 30 ml PO. 2099: Ordered NSS 1000 ml @ 999 mls/hr IV. 2101: I reevaluated and updated the patient and she will do a PO challenge. 6: Upon reevaluation, the patient is feeling better. I discussed the findings and the treatment plan with the patient. She verbalizes agreement and understanding. She was discharged home. Medical Decision Differential diagnosis: Etiologies such as metabolic, infection, hypo/hyperglycemia, electrolyte abnormalities, cardiac sources, intracerebral event, toxicologic, neurologic, as well as others were entertained. Pt with vague generalized symptoms over the last 1-2 weeks. Sick contact with similar symptoms, however pt feels hers are lasting longer. Pt clinically dehydrated, labs however reassuring. Pt with hx of thyroid dysfunction, hasn't taken her meds in several days due to nausea. Pt reported feeling better following IVF. No evidence for bacteremia/sepsis. Discussed imaging with pt. She was agreeable with xrays/US, did not want CT despite nausea and intermittent upper abd pain as she feels she has had too many and states "drinking the contrast makes her sick". No abd pain during exam. Pt tolerated po prior to DC, ambulated with steady gait and no orthostatic symptoms. Discussed f/u with PCP, sx to watch/return for, possible need for additional testing by her PCP if her symptoms persist. Discussed diet/hydration, taking meds as prescribed. Pt with hx of hypokalemia and is supposed to take supplements daily. Pt improved at time of dc and stated felt improved. Aware of all results and need for close f/u. Was agreeable with plan. Medication Reconcilliation Current Medication List: was personally reviewed by me Blood Pressure Screening Patient's blood pressure: Normal blood pressure Impression Primary Impression: Fatigue Additional Impression: Nausea Scribe Attestation The scribe's documentation has been prepared under my direction and personally reviewed by me in its entirety. I confirm that the note above accurately reflects all work, treatment, procedures, and medical decision making performed by me. Departure Information Dispostion Home / Self-Care Referrals Mejia Bartholomew M.D. (PCP) Patient Instructions [facility] Additional Instructions Please follow up with your family doctor. Please have them recheck your thyroid number and please take your medications as prescribed. Please make sure you're drinking normally and staying well-hydrated. If you have any worsening symptoms, or develop other new and concerning symptoms, please return to the emergency room. Problem Qualifiers Primary Impression: Fatigue Fatigue type: unspecified Qualified Codes: R53.83 - Other fatigue
[2017-05-28] MEDS ORDERED: SODIUM CHLORIDE 0.9% 1000ML 1,000 ML IV STA ×2 (16:26→21:00)
[2017-05-28] MEDS ORDERED: POTA10CA28 PO (16:29)
[2017-05-28 16:50] LABS: BASO % 0.2 %; BASO ABS # 0.02 K/uL (0-0.2); COMPLETE YES; EOS % 0.2 %; HEMATOCRIT 41.9 % (37-47); IG% 0.7 %; LYMPH % 12.9 %; LYMPH ABS # 1.48 K/uL (1.2-3.4); MEAN CELL VOLUME 86.2 fL (80-100); MEAN CORPUSCULAR HEMOGLOBIN 30.5 pg (25-34); MEAN CORPUSCULAR HGB CONC 35.3 g/dl (32-36); MEAN PLATELET VOLUME 9.6 fL (7.4-10.4); PLATELET COUNT 506 K/uL (130-400); RED BLOOD COUNT 4.86 M/uL (4.2-5.4); WHITE BLOOD COUNT 11.49 K/uL (4.8-10.8)
[2017-05-28 17:09] LABS: ALT/SGPT 57 U/L (12-78); BLOOD UREA NITROGEN 17 mg/dl (7-18); BUN/CREATININE RATIO 18.8 (10-20); CALCIUM 9.6 mg/dl (8.5-10.1); CARBON DIOXIDE 28 mmol/L (21-32); CHLORIDE 100 mmol/L (98-107); CREATININE 0.89 mg/dl (0.60-1.20); GLUCOSE 118 mg/dl (70-99); MAGNESIUM 2.4 mg/dl (1.8-2.4); SODIUM 139 mmol/L (136-145)
[2017-05-28 17:19] LABS: ALB/GLOB RATIO 0.4 (0.9-2); ALKALINE PHOSPHATASE 311 U/L (45-117); AST/SGOT 57 U/L (15-37)
[2017-05-28] MEDS ORDERED: POTASSIUM CHLORIDE 10 MEQ TABCR PO STA (17:42)
--- NOTE | 2017-05-28 17:45 | DIAGNOSTIC IMAGING REPORT ---
ABDOMEN 2VIEW W/PA CHEST RTN CLINICAL HISTORY: Abdominal pain and flulike symptoms COMPARISON STUDY: 12/15/2016 FINDINGS: The heart is normal in size. There is no lobar consolidation. There is mild bronchovascular crowding at the lung bases. There is no free intraperitoneal air. Erect and supine views the abdomen reveal no abnormally dilated loops of large or small bowel. There are no transition zones indicate bowel obstruction. There are surgical clips in the right upper quadrant. There are few scattered colonic air-fluid levels. IMPRESSION: No evidence of bowel obstruction. No evidence of free air. Electronically signed by: Jose Juan Jiang M.D. 05/28/2017 5:44 PM Dictated Date/Time: 05/28/2017 5:43 PM
[2017-05-28 17:54] LABS: LYME DISEASE AB IGG NEG (NEG); LYME DISEASE AB IGM NEG (NEG)
[2017-05-28] MEDS ORDERED: ALUMINUM/MAGNESIUM SUSP 30 ML UDC PO STA (19:00)
[2017-05-28 19:57] LABS: URINE APPEARANCE CLEAR (CLEAR); URINE COLOR DK YELLOW; URINE EPITHELIAL CELL AUTO 20-30 /lpf (0-5); URINE NITRITE NEG (NEG); URINE PH 5.5 (4.5-7.5); URINE SPECIFIC GRAVITY 1.022 (1.000-1.030); UROBILINOGEN POS (NEG); ZZUR CULT IF INDIC CLEAN CATCH NO
[2017-05-28 19:59] LABS: MANUAL MICROSCOPIC REQUIRED? NO; REVIEW REQ? NO; URINE BILIRUBIN NEG (NEG)
--- NOTE | 2017-05-28 20:18 | DIAGNOSTIC IMAGING REPORT ---
ABDOMEN LIMITED (US) HISTORY: Pain. Nausea. epigastric/ruq pain. COMPARISON: 12/16/2016 FINDINGS: Pancreas: The pancreas demonstrates a normal echotexture. Liver: Fatty infiltration Gallbladder: Surgically removed CBD: 7 mm Right kidney: No hydronephrosis. IMPRESSION: 1. Fatty infiltration of liver. 2. Otherwise negative study post cholecystectomy. The above report was generated using voice recognition software. It may contain grammatical, syntax or spelling errors. Electronically signed by: Lorenzo Tinoco M.D. 05/28/2017 8:17 PM Dictated Date/Time: 05/28/2017 8:15 PM
[2017-05-28 22:05] VITALS: BP 131/90; PULSE 95; O2SAT 94
== END 2017-05-28 22:22 | disposition home or self-care (01) ==
LOC: C.EDB 15:51 → C.EDA 22:22
DX: R53.1 Weakness (principal); R11.0 Nausea; R00.0 Tachycardia, unspecified; K85.10 Biliary acute pancreatitis without necrosis or infection; Z90.49 Acquired absence of other specified parts of digestive tract; Z79.84 Long term (current) use of oral hypoglycemic drugs; Z79.899 Other long term (current) drug therapy; Z80.9 Family history of malignant neoplasm, unspecified; Z91.09 Other allergy status, other than to drugs and biological substances

== ENCOUNTER → 2017-12-01 | Outpatient (CLI) | payer BC ==
[~2017-12-01] MED LIST changes: +METO100T44 PO; -METO1TAB69 PO; +POTA10CA28 PO
--- NOTE | 2017-12-02 15:22 | MAMMOGRAPHY REPORT ---
BILATERAL DIGITAL SCREENING MAMMOGRAM TOMOSYNTHESIS WITH CAD: 12/01/2017 CLINICAL HISTORY: Routine screening. Patient has no complaints. TECHNIQUE: Breast tomosynthesis in addition to standard 2D mammography was performed. Current study was also evaluated with a Computer Aided Detection (CAD) system. COMPARISON: Comparison is made to exams dated: 11/28/2016 mammogram, 11/27/2015 mammogram, 11/23/2014 [place] mogram, 11/22/2013 mammogram, 11/18/2012 mammogram, and 11/13/2011 mammogram - [facility] er. BREAST COMPOSITION: The tissue of both breasts is almost entirely fatty. FINDINGS: There is stable nodularity in the medial right breast. No new suspicious mass, architectu ral distortion or cluster of microcalcifications is seen. IMPRESSION: ACR BI-RADS CATEGORY 1: NEGATIVE There is no mammographic evidence of malignancy. A 1 year screening mammogram is recommended. The pa tient will receive written notification of the results. Approximately 10% of breast cancers are not detected with mammography. A negative mammographic report should not delay biopsy if a clinically suggestive mass is present. Lorri Riley M.D. ay/:12/01/2017 15:48:35 [employer]ble Machine Operator: Yasmine PORTILLO(R)(M), [facility] letter sent: Normal 1/2 BI-RADS Code: ACR BI-RADS Category 1: Negative
== END | disposition home or self-care (01) ==
LOC: C.MAMM 08:43
PROVIDERS: ATTEND Internal Medicine
DX: Z12.31 Encounter for screening mammogram for malignant neoplasm of breast (principal)

== ENCOUNTER → 2017-12-16 | Outpatient (CLI) | payer BC ==
[2017-12-16 13:57] LABS: ALT/SGPT 24 U/L (12-78); AST/SGOT 14 U/L (15-37); BLOOD UREA NITROGEN 19 mg/dl (7-18); CALCIUM 9.3 mg/dl (8.5-10.1); CARBON DIOXIDE 30 mmol/L (21-32); CHOLESTEROL 175 mg/dl (0-200); CREATININE 1.16 mg/dl (0.60-1.20); GLUCOSE 99 mg/dl (70-99); POTASSIUM 3.3 mmol/L (3.5-5.1); SODIUM 137 mmol/L (136-145)
[2017-12-16 13:59] LABS: HEMOGLOBIN A1C 5.9 % (4.5-5.6)
[2017-12-16 14:10] LABS: LDL CHOLESTEROL CALCULATED 105 mg/dl
== END | disposition home or self-care (01) ==
LOC: C.LAB1850 11:15
PROVIDERS: ATTEND Internal Medicine
DX: E87.6 Hypokalemia (principal); R73.03 Prediabetes; E03.9 Hypothyroidism, unspecified; E78.5 Hyperlipidemia, unspecified

== ENCOUNTER → 2017-12-23 | Outpatient (CLI) | payer BC ==
[2017-12-23 12:46] LABS: ALBUMIN 3.5 gm/dl (3.4-5.0)
== END | disposition home or self-care (01) ==
LOC: C.LAB1850 11:19
PROVIDERS: ATTEND Internal Medicine
DX: K83.1 Obstruction of bile duct (principal); E03.9 Hypothyroidism, unspecified

== ENCOUNTER → 2018-01-22 | Outpatient (CLI) | payer BC ==
[2018-01-25 15:04] LABS: ANA SCREEN TC 249X NEGATIVE (NEGATIVE)
== END | disposition home or self-care (01) ==
LOC: C.LAB1850 10:23
PROVIDERS: ATTEND Internal Medicine
DX: Z00.00 Encounter for general adult medical examination without abnormal findings (principal); I10 Essential (primary) hypertension; R73.09 Other abnormal glucose; R73.03 Prediabetes; E03.9 Hypothyroidism, unspecified

== ENCOUNTER 2021-03-04 11:24 | Inpatient (IN) ==
[2021-03-04] MEDS ORDERED: ADENOSINE IV SOLN 3 MG/ML 2 ML VIAL IV ONE ×2 (12:19→12:20)
--- NOTE | 2021-03-04 12:19 | Emergency Department Note ---
Impression & Plan Atrial fibrillation with rapid ventricular response, Anaplasmosis, Hypokalemia ED Provider Note INFORMANT: Patient ED PROVIDER(S): Nelson Lee MD CHIEF COMPLAINT: Flulike symptoms PLAN: Disposition: Admitted Condition: Good Outpatient prescription management: none Referral: None MEDICAL DECISION MAKING: Patient presented to emergency department complaining of flulike symptoms. She was moderately tachycardic in triage. Her initial ECG showed a sinus tachycardia. Her rate changed and she jumped up from the 180-200 range. This was a narrow complex. Vagal maneuvers had no effect. A repeat ECG was concerning for A. fib with rapid ventricular response. The patient has missed her last 3 days of metoprolol. She was given IV metoprolol and IV normal saline. She received a 5 mg, 5 mg, and 2.5 mg dose. The patient was still tachycardic but albeit improved. She was asymptomatic at that time. She was placed on a Cardizem drip. Her blood work revealed findings concerning for anaplasmosis. Lyme testing was negative. Covid testing negative. The patient was hypokalemic as well. She was given IV and oral potassium. The patient will need further management in the hospital. She was treated with IV doxycycline. Consultation was made with Dr. Paredes of the [facility]. He did asked for the patient to receive a dose of IV 1 g magnesium as well. This was ordered. Evaluated patient in the ER and admitted her for further management. Triage Nursing notes reviewed and agree them. Vital Signs: reviewed and remarkable for tachycardia Differential diagnosis: Viral syndrome, otitis, pharyngitis, pneumonia, influenza, meningitis, urinary tract infection, sepsis, bacteremia, as well as other pathologies. Diagnostics interpreted by me: ECG: Twelve-lead ECG #1 reveals a sinus tachycardia 138 bpm. Poor R wave progression noted. No ST elevation or depression. There is a normal axis and QRS. No PVCs. Twelve-lead ECG #2 reveals atrial fibrillation with rapid ventricular response at [address] segment depression. QRS duration normal. Normal axis. When compared to ECG #1 atrial fibrillation with RVR replaced sinus tachycardia. Cardiac Monitoring: Cardiac monitoring ordered by me: The patient was placed on continuous cardiac monitoring and observed. It revealed rapid atrial fibril lation at 154 bpm. Imaging studies: Deferred HPI: The patient is a 65 year old female who presents to the Emergency Room with complaints of dehydration and illness. This started 2 days ago and is persistent. The patient also notes the following associated symptoms, occasional headache, feeling feverish, chills. Patient also noted one episode of nausea and vomiting. The patient has found no relieving factors. Current pain is rated as 0/10. No Covid exposures. Patient is not immunized. Pt denies LOC, diaphoresis, visual changes, neck pain, chest pain, breathing difficulties, abdominal pain, back pain, melena, hematochezia, urinary symptoms, numbness, weakness, lymphadenopathy, rash, or other complaints. ROS: See above HPI for pertinent positives & negatives. A total of 10 systems reviewed and were otherwise negative. PAST MEDICAL HISTORY:See Below , hypertension PAST SURGICAL HISTORY:See Below, FAMILY HISTORY:See Below SOCIAL HISTORY:See Below, non-smoker HOME MEDICATIONS:See Below ALLERGIES:See Below VITALS:See Below PHYSICAL EXAMINATION: GENERAL: Awake, alert, well-appearing, in no distress HENT: Normocephalic, atraumatic. Oropharynx unremarkable. EYES: Normal conjunctiva. Sclera non-icteric. NECK: Inspection normal. Non-tender. Supple. No nuchal rigidity. FROM. No masses. RESPIRATORY: Clear to auscultation. No wheezes. No rales. Normal respiratory effort. CARDIAC: Tachycardic rate. Normal rhythm. No murmurs. No rubs. Extremities warm and well perfused. Pulses equal. No JVD. GI: Soft, non-distended. No tenderness to palpation. No rebound or guarding. No masses. RECTAL: Deferred. MUSCULOSKELETAL: Atraumatic. Chest examination reveals no tenderness. The back is symmetrical on inspection without obvious abnormality. There is no CVA tenderness to palpation. No joint edema. LOWER EXTREMITIES: Calves are equal size bilaterally and non-tender. No edema. No discoloration. NEURO: Normal sensorium. No sensory or motor deficits noted. SKIN: No rash or jaundice noted. CRITICAL CARE: I have personally spent greater than 45 minutes of critical care time in the direct management of this patient. This includes bedside care, interpretation of diagnostic studies, and testing, discussion with consultants, patient, and o ther required patient management activities. These minutes are in excess of all separately billable procedures. Nelson Lee MD Past Med/Surg History Medical History (Updated 03/04/21 @ 18:20 by Nelson Lee MD) Abnormal glucose Tubular adenoma of colon Surgical History H/O colonoscopy H/O oral surgery S/P cholecystectomy S/P ERCP Status post surgical removal of pilonidal cyst Family History Mother Hyperlipidemia Hypertension Pancreatic cancer Hypothyroidism Father Hypertension Lung cancer Brother Hypertension S/P CABG (coronary artery bypass graft) Uncle Lung cancer Prostate cancer Uncle Myocardial infarction Other Colorectal cancer Coronary heart disease Heart disease Denies family history of Ovarian cancer Breast cancer Social History Smoking Status: Never smoker Hx Alcohol Use: No Hx Substance Use: No Preferred Language: Danish Communication Ability: Effective 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 Beliefs That Will Affect Care: None marital status: Current Living Situation: Spouse current occupational status: retired Other Information That Helps Us Care for You: No Feels Safe at Home: Yes Safety Concerns: Feels Safe At This Time Childhood Exposure to Second-Hand Smoke: Yes Dental Care, Regularly: No Physical Activity Frequency: Daily 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 Seatbelt Use: sometimes Sunscreen Use: No Allergies Allergies Allergy/AdvReac Type Severity Reaction Status Date / Time Uvstoyi-Hgg-Txl Reductase Allergy Unknown ACHY Verified 03/04/21 12:59 Inhibitor HORTENSIA Inhibitors Allergy Verified 03/04/21 12:59 Home Meds Home Medications Medication Instructions Recorded Confirmed ciclopirox 8 % topical solution 1 appln TOPICAL UD PRN #1 ml 07/21/19 03/04/21 fluocinonide 0.05 % topical cream 1 appln TOPICAL BID PRN #1 gm 07/21/19 03/04/21 cholecalciferol (vitamin D3) 125 mcg PO QAM 03/04/21 03/04/21 [Vitamin D3] ezetimibe 10 mg PO QAM 03/04/21 03/04/21 levothyroxine 88 mcg PO QAM 03/04/21 03/04/21 metformin 750 mg PO BIDM 03/04/21 03/04/21 metoprolol succinate 150 mg PO QAM 03/04/21 03/04/21 potassium chloride 10 meq PO QAM 03/04/21 03/04/21 triamterene-hydrochlorothiazid 1 cap PO QAM 03/04/21 03/04/21 zinc 50 mg PO QAM 03/04/21 03/04/21 Results & Data (ED) Vital Signs Vital Signs - 24 hr 03/04/21 11:33 03/04/21 12:03 03/04/21 12:24 Temperature 36.0 C L Temperature Source Skin Pulse Rate 153 H 143 H 199 H Pulse Rate from SpO2 Sensor 142 H 183 H Respiratory Rate 18 24 16 Respiratory Effort / Characteristics Non-Labored Spontaneous Respiratory Depth Normal Respiratory Pattern Regular Blood Pressure 116/73 155/101 H Blood Pressure Mean 87 119 Blood Pressure Position Sitting Pulse Oximetry 95 95 95 Oxygen Delivery Method Room Air Sepsis Recent Fever Within 48 Hours No Sepsis New/Unexplained Change in Mental Status N/A Sepsis Action Taken by Nursing No Action Required 03/04/21 12:30 03/04/21 12:38 03/04/21 12:39 Temperature Temperature Source Pulse Rate 173 H 150 H 150 H Pulse Rate from SpO2 Sensor 172 H 145 H 136 H Respiratory Rate 22 28 H 18 Respiratory Effort / Characteristics Respiratory Depth Respiratory Pattern Blood Pressure 111/80 Blood Pressure Mean 90 Blood Pressure Position Pulse Oximetry 94 95 94 Oxygen Delivery Method Sepsis Recent Fever Within 48 Hours Sepsis New/Unexplained Change in Mental Status Sepsis Action Taken by Nursing 03/04/21 12:45 03/04/21 12:46 03/04/21 13:00 Temperature Temperature Source Pulse Rate 156 H 156 H 145 H Pulse Rate from SpO2 Sensor 151 H 142 H 136 H Respiratory Rate 20 20 19 Respiratory Effort / Characteristics Respiratory Depth Respiratory Pattern Blood Pressure 124/92 109/72 Blood Pressure Mean 102 84 Blood Pressure Position Pulse Oximetry 91 94 95 Oxygen Delivery Method Sepsis Recent Fever Within 48 Hours Sepsis New/Unexplained Change in Mental Status Sepsis Action Taken by Nursing 03/04/21 13:01 03/04/21 13:15 03/04/21 13:16 Temperature Temperature Source Pulse Rate 147 H 160 H 161 H Pulse Rate from SpO2 Sensor 151 H 161 H 157 H Respiratory Rate 17 16 15 Respiratory Effort / Characteristics Respiratory Depth Respiratory Pattern Blood Pressure 86/67 L Blood Pressure Mean 73 Blood Pressure Position Pulse Oximetry 93 97 97 Oxygen Delivery Method Sepsis Recent Fever Within 48 Hours Sepsis New/Unexplained Change in Mental Status Sepsis Action Taken by Nursing 03/04/21 13:30 03/04/21 13:31 03/04/21 13:45 Temperature Temperature Source Pulse Rate 168 H 159 H 170 H Pulse Rate from SpO2 Sensor 161 H 155 H 179 H Respiratory Rate 18 18 21 Respiratory Effort / Characteristics Respiratory Depth Respiratory Pattern Blood Pressure 103/78 92/72 L Blood Pressure Mean 86 78 Blood Pressure Position Pulse Oximetry 96 96 96 Oxygen Delivery Method Sepsis Recent Fever Within 48 Hours Sepsis New/Unexplained Change in Mental Status Sepsis Action Taken by Nursing 03/04/21 13:46 03/04/21 14:00 03/04/21 14:01 Temperature Temperature Source Pulse Rate 147 H 162 H 153 H Pulse Rate from SpO2 Sensor 146 H 172 H 161 H Respiratory Rate 21 19 22 Respiratory Effort / Characteristics Respiratory Depth Respiratory Pattern Blood Pressure 126/108 H Blood Pressure Mean 114 Blood Pressure Position Pulse Oximetry 95 96 95 Oxygen Delivery Method Sepsis Recent Fever Within 48 Hours Sepsis New/Unexplained Change in Mental Status Sepsis Action Taken by Nursing 03/04/21 14:15 03/04/21 14:16 03/04/21 14:20 Temperature Temperature Source Pulse Rate 185 H 186 H 185 H Pulse Rate from SpO2 Sensor 176 H 184 H 189 H Respiratory Rate 23 16 24 Respiratory Effort / Characteristics Respiratory Depth Respiratory Pattern Blood Pressure 154/109 H 137/96 Blood Pressure Mean 124 109 Blood Pressure Position Pulse Oximetry 98 95 96 Oxygen Delivery Method Sepsis Recent Fever Within 48 Hours Sepsis New/Unexplained Change in Mental Status Sepsis Action Taken by Nursing 03/04/21 14:30 03/04/21 14:31 03/04/21 14:45 Temperature Temperature Source Pulse Rate 149 H 155 H 145 H Pulse Rate from SpO2 Sensor 150 H 133 H 149 H Respiratory Rate 23 21 26 H Respiratory Effort / Characteristics Respiratory Depth Respiratory Pattern Blood Pressure 131/83 131/98 Blood Pressure Mean 99 109 Blood Pressure Position Pulse Oximetry 95 94 98 Oxygen Delivery Method Sepsis Recent Fever Within 48 Hours Sepsis New/Unexplained Change in Mental Status Sepsis Action Taken by Nursing 03/04/21 14:46 03/04/21 15:00 Temperature Temperature Source Pulse Rate 165 H 167 H Pulse Rate from SpO2 Sensor 146 H 162 H Respiratory Rate 24 26 H Respiratory Effort / Characteristics Respiratory Depth Respiratory Pattern Blood Pressure 160/98 H Blood Pressure Mean 118 Blood Pressure Position Pulse Oximetry 96 96 Oxygen Delivery Method Sepsis Recent Fever Within 48 Hours Sepsis New/Unexplained Change in Mental Status Sepsis Action Taken by Nursing Laboratory Data Result diagrams: 03/04/21 12:10 03/04/21 12:10 Lab Results 03/04/21 03/04/21 03/04/21 Range/Units 12:10 12:10 12:28 WBC 4.62 L (4.8-10.8) K/uL RBC 4.70 (4.2-5.4) M/uL Hgb 13.8 (12.0-16.0) g/dL Hct 39.2 (37-47) % MCV 83.4 (80-100) fL MCH 29.4 (25-34) pg MCHC 35.2 (32-36) g/dL RDW Std Deviation 40.5 (36.4-46.3) fL RDW Coeff of Kalyani 13.2 (11.5-14.5) % Plt Count 48 L (130-400) K/uL MPV 12.0 H (7.4-10.4) fL Immature Gran % (Auto) 0.2 % Neut % (Auto) 77.9 % Lymph % (Auto) 12.8 % [place] % (Auto) 8.9 % Eos % (Auto) 0.0 % Baso % (Auto) 0.2 % Neut # (Auto) 3.60 (1.4-6.5) K/uL Lymph # (Auto) 0.59 L (1.2-3.4) K/uL [place] # (Auto) 0.41 (0.11-0.59) K/uL Eos # (Auto) 0.00 (0-0.5) K/uL Baso # (Auto) 0.01 (0-0.2) K/uL Immature Gran # (Auto) 0.01 (0.00-0.02) K/uL Platelet Estimate Decreased L (Normal) Peripher Smr Path Cons Sodium 137 (136-145) mmol/L Potassium 2.8 L (3.5-5.1) mmol/L Chloride 101 (98-107) mmol/L Carbon Dioxide 25 (21-32) mmol/L Anion Gap 11.0 (3-11) BUN 19 H (7-18) mg/dl Creatinine 1.15 (0.6-1.2) mg/dl Est Cr Clr Drug Dosing 46.7 ml/min Est GFR ( Amer) 57.8 ml/min Est GFR (Non-Af Amer) 49.9 ml/min BUN/Creatinine Ratio 16.3 (10-20) Glucose 156 H (70-99) mg/dl Calcium 9.8 (8.5-10.1) mg/dl Magnesium 2.1 (1.8-2.4) mg/dl Total Bilirubin 3.0 H (0.2-1) mg/dl AST 66 H (15-37) U/L ALT 69 (12-78) U/L Alkaline Phosphatase 102 (45-117) U/L Troponin I < 0.015 (0-0.045) ng/ml Total Protein 7.0 (6.4-8.2) gm/dl Albumin 3.0 L (3.4-5.0) gm/dl Globulin 4.0 (2.5-4.0) gm/dl Albumin/Globulin Ratio 0.7 L (0.9-2) TSH 0.396 (0.300-4.500) uIu/ml Anaplasma Smear See Comment A Anaplasma Comment Pos for Anaplasma Lyme Disease IgG Ab Negative (Negative) Lyme Disease IgM Ab Negative (Negative) COVID-19 Eval Order SARS-CoV-2 (PCR) (Negative) 03/04/21 03/04/21 Range/Units 12:44 12:44 WBC (4.8-10.8) K/uL RBC (4.2-5.4) M/uL Hgb (12.0-16.0) g/dL Hct (37-47) % MCV (80-100) fL MCH (25-34) pg MCHC (32-36) g/dL RDW Std Deviation (36.4-46.3) fL RDW Coeff of Kalyani (11.5-14.5) % Plt Count (130-400) K/uL MPV (7.4-10.4) fL Immature Gran % (Auto) % Neut % (Auto) % Lymph % (Auto) % [place] % (Auto) % Eos % (Auto) % Baso % (Auto) % Neut # (Auto) (1.4-6.5) K/uL Lymph # (Auto) (1.2-3.4) K/uL [place] # (Auto) (0.11-0.59) K/uL Eos # (Auto) (0-0.5) K/uL Baso # (Auto) (0-0.2) K/uL Immature Gran # (Auto) (0.00-0.02) K/uL Platelet Estimate (Normal) Peripher Smr Path Cons Sodium (136-145) mmol/L Potassium (3.5-5.1) mmol/L Chloride (98-107) mmol/L Carbon Dioxide (21-32) mmol/L Anion Gap (3-11) BUN (7-18) mg/dl Creatinine (0.6-1.2) mg/dl Est Cr Clr Drug Dosing ml/min Est GFR ( Amer) ml/min Est GFR (Non-Af Amer) ml/min BUN/Creatinine Ratio (10-20) Glucose (70-99) mg/dl Calcium (8.5-10.1) mg/dl Magnesium (1.8-2.4) mg/dl Total Bilirubin (0.2-1) mg/dl AST (15-37) U/L ALT (12-78) U/L Alkaline Phosphatase (45-117) U/L Troponin I (0-0.045) ng/ml Total Protein (6.4-8.2) gm/dl Albumin (3.4-5.0) gm/dl Globulin (2.5-4.0) gm/dl Albumin/Globulin Ratio (0.9-2) TSH (0.300-4.500) uIu/ml Anaplasma Smear Anaplasma Comment Lyme Disease IgG Ab (Negative) Lyme Disease IgM Ab (Negative) COVID-19 Eval Order Covid19 at [facility] SARS-CoV-2 (PCR) NEGATIVE (Negative) Administered Medications Acetaminophen (Acetaminophen 325 Mg Tab) 650 mg PO Q4H PRN PRN Reason: Pain or Fever Stop: 04/03/21 16:52 Last Admin: 03/04/21 17:25 Dose: 650 mg Documented by: [id number] Sodium Chloride (Nss 1000ml) 1,000 mls @ 125 mls/hr IV .Q8H STA Stop: 03/04/21 21:17 Last Admin: 03/04/21 13:43 Dose: 125 mls/hr Documented by: [id number] Diltiazem HCl 125 mg/ Dextrose 125 mls @ 5 mls/hr IV .Q24H MUMTAZ; Protocol Stop: 04/03/21 14:29 Last Titration: 03/04/21 18:09 Dose: 15 mg/hr, 15 mls/hr Documented by: [id number] Cosigned by: [id number] Titration: 03/04/21 17:12 Dose: 10 mg/hr, 10 mls/hr Documented by: [id number] Cosigned by: [id number] Admin: 03/04/21 15:35 Dose: 5 mg/hr, 5 mls/hr Documented by: [id number] Cosigned by: [id number] Potassium Chloride/Sodium Chloride (Normal Saline W/20 Meq Kcl) 20 meq in 1,000 mls @ 100 mls/hr IV .Q10H MUMTAZ Stop: 04/03/21 17:14 Last Admin: 03/04/21 17:40 Dose: 100 mls/hr Documented by: [id number] Insulin Aspart (Insulin Aspart 100 Units/Ml 3 Ml Pen) 0 units SC ACHS MUMTAZ Stop: 04/03/21 16:52 Last Admin: 03/04/21 18:08 Dose: Not Given Documented by: [id number] Cosigned by: [id number] Discontinued Medications Adenosine (Adenosine Iv Soln 3 Mg/Ml 2 Ml Vial) Confirm Administered Dose 6 mg IV .STK-MED ONE Stop: 03/04/21 12:20 Last Admin: 03/04/21 12:40 Dose: Not Given Documented by: [id number] Adenosine (Adenosine Iv Soln 3 Mg/Ml 2 Ml Vial) Confirm Administered Dose 6 mg IV .STK-MED ONE Stop: 03/04/21 12:21 Last Admin: 03/04/21 12:40 Dose: Not Given Documented by: [id number] Diltiazem HCl (Diltiazem Hcl 5 Mg/Ml 5 Ml Vial) 20 mg IV NOW STA Stop: 03/04/21 15:32 Last Admin: 03/04/21 15:35 Dose: 20 mg Documented by: [id number] Cosigned by: [id number] Sodium Chloride (Nss 1000ml) 1,000 mls @ 999 mls/hr IV .Q1H1M STA Stop: 03/04/21 12:54 Last Infusion: 03/04/21 15:23 Dose: 0 mls/hr Documented by: [id number] Admin: 03/04/21 13:24 Dose: 999 mls/hr Documented by: [id number] Infusion: 03/04/21 13:23 Dose: 0 mls/hr Documented by: [id number] Admin: 03/04/21 12:40 Dose: 999 mls/hr Documented by: [id number] Doxycycline Hyclate 100 mg/ (Dextrose) 110 mls @ 50 mls/hr IV NOW STA Stop: 03/04/21 15:21 Last Infusion: 03/04/21 17:22 Dose: 0 mls/hr Documented by: [id number] Admin: 03/04/21 14:55 Dose: 50 mls/hr Documented by: [id number] Sodium Chloride (Nss 1000ml) 1,000 mls @ 999 mls/hr IV .Q1H1M ONE Stop: 03/04/21 14:18 Last Infusion: 03/04/21 15:23 Dose: 0 mls/hr Documented by: [id number] Admin: 03/04/21 13:28 Dose: 999 mls/hr Documented by: [id number] Potassium Chloride (K Kaden / Wtr) 10 meq in 100 mls @ 100 mls/hr IV Q1H MUMTAZ Stop: 03/04/21 15:29 Last Infusion: 03/04/21 15:55 Dose: 0 mls/hr Documented by: [id number] Admin: 03/04/21 14:51 Dose: 100 mls/hr Documented by: [id number] Infusion: 03/04/21 14:46 Dose: 100 mls/hr Documented by: [id number] Admin: 03/04/21 13:46 Dose: 100 mls/hr Documented by: [id number] Magnesium Sulfate/Dextrose (Magnesium Sulfate / D5w) 1 gm in 100 mls @ 100 mls/hr IV NOW STA Stop: 03/04/21 15:43 Last Infusion: 03/04/21 16:56 Dose: 0 mls/hr Documented by: [id number] Admin: 03/04/21 15:35 Dose: 100 mls/hr Documented by: [id number] Metoprolol Tartrate (Metoprolol Tartrate 1 Mg/Ml Vial) Confirm Administered Dose 5 mg IV .STK-MED ONE Stop: 03/04/21 12:30 Last Admin: 03/04/21 12:38 Dose: 5 mg Documented by: [id number] Metoprolol Tartrate (Metoprolol Tartrate 1 Mg/Ml Vial) 5 mg IV Q5M PRN PRN Reason: Tachycardia Stop: 04/03/21 12:28 Last Admin: 03/04/21 14:35 Dose: 2.5 mg Documented by: [id number] Admin: 03/04/21 12:48 Dose: 5 mg Documented by: [id number] Potassium Chloride (Potassium Chloride Crtab 20 Meq Tabcr) 40 meq PO NOW STA Stop: 03/04/21 13:20 Last Admin: 03/04/21 13:48 Dose: 40 meq Documented by: [id number] Discharge Plan Visit Data Chief Complaint: Dehydration Stated Complaint: DEHYDRATED ED Provider: Nelson Lee Discharge Problem: Atrial fibrillation with rapid ventricular response, Anaplasmosis, Hypokalemia Patient Disposition: Admitted As Inpatient Discharge Instructions Interventions: ED Discharge Assessment Last Done: 03/04/21 16:12
[2021-03-04] MEDS ORDERED: METOPROLOL TARTRATE 1 MG/ML VIAL IV ONE (12:29)
[2021-03-04] MEDS: SODIUM CHLORIDE 0.9% 1000ML 1,000 ML IV STA ×2 (12:40→13:24)
[2021-03-04] MEDS: METOPROLOL TARTRATE 1 MG/ML VIAL IV PRN ×3 (12:48→14:35)
[2021-03-04 12:56] LABS: Alanine Aminotransferase 69 U/L (12-78); Aspartate Aminotransferase 66 U/L (15-37); BUN Creatinine Ratio 16.3 (10-20); Blood Urea Nitrogen 19 mg/dl (7-18); Calcium 9.8 mg/dl (8.5-10.1); Carbon Dioxide 25 mmol/L (21-32); Chloride 101 mmol/L (98-107); Creatinine Clr Calc Pharmacy 46.7 ml/min; Est GFR (African American) 57.8 ml/min; Est GFR (Non-African American) 49.9 ml/min; Glucose 156 mg/dl (70-99); Magnesium 2.1 mg/dl (1.8-2.4); Potassium 2.8 mmol/L (3.5-5.1); Sodium 137 mmol/L (136-145)
[2021-03-04 13:06] LABS: Albumin Globulin Ratio 0.7 (0.9-2); Alkaline Phosphatase 102 U/L (45-117); Thyroid Stimulating Hormone 0.396 uIu/ml (0.300-4.500); Troponin I < 0.015 ng/ml (0-0.045)
[2021-03-04 13:08] LABS: Hematocrit (blood only) 39.2 % (37-47); Hemoglobin 13.8 g/dL (12.0-16.0); Mean Corpuscular Hemoglobin 29.4 pg (25-34); Mean Corpuscular Hgb Conc 35.2 g/dL (32-36); Mean Corpuscular Volume 83.4 fL (80-100); Platelet Count 48 K/uL (130-400); RDW Coefficient of Variation 13.2 % (11.5-14.5); RDW Standard Deviation 40.5 fL (36.4-46.3); White Blood Count 4.62 K/uL (4.8-10.8)
[2021-03-04 13:09] LABS: Basophils # (auto) 0.01 K/uL (0-0.2); Basophils % (auto) 0.2 %; Immature Granulocytes # (auto) 0.01 K/uL (0.00-0.02); Immature Granulocytes % (auto) 0.2 %; Lymphocytes # (auto) 0.59 K/uL (1.2-3.4); Lymphocytes % (auto) 12.8 %; Monocytes # (auto) 0.41 K/uL (0.11-0.59); Monocytes % (auto) 8.9 %; Neutrophils % (auto) 77.9 %; Platelet Estimate Decreased (Normal)
[2021-03-04] MEDS ORDERED: DOXYCYCLINE HYCLATE 100 MG in DEXTROSE 5% 100 ML IV STA (13:10)
[2021-03-04 13:11] LABS: Anaplasmosis Smear(Rpt to DOH) Pos for Anaplasma
[2021-03-04] MEDS ORDERED: SODIUM CHLORIDE 0.9% 1000ML 1,000 ML IV STA (13:18)
[2021-03-04] MEDS ORDERED: SODIUM CHLORIDE 0.9% 1000ML 1,000 ML IV ONE (13:18)
[2021-03-04] MEDS ORDERED: POTASSIUM CHLORIDE CRTAB 20 MEQ TABCR PO STA (13:19)
[2021-03-04] MEDS: POTASSIUM CHLORIDE / WTR 10 MEQ/100 ML PLCT IV SCH ×2 (13:46→14:51)
[2021-03-04 14:21] LABS: Lyme Ab IgG w/WB Rflx Negative (Negative); Lyme Ab IgM w/WB Rflx Negative (Negative)
[2021-03-04] MEDS ORDERED: STAT IV Infusion **Titration per Protocol STA (14:29)
[2021-03-04] MEDS ORDERED: MAGNESIUM SULFATE / D5W 1 GM/100 ML BAG IV STA (14:44)
--- NOTE | 2021-03-04 14:55 | History & Physical Report ---
Date of Service March 04, 2021 Assessment & Plan (1) Atrial fibrillation with rapid ventricular response: Patient presented with 2 days of prodromal illness where she was not eating and drinking well. It is unknown whether she took her metoprolol. She has a rapid narrow complex rhythm that at 1 point was sinus tach but evolved into atrial fibrillation. She was given a bolus of 20 mg of diltiazem and was placed on a diltiazem drip and was given additional magnesium in the ER. 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 patient initiated on IV doxycycline this will be continued (3) Prediabetes: Patient typically takes Metformin XR 750 twice daily this will be held she will be on a carbohydrate conservative diet and placed on insulin sliding scale (4) Hypertension: Patient's hypertension is typically treated with metoprolol or Cardizem is now on for rate control likely will try to gravitate towards metoprolol to re sume her home medications as this will also be a rate controlling medication for her (5) Hypothyroidism: Synthroid dose is 88 mcg this will be continued TSH was checked and found to be normal on presentation (6) DVT prophylaxis: SCDs will be used at this time with her low platelet count concern for chemoprophylaxis for following a coagulation reaction fibrillation. We may reconsider this if she remains in atrial fibrillation for more than 1 day and her platelet count rebounds with treatment of her anaplasmosis History of Present Illness Primary Care Provider: Mejia Bartholomew MD 65 year old female who presented to the Emergency Room with complaints of dehydration and illness. This started 2 days prior to presentation. The patient has complained of generalized headache, feeling feverish, chills. Pat ient also noted one episode of nausea and vomiting. Patient subsequently did have a vomiting episode in the emergency department. Emergency department she developed sinus tachycardia with a significantly fast rate possibly atrial fibrillation. She was given metoprolol IV x3, 5, 5, 2.5, then was initiated on Cardizem drip for rate control. She had markedly discordant laboratories with mild leukopenia and thrombocytopenia and comments of anaplasmosis identified on CBC. She is found to be profoundly hypokalemic with a potassium of 2.8 magnesium was 2.1 total bili of 3 and AST of 66. Incidental testing for Lyme disease and Covid is negative No Covid exposures. Patient is not immunized. Allergies Allergy/AdvReac Type Severity Reaction Status Date / Time Sxgooeg-Szj-Vnk Reductase Allergy Unknown ACHY Verified 03/04/21 12:59 Inhibitor HORTENSIA Inhibitors Allergy Verified 03/04/21 12:59 Home Medications Medication Instructions Recorded Confirmed Type ciclopirox 8 % topical solution 1 appln TOPICAL UD PRN #1 ml 07/21/19 03/04/21 History fluocinonide 0.05 % topical cream 1 appln TOPICAL BID PRN #1 gm 07/21/19 03/04/21 History cholecalciferol (vitamin D3) 125 mcg PO QAM 03/04/21 03/04/21 History [Vitamin D3] ezetimibe 10 mg PO QAM 03/04/21 03/04/21 History levothyroxine 88 mcg PO QAM 03/04/21 03/04/21 History metformin 750 mg PO BIDM 03/04/21 03/04/21 History metoprolol succinate 150 mg PO QAM 03/04/21 03/04/21 History potassium chloride 10 meq PO QAM 03/04/21 03/04/21 History triamterene-hydrochlorothiazid 1 cap PO QAM 03/04/21 03/04/21 History zinc 50 mg PO QAM 03/04/21 03/04/21 History Past Med/Surg History Medical History (Updated 03/04/21 @ 15:04 by Saturnino Paredes MD) Abnormal glucose Tubular adenoma of colon Surgical History H/O colonoscopy H/O oral surgery S/P cholecystectomy S/P ERCP Status post surgical removal of pilonidal cyst Family History Mother Hyperlipidemia Hypertension Pancreatic cancer Hypothyroidism Father Hypertension Lung cancer Brother Hypertension S/P CABG (coronary artery bypass graft) Uncle Lung cancer Prostate cancer Uncle Myocardial infarction Other Colorectal cancer Coronary heart disease Heart disease Denies family history of Ovarian cancer Breast cancer Social History Smoking Status: Never smoker Hx Alcohol Use: No Hx Substance Use: No Preferred Language: Malaysian Communication Ability: Effective marital status: Current Living Situation: Spouse current occupational status: retired Feels Safe at Home: Yes Childhood Exposure to Second-Hand Smoke: Yes Dental Care, Regularly: No Physical Activity Frequency: Daily 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 Physical Exam Physical Exam: The patient appeared ill with injected conjunctiva and chills in the ER Vital signs as documented. Head exam is normocephalic atraumatic Neck is without JVD, thyromegaly, or carotid bruits. Lungs are clear to auscultation, no focal loss of breath sounds Cardiac exam, irregular and tachycardic. No murmurs, rubs or gallops. Abdominal exam reveals normal bowel sounds, soft non tender, no masses Extremities are nonedematous and both pedal pulses are present Neurologic exam is alert and oriented, no focal loss of strength or sensation Skin is without bruises or rashes Psychologically is without concerns for anxiety or depression Results & Data Results & Data ([facility]) Vital Signs (Past 12 Hours) Vital Signs Temp Pulse Resp BP Pulse Ox 03/04/21 12:45 156 H 20 124/92 91 03/04/21 12:39 150 H 18 94 03/04/21 12:38 150 H 28 H 111/80 95 03/04/21 12:30 173 H 22 94 03/04/21 12:24 199 H 16 155/101 H 95 03/04/21 12:03 143 H 24 95 03/04/21 11:33 96.8 F L 153 H 18 116/73 95 Ultra cardiogram March 04, 2012 await p.m. looks to be sinus tachycardia at this time very regular rhythm electrocardiogram 03/04 at 12:24 PM narrow complex irregular tachycardic rhythm rate 183 irregular appearing to be atrial fibrillation PG Care Time/CCT Total # of Minutes Spent Total Time Spent with Patient: Total time spent is greater than 50% in coordination of care (as documented) at patient's floor/unit and/or counseling patient: Coding Level of Care Code 86609 Initial Inpt Care Lvl 3 Diagnoses Atrial fibrillation with rapid ventricular response I48.91 Anaplasmosis A77.49 Prediabetes R73.03 Hypertension I10 Hypothyroidism E03.9 DVT prophylaxis Z29.9
[2021-03-04] MEDS ORDERED: dilTIAZem HCl 5 MG/ML 5 ML VIAL IV STA (15:31)
[2021-03-04] MEDS: dilTIAZem HCL 125 MG in DEXTROSE 5% 100 ML IV SCH (15:35)
[2021-03-04] MEDS ORDERED: CARBOHYDRATES FOR HYPOGLYCEMIA PO PRN (16:53)
[2021-03-04] MEDS ORDERED: POLYETHYLENE (MIRALAX) 17 GM PACK PO PRN (16:53)
[2021-03-04] MEDS ORDERED: ONDANSETRON INJ 2 MG/ML 2 ML VIAL IV PRN (16:53)
[2021-03-04] MEDS ORDERED: GLUCAGON FOR INJ 1 MG VIAL SQ PRN (16:53)
[2021-03-04] MEDS ORDERED: GLUCOSE 40% GEL 15 GM TUBE PO PRN (16:53)
[2021-03-04] MEDS ORDERED: GLUCOSE 10 TAB/TUBE PO PRN (16:53)
[2021-03-04] MEDS ORDERED: DEXTROSE 50% 50 ML SYRINGE IV PRN (16:53)
[2021-03-04] MEDS ORDERED: METOPROLOL TARTRATE 1 MG/ML VIAL IV PRN (16:53)
[2021-03-04] MEDS ORDERED: dilTIAZem HCL 125 MG in DEXTROSE 5% 100 ML IV SCH (16:53)
[2021-03-04] MEDS ORDERED: ACETAMINOPHEN 325 MG TAB PO PRN (16:53)
[2021-03-04] MEDS: NSS + 20MEQ KCL 20 MEQ/1,000 ML BAG IV SCH (17:40)
--- NOTE | 2021-03-04 18:01 | Electrocardiogram Report ---
Test Reason : Blood Pressure : / mmHG Vent. Rate : 138 BPM Atrial Rate : 138 BPM P-R Int : 136 ms QRS Dur : 072 ms QT Int : 284 ms P-R-T Axes : 054 -20 096 degrees QTc Int : 430 ms Sinus tachycardia Poor R wave progression, consider anterior IN vs. lead placement vs. LVH Abnormal ECG When compared with ECG of 28-MAY-2017 16:42, No significant change was found Confirmed by Jaciel Lopez ([id number]) on 03/04/2021 6:01:13 PM Referred By: Confirmed By:Janusz Lopez
--- NOTE | 2021-03-04 18:03 | Electrocardiogram Report ---
Test Reason : Blood Pressure : / mmHG Vent. Rate : 183 BPM Atrial Rate : 091 BPM P-R Int : 000 ms QRS Dur : 076 ms QT Int : 286 ms P-R-T Axes : 000 -15 148 degrees QTc Int : 499 ms Poor data quality, interpretation may be adversely affected Likely atrial fibrillation Abnormal ECG When compared with ECG of 04-MAR-2021 12:24, (unconfirmed) Inverted T waves have replaced nonspecific T wave abnormality in Anterior leads Confirmed by Jaciel Lopez ([id number]) on 03/04/2021 6:03:37 PM Referred By: Confirmed By:Janusz Lopez
--- NOTE | 2021-03-04 18:04 | Electrocardiogram Report ---
Test Reason : Blood Pressure : / mmHG Vent. Rate : 196 BPM Atrial Rate : 197 BPM P-R Int : 000 ms QRS Dur : 078 ms QT Int : 272 ms P-R-T Axes : 000 -09 151 degrees QTc Int : 491 ms Poor data quality, interpretation may be adversely affected Atrial fibrillation with rapid ventricular response with premature ventricular or aberrantly conducte d complexes Abnormal ECG When compared with ECG of 04-MAR-2021 12:08, (unconfirmed) Atrial fibrillation has replaced Sinus rhythm T wave inversion now evident in Anterior leads Confirmed by Jaciel Lopez ([id number]) on 03/04/2021 6:04:23 PM Referred By: Confirmed By:Janusz Lopez
[2021-03-04] MEDS: INSULIN ASPART 100 UNITS/ML 3 ML PEN SC SCH ×2 (18:08→21:00)
[2021-03-04] MEDS ORDERED: SODIUM CHLORIDE 0.9% 1000ML 1,000 ML IV SCH (19:45)
[2021-03-04] MEDS: METOPROLOL TARTRATE 50 MG TAB PO SCH (19:49)
[2021-03-04] MEDS: DOXYCYCLINE HYCLATE 100 MG in DEXTROSE 5% 100 ML IV SCH (21:55)
[2021-03-05] MEDS: dilTIAZem HCL 125 MG in DEXTROSE 5% 100 ML IV SCH (02:25)
[2021-03-05] MEDS: NSS + 20MEQ KCL 20 MEQ/1,000 ML BAG IV SCH ×2 (04:02→14:15)
[2021-03-05] MEDS: LEVOTHYROXINE SODIUM 88 MCG TABLET PO SCH (05:46)
[2021-03-05 06:39] LABS: Hematocrit (blood only) 35.3 % (37-47); Mean Corpuscular Hemoglobin 28.8 pg (25-34); Mean Corpuscular Volume 84.9 fL (80-100); RDW Coefficient of Variation 13.7 % (11.5-14.5); RDW Standard Deviation 42.9 fL (36.4-46.3); Red Blood Count 4.16 M/uL (4.2-5.4); White Blood Count 3.17 K/uL (4.8-10.8)
[2021-03-05 06:55] LABS: Mean Platelet Volume 11.6 fL (7.4-10.4); Platelet Count 50 K/uL (130-400)
[2021-03-05 07:26] LABS: Blood Urea Nitrogen 17 mg/dl (7-18); Calcium 8.7 mg/dl (8.5-10.1); Carbon Dioxide 25 mmol/L (21-32); Chloride 114 mmol/L (98-107); Creatinine Clr Calc Pharmacy 70.7 ml/min; Est GFR (African American) 95.4 ml/min; Est GFR (Non-African American) 82.3 ml/min; Glucose 101 mg/dl (70-99); Magnesium 2.2 mg/dl (1.8-2.4); Potassium 3.7 mmol/L (3.5-5.1); Sodium 144 mmol/L (136-145); Troponin I < 0.015 ng/ml (0-0.045)
[2021-03-05 07:36] LABS: Estimated Average Glucose 126 mg/dl
[2021-03-05] MEDS ORDERED: PERFLUTREN LIPID MICROSPHERE (DEFINITY) IV ONE (07:55)
[2021-03-05] MEDS: INSULIN ASPART 100 UNITS/ML 3 ML PEN SC SCH ×4 (08:17→23:56)
[2021-03-05] MEDS: METOPROLOL TARTRATE 50 MG TAB PO SCH ×2 (08:24→20:44)
[2021-03-05] MEDS: EZETIMIBE 10 MG TABLET PO SCH (08:24)
[2021-03-05] MEDS: DOXYCYCLINE HYCLATE 100 MG in DEXTROSE 5% 100 ML IV SCH ×2 (08:25→20:44)
--- NOTE | 2021-03-05 11:22 | XCELERA ---
[id number]
--- NOTE | 2021-03-05 12:04 | Electrocardiogram Report ---
Test Reason : Blood Pressure : / mmHG Vent. Rate : 080 BPM Atrial Rate : 080 BPM P-R Int : 132 ms QRS Dur : 078 ms QT Int : 416 ms P-R-T Axes : 037 -12 026 degrees QTc Int : 479 ms Normal sinus rhythm Normal ECG When compared with ECG of 04-MAR-2021 12:24, ST no longer depressed in Anterolateral leads T wave inversion no longer evident in Lateral leads Confirmed by Jaciel Lopez ([id number]) on 03/05/2021 12:04:22 PM Referred By: REFERRED SELF Confirmed By:Janusz Lopez
--- NOTE | 2021-03-05 14:01 | Hospitalist Progress Note ---
Date of Service March 05, 2021 Assessment & Plan (1) Atrial fibrillation with rapid ventricular response: Presented in sinus tach, then went into afib around 12:30pm on 03/05. Converted back out of afib at 10:00pm, and none since. Chads-Vasc is a soft 4 (barely counts for age, female is a soft point, pre-diabetic, & HTN). This study (https://www.ahajournals.org/doi/full/10.1161/CIRCULATIONAHA.119.873906) would indicate anticoagulation might not be a bad idea, but given her low platelets, I think we should defer at this time. - TTE on 03/05 was normal. - Return to home Toprol XL starting tomorrow - Consider Holter monitor on discharge as she really didn't feel specific afib- related symptoms - Defer anticoagulation for now (2) Anaplasmosis: Anaplasmosis infection identified on admission blood smear. Thrombocytopenia noted down to 50k; likely to due the infection. Peripheral smear noted no platelet abnormalities. Bilirubin and AST also noted to be high. - Continue doxycycline 100 mg IV BID - Monitor platelets and LFTs with treatment (3) Prediabetes: A1c was 6.0% this admission and prior checks. - Hold metformin - Sliding scale insulin (4) Hypertension: BP today is 125/75. - Return to home beta-bebeto as above - Holding HCTZ-triamterene for now (5) Hypothyroidism: TSH was 0.4 on admission. - Continue home Synthroid 88 mcg (6) DVT prophylaxis: SCDs - Holding heparin for low platelets Admission and Anticipated Discharge Date Admission Date: March 04, 2021 Subjective Feeling much better today. No fevers overnight. No shortness of breath or chest pain. No arthralgias. Reports no fevers/chills, chest pain, shortness of breath, abdominal pain, nausea, or vomiting. Physical Exam Constitutional: WD/WN, vitals as above Eyes: EOM intact bilaterally; no conjunctival abnormality ENMT: external ear and nose normal, oropharynx normal Neck: trachea midline, no thyromegaly normal visual inspection Respiratory: normal respiratory effort, lungs clear to auscultation no respiratory distress Cardiovascular: RRR, no murmur, no edema Gastrointestinal (Abdomen): Inspection/Auscultation: abdomen normal to inspection; abdomen not distended Musculoskeletal: no cyanosis or clubbing, extremities motor strength 5/5 Skin: no rashes, warm and dry Neurologic: moves all extremities and awake Psychiatric: Orientation: alert, oriented to person and cooperative Results & Data Results & Data ([facility]) Vital Signs (Past 12 Hours) Vital Signs Temp Pulse Pulse Resp BP Pulse Ox 03/05/21 11:02 37.1 C 78 18 122/77 96 03/05/21 09:01 80 03/05/21 08:20 87 18 112/72 95 03/05/21 08:04 36.5 C 82 16 123/74 98 03/05/21 04:00 36.5 C 82 19 107/69 97 PG Care Time/CCT Total # of Minutes Spent Total Time Spent with Patient: Total time spent is greater than 50% in coordination of care (as documented) at patient's floor/unit and/or counseling patient: Coding Level of Care Code 86639 Subseq Hosp Care Lvl 3 Diagnoses Atrial fibrillation with rapid ventricular response I48.91 Anaplasmosis A77.49 Prediabetes R73.03 Hypertension I10 Hypothyroidism E03.9 DVT prophylaxis Z29.9
[2021-03-06] MEDS: LEVOTHYROXINE SODIUM 88 MCG TABLET PO SCH (05:33)
[2021-03-06 06:34] LABS: Albumin Level 2.5 gm/dl (3.4-5.0); BUN Creatinine Ratio 22.2 (10-20); Calcium 8.4 mg/dl (8.5-10.1); Creatinine Clr Calc Pharmacy 66.6 ml/min; Est GFR (African American) 83.3 ml/min; Est GFR (Non-African American) 71.9 ml/min; Magnesium 2.1 mg/dl (1.8-2.4); Potassium 3.5 mmol/L (3.5-5.1)
[2021-03-06 06:52] LABS: Hematocrit (blood only) 35.3 % (37-47); Hemoglobin 11.9 g/dL (12.0-16.0); Mean Corpuscular Hemoglobin 28.7 pg (25-34); Mean Corpuscular Hgb Conc 33.7 g/dL (32-36); Mean Corpuscular Volume 85.1 fL (80-100); Mean Platelet Volume 11.2 fL (7.4-10.4); Platelet Count 82 K/uL (130-400); RDW Coefficient of Variation 14.2 % (11.5-14.5); RDW Standard Deviation 44.4 fL (36.4-46.3); Red Blood Count 4.15 M/uL (4.2-5.4); White Blood Count 4.21 K/uL (4.8-10.8)
[2021-03-06 06:56] LABS: Albumin Globulin Ratio 0.8 (0.9-2); Bilirubin,Total 0.8 mg/dl (0.2-1); Globulin 3.2 gm/dl (2.5-4.0); Total Protein 5.7 gm/dl (6.4-8.2)
[2021-03-06] MEDS: EZETIMIBE 10 MG TABLET PO SCH (07:27)
[2021-03-06 07:33] LABS: Basophils # (auto) 0.06 K/uL (0-0.2); Basophils % (auto) 1.4 %; Eosinophils # (auto) 0.06 K/uL (0-0.5); Eosinophils % (auto) 1.4 %; Immature Granulocytes # (auto) 0.02 K/uL (0.00-0.02); Immature Granulocytes % (auto) 0.5 %; Lymphocytes # (auto) 2.35 K/uL (1.2-3.4); Lymphocytes % (auto) 55.8 %; Monocytes # (auto) 0.45 K/uL (0.11-0.59); Monocytes % (auto) 10.7 %; Neutrophils # (auto) 1.27 K/uL (1.4-6.5); Neutrophils % (auto) 30.2 %
[2021-03-06] MEDS: DOXYCYCLINE HYCLATE 100 MG in DEXTROSE 5% 100 ML IV SCH (07:34)
[2021-03-06] MEDS: INSULIN ASPART 100 UNITS/ML 3 ML PEN SC SCH ×2 (08:39→12:18)
[2021-03-06] MEDS ORDERED: METOPROLOL SUCC 50MG EXT REL TAB PO SCH (09:00)
[2021-03-06] MEDS: POTASSIUM CHLORIDE CRTAB 20 MEQ TABCR PO STA ×2 (12:15→12:58)
[2021-03-06] MEDS ORDERED: PREGABALIN 25 MG CAP PO ONE (12:27)
--- NOTE | 2021-03-06 12:52 | Electrocardiogram Report ---
Test Reason : Blood Pressure : / mmHG Vent. Rate : 080 BPM Atrial Rate : 080 BPM P-R Int : 144 ms QRS Dur : 080 ms QT Int : 402 ms P-R-T Axes : 036 -18 014 degrees QTc Int : 463 ms Normal sinus rhythm Normal ECG When compared with ECG of 05-MAR-2021 05:53, No significant change was found Confirmed by Jaciel Lopez ([id number]) on 03/06/2021 12:51:49 PM Referred By: REFERRED SELF Confirmed By:Janusz Lopez
--- NOTE | 2021-03-06 14:39 | Cardiology Consultation ---
Date of Consultation March 06, 2021 Assessment & Plan (1) Atrial fibrillation with rapid ventricular response: The patient presented with rapid atrial fibrillation. However, she was quite sick at the time. With some improvement in her clinical condition she converted back to sinus rhythm. There is no history of atrial fibrillation. She does not describe symptoms consistent with prior episodes of atrial fibrillation. Her echocardiogram was essentially normal in this puts her in a category of patients who have a lower likelihood of recurrent atrial fibrillation. She does have hypertension. She is 65 years old. It is unclear whether she has occult atrial fibrillation at times whether she will have additional episodes of atrial fibrillation. According to the guidelines, this episode would be sufficient to recommend systemic anticoagulation. Her chads Vasc score is high enough that she would likely benefit from systemic anticoagulation for stroke risk reduction. However, using shared decision-making we elected to defer anticoagulation currently. She has a smart watch at home and will monitor herself for elevated heart rates or symptoms of palpitation. I think there is a good likelihood that this was precipitated by her acute illness. Certainly she has the substrate for additional episodes of atrial fibrillation and we should have high index of suspicion for recurrent episodes in a low threshold for instituting anticoagulation in the future. History of Present Illness Reason for Consultation: Atrial fibrillation Requesting Physician: Susi Attending Physician: Sherry Goldman MD History of Present Illness The patient is a 65-year-old woman without a known history of cardiac disease who was admitted with systemic symptoms of fever, tachycardia and gastrointestinal disturbance. She was diagnosed with anaplasmosis. At the time of her admission she was noted to be in atrial fibrillation with rapid ventricular response. With some volume resuscitation and improvement in her clinical condition she converted back to a sinus rhythm. The patient had been aware of some tachycardia and palpitations. However, she attributed this to her acute illness. He states that normally being she does not have symptoms of palpitations. She has not been aware of elevated heart rates outside of this admission. 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 She does report having some mild dyspnea at times that she attributes to being overweight and somewhat out of shape. However, this is not limiting. She has no exertional chest pain. She did not report dizziness or lightheadedness. She cannot recall an episode of syncope. Allergies Allergy/AdvReac Type Severity Reaction Status Date / Time Rwvinad-Owt-Fdd Reductase Allergy Unknown ACHY Verified 03/04/21 12:59 Inhibitor HORTENSIA Inhibitors Allergy Verified 03/04/21 12:59 Home Medications Medication Instructions Recorded Confirmed Type ciclopirox 8 % topical solution 1 appln TOPICAL UD PRN #1 ml 07/21/19 03/04/21 H istory fluocinonide 0.05 % topical cream 1 appln TOPICAL BID PRN #1 gm 07/21/19 03/04/21 History cholecalciferol (vitamin D3) 125 mcg PO QAM 03/04/21 03/04/21 History [Vitamin D3] ezetimibe 10 mg PO QAM 03/04/21 03/04/21 History levothyroxine 88 mcg PO QAM 03/04/21 03/04/21 History metformin 750 mg PO BIDM 03/04/21 03/04/21 History metoprolol succinate 150 mg PO QAM 03/04/21 03/04/21 History potassium chloride 10 meq PO QAM 03/04/21 03/04/21 History triamterene-hydrochlorothiazid 1 cap PO QAM 03/04/21 03/04/21 History zinc 50 mg PO QAM 03/04/21 03/04/21 History Patient History Medical History Abnormal glucose Tubular adenoma of colon Surgical History H/O colonoscopy H/O oral surgery S/P cholecystectomy S/P ERCP Status post surgical removal of pilonidal cyst Family History Mother Hyperlipidemia Hypertension Pancreatic cancer Hypothyroidism Father Hypertension Lung cancer Brother Hypertension S/P CABG (coronary artery bypass graft) Uncle Lung cancer Prostate cancer Uncle Myocardial infarction Other Colorectal cancer Coronary heart disease Heart disease Denies family history of Ovarian cancer Breast cancer Social History Smoking Status: Never smoker Hx Alcohol Use: No Hx Substance Use: No Preferred Language: Bruneian Communication Ability: Effective Java Core Developer Required: No Beliefs That Will Affect Care: None marital status: Current Living Situation: Spouse current occupational status: retired Other Information That Helps Us Care for You: No Feels Safe at Home: Yes Safety Concerns: Feels Safe At This Time Childhood Exposure to Second-Hand Smoke: Yes Dental Care, Regularly: No Physical Activity Frequency: Daily 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 Currently feeling well. No recent gastrointestinal symptoms or fevers. Physical Exam Physical Exam: She is alert and oriented x3. Mood affect appear normal. She answered all questions appropriately. HEENT: Sclerae are anicteric. Pupils are equal and reactive to light and accommodation. Extraocular movements were intact. Neuro: Cranial nerves intact Neck: Examination of the submandibular region did not reveal any significant lymphadenopathy. Carotids are palpable bilaterally and free of bruits on auscultation. There was no evidence of jugular venous distention. The thyroid was not enlarged. Lungs: Lungs are clear to auscultation bilaterally. There are no rales wheezes or rhonchi. She has normal respiratory effort without use of accessory muscles. There is normal pulmonary excursion. Cardiac: The rhythm was regular. S1 and S2 were normal. There are no murmurs on examination. The PMI was not markedly displaced on palpation. Extremities: Patient has bilateral radial pulses that are equal in intensity. There is no evidence cyanosis or clubbing. There was no evidence of significant peripheral edema bilaterally. Skin: There are no rashes noted on examination today. Results & Data ([facility]) Vital Signs (Past 12 Hours) Vital Signs Temp Pulse Pulse Resp BP Pulse Ox 03/06/21 14:17 37.2 C 85 18 155/90 H 96 03/06/21 10:00 37.2 C 85 18 155/90 H 96 03/06/21 08:45 78 03/06/21 06:57 36.7 C 83 18 157/88 H 97 03/06/21 04:06 36.6 C 75 18 123/75 96 Laboratory Results Abnormal Lab Results 03/05/21 03/05/21 03/06/21 15:54 20:10 05:24 WBC 4.21 L RBC 4.15 L Hgb 11.9 L Hct 35.3 L MCV 85.1 MCH 28.7 MCHC 33.7 RDW Std Deviation 44.4 RDW Coeff of Kalyani 14.2 Plt Count 82 L D MPV 11.2 H Immature Gran % (Auto) 0.5 Neut % (Auto) 30.2 Lymph % (Auto) 55.8 [place] % (Auto) 10.7 Eos % (Auto) 1.4 Baso % (Auto) 1.4 Neut # (Auto) 1.27 L Lymph # (Auto) 2.35 [place] # (Auto) 0.45 Eos # (Auto) 0.06 Baso # (Auto) 0.06 Immature Gran # (Auto) 0.02 Sodium Potassium Chloride Carbon Dioxide Anion Gap BUN Creatinine Est Cr Clr Drug Dosing Est GFR ( Amer) Est GFR (Non-Af Amer) BUN/Creatinine Ratio Glucose POC Glucose 96 113 H Calcium Magnesium Total Bilirubin AST ALT Alkaline Phosphatase Total Protein Albumin Globulin Albumin/Globulin Ratio 03/06/21 03/06/21 03/06/21 05:24 07:31 11:13 WBC RBC Hgb Hct MCV MCH MCHC RDW Std Deviation RDW Coeff of Kalyani Plt Count MPV Immature Gran % (Auto) Neut % (Auto) Lymph % (Auto) [place] % (Auto) Eos % (Auto) Baso % (Auto) Neut # (Auto) Lymph # (Auto) [place] # (Auto) Eos # (Auto) Baso # (Auto) Immature Gran # (Auto) Sodium 145 Potassium 3.5 Chloride 116 H Carbon Dioxide 23 Anion Gap 6.0 BUN 19 H Creatinine 0.85 Est Cr Clr Drug Dosing 66.6 Est GFR ( Amer) 83.3 Est GFR (Non-Af Amer) 71.9 BUN/Creatinine Ratio 22.2 H Glucose 90 POC Glucose 100 H 103 H Calcium 8.4 L Magnesium 2.1 Total Bilirubin 0.8 D AST 38 H ALT 50 Alkaline Phosphatase 77 Total Protein 5.7 L Albumin 2.5 L Globulin 3.2 Albumin/Globulin Ratio 0.8 L Diagnostic Findings Admission was essentially normal. Normal LV systolic function without valvular heart disease. PG Care Time/CCT Total # of Minutes Spent Total Time Spent with Patient: Total time spent is greater than 50% in coordination of care (as documented) at patient's floor/unit and/or counseling patient: Coding Level of Care Code 43635 Initial Inpt Care Lvl 3 Diagnoses Atrial fibrillation with rapid ventricular response I48.91
--- NOTE | 2021-03-06 15:20 | Discharge Summary ---
Date of Service March 06, 2021 Admission HPI Per Admitting Provider 65 year old female who presented to the Emergency Room with complaints of dehydration and illness. This started 2 days prior to presentation. The patient has complained of generalized headache, feeling feverish, chills. Patient also noted one episode of nausea and vomiting. Patient subsequently did have a vomiting episode in the emergency department. Emergency department she developed sinus tachycardia with a significantly fast rate possibly atrial fibrillation. She was given metoprolol IV x3, 5, 5, 2.5, then was initiated on Cardizem drip for rate control. She had markedly discordant laboratories with mild leukopenia and thrombocytopenia and comments of anaplasmosis identified on CBC. She is found to be profoundly hypokalemic with a potassium of 2.8 magnesium was 2.1 total bili of 3 and AST of 66. Incidental testing for Lyme disease and Covid is negative No Covid exposures. Patient is not immunized. Principal Diagnosis Anaplasmosis, Rapid atrial fibrillation Discharge Exam Constitutional WD/WN, vitals as above Eyes + anicteric sclerae ENMT external ear and nose normal, oropharynx normal Neck trachea midline, no thyromegaly Respiratory normal respiratory effort, lungs clear to auscultation Cardiovascular RRR, no murmur, no edema Chest (Breasts) Chest: normal inspection of chest Gastrointestinal (Abdomen) normal bowel sounds, soft, nontender, no hepatosplenomegaly Musculoskeletal Extremities: extremities normal to inspection; no cyanosis and no clubbing Skin no rashes, warm and dry Neurologic moves all extremities and awake; no focal motor deficits Psychiatric A+Ox3, euthymic affect Lymphatic no lymphedema Discharge Data Allergies Allergy/AdvReac Type Severity Reaction Status Date / Time Yfrmvqk-Tce-Afd Reductase Allergy Unknown ACHY Verified 03/04/21 12:59 Inhibitor HORTENSIA Inhibitors Allergy Verified 03/04/21 12:59 Consultations 03/04/21 14:32 ED Decision to Admit Stat 03/06/21 09:32 Consult Cardiology Routine Ordered Studies ECHO Hospital Course (1) Atrial fibrillation with rapid ventricular response: Presented in sinus tach, then went into afib around 12:30pm on 03/05. Converted back out of afib at 10:00pm, and none since. Chads-Vasc is a soft 4 (barely counts for age, female is a soft point, pre-diabetic, & HTN). This study (https://www.ahajournals.org/doi/full/10.1161/CIRCULATIONAHA.119.740851) would indicate anticoagulation might not be a bad idea, but given her low platelets, it was deferred. However, consulted Cardiology who did think AC was indicated, but pt declined at this time after shared decision making process. If she has recurrence, should certainly start AC in future. - TTE on 03/05 was normal. - continue home Toprol XL - Defer anticoagulation for now Consider outpt 30 day event monitor (2) Anaplasmosis: Anaplasmosis infection identified on admission blood smear. Thrombocytopenia noted down to 50k at suzie and now back up to 82k on day of discharge; likely to due the infection. Peripheral smear noted no platelet abnormalities. Bilirubin and AST also noted to be high and now much improved with treatment of Anaplasmosis. - Continue doxycycline 100 mg po bid to complete a 10 day course - Monitor platelets and LFTs as outpt in 1 week with PCP Overall feeling much better (3) Prediabetes: A1c was 6.0% this admission and prior checks. - continue metformin (4) Hypertension: BP normal to elevated - continue home beta-bebeto as above - held HCTZ-triamterene on admission but restart on dc as BPs mildly elevated now (5) Hypothyroidism: TSH was 0.4 on admission. - Continue home Synthroid 88 mcg (6) DVT prophylaxis: SCDs - Holding heparin for low platelets Dispo=-stable for dc to home, doing well Total Time Total Time Spent Total Time Spent (In Minutes): 40 min Total Time Includes: Examination of the Patient, Discharge Planning, Medication Reconciliation and Communication With Other Providers (Cardiology) Discharge Plan Discharge Items Patient Disposition: Home - Self-Care Reason For Visit: ATRIAL FIBRILLATION RVR (NEW), ANAPLASMOSIS Discharge Diagnosis: Rapid atrial fibrillation, Anaplasmosis Condition on Discharge: Good Activity: As commented below Bathing: No limitations Exercise/Sports: Gradually increase as tolerated Non-emergency contact: Primary Care Provider Call non-emergency contact if: you have any medication questions, your symptoms worsen, your pain is not controlled, your pain is worsening, your pain is unusual for you and your temperature is above 101 Follow-up/Referrals: Pro,Mejia Sinha MD [Primary Care Provider] - (Follow up within 1-2 weeks) Diet: Carb Consistent or DM2 Addtl Attending Provider Instructions: Please finish out your doxycycline antibiotic for 8 more days for the Anaplasmosis. Doxycycline interacts with your Zonc so please do not take Zinc while on doxycycline. It also interacts with calcium-containing products. Have your PCP repeat your blood work to check your platelets and your liver tests in about one week. You also had a new rapid, irregular heart rhythm called atrial fibrillation. It is recommended that you be on a blood thinner to prevent stroke, but after discussion with the Equipment Engineering Technician, you have decided to hold off on this for now. If you develop any heart palpitations, chest pain, shortness of breath, or lightheadedness, or if you sense/feel an irregular heart beat, please call your doctor or come to the hospital to be seen. Pending Studies at Discharge: No Stand-Alone Forms: My [facility] Medications and DC Order Prescriptions: New doxycycline hyclate 100 mg tablet 100 mg PO BID Qty: 16 RF: 0 Continued fluocinonide 0.05 % cream 1 appln topical BID PRN (Reason: Skin Irritation) Qty: 1 RF: 0 ciclopirox 8 % solution 1 appln topical UD PRN (Reason: Skin Irritation) Qty: 1 RF: 0 cholecalciferol (vitamin D3) [Vitamin D3] 125 mcg (5,000 unit) Tablet 125 mcg PO QAM RF: 0 potassium chloride 10 mEq capsule, extended release 10 meq PO QAM RF: 0 metoprolol succinate 100 mg tablet extended release 24 hr 150 mg PO QAM RF: 0 triamterene-hydrochlorothiazid 37.5-25 mg capsule 1 cap PO QAM RF: 0 levothyroxine 88 mcg tablet 88 mcg PO QAM RF: 0 ezetimibe 10 mg tablet 10 mg PO QAM RF: 0 metformin 750 mg tablet extended release 24 hr 750 mg PO BIDM RF: 0 Discontinued zinc 50 mg Tablet 50 mg PO QAM RF: 0 Discharge Orders: Discharge Order (Routine); Ordered 03/06/21 Ordered By: Sherry Vargas/Other Patient Handouts: Prediabetes, 5 Steps for Eating Healthier, A1C Admission Data Admit Date/Time: 03/04/21 15:15 Attending Provider: Sherry Goldman Admit Provider: Saturnino Paredes Primary Care Provider: Pro,Mejia W. Other Providers: Alfa Rossi ; Etienne Lopez Other Interventions: Discharge Summary Assessment (RN) Last Done: 03/06/21 14:17 Coding Level of Care Code D/C Day Management >30 mins Diagnoses Atrial fibrillation with rapid ventricular response I48.91 Anaplasmosis A77.49 Prediabetes R73.03 Hypertension I10 Hypothyroidism E03.9 DVT prophylaxis Z29.9
== END 2021-03-06 15:42 | disposition home or self-care (01) ==
LOC: ED 11:24 → SUATTDRO 15:15 → 2S 15:15